=== PATIENT | female | born 1980 | race Caucasian/White ===

== ENCOUNTER 2022-09-08 15:39 | Inpatient (IN) ==
[2022-09-08] MEDS ORDERED: 0.9 % SODIUM CHLORIDE 1,000 ML IV ONE ×2 (16:07→20:46)
[2022-09-08] MEDS ORDERED: ONDANSETRON 4 MG/2 ML VIAL IV PRN (16:07)
--- NOTE | 2022-09-08 16:07 | Emergency Department Note ---
Wound/Laceration HIP General Chief Complaint: Wound/Laceration Stated Complaint: Foot problem Time Seen by Provider: 09/08/22 16:01 Source: patient Mode of arrival: wheelchair Limitations: no limitations History of Present Illness HPI Narrative: Narrative: This is a 41-year-old female with history of type 1 diabetes who presents to the emergency department for evaluation of her right foot status post amputation. Per patient's family, they state that patient was recently discharged from the assisted that she was at. They state that her foot was not being taken care of appropriately and they have noticed increased swelling and redness. They also state that she had been not been given her prescriptions or her insulin on a regular basis. They are concerned about a worsening foot infection. Patient denies any fevers. Related Data Home Medications Medication Instructions Recorded Confirmed Pepto-Bismol 1 dose PO PRN PRN Abdominal 04/22/22 06/20/22 Discomfort aspirin-sodium bicarbonate-citric 324 mg PO QDAY 04/22/22 06/20/22 acid 324 mg effervescent tablet duloxetine 30 mg PO DAILY 04/22/22 06/20/22 naloxone 4 mg/actuation nasal spray 4 mg intranasal Q2M PRN Opioid 04/22/22 06/20/22 Overdose pantoprazole 40 mg PO BID 04/22/22 06/20/22 phosphorated carbohydrate oral 1 ml PO PRN PRN Abdominal 04/22/22 06/20/22 solution (Emetrol oral solution) Discomfort promethazine 25 mg tablet 25 mg PO Q6H PRN Nausea 04/22/22 06/21/22 trazodone 100 mg PO HS PRN Insomnia 04/22/22 06/20/22 albuterol sulfate 90 mcg/actuation 2 puff inhalation Q6H PRN 06/20/22 06/20/22 aerosol inhaler Shortness Of Breath insulin glargine 100 unit/mL (3 20 unit subcut BID 06/20/22 06/20/22 mL) subcutaneous pen Bacillus coagulans-inulin 1 1 cap PO DAILY 06/21/22 06/21/22 billion cell-250 mg capsule atorvastatin 80 mg tablet 80 mg PO QDAY 06/21/22 06/21/22 buspirone 5 mg tablet 10 mg PO TID 06/21/22 06/21/22 gabapentin enacarbil 300 mg 900 mg PO TID 06/21/22 06/21/22 tablet,extended release insulin lispro 100 unit/mL 5 unit subcut AC 06/21/22 06/21/22 subcutaneous pen lisinopril 10 mg tablet 20 mg PO BID 06/21/22 06/21/22 prochlorperazine maleate 5 mg 10 mg PO QID 06/21/22 06/21/22 tablet Allergies Allergy/AdvReac Type Severity Reaction Status Date / Time cefepime Allergy Severe Difficulty Verified 09/08/22 15:43 Breathing Review of Systems ROS ROS Narrative: Narrative: All systems ED: reviewed and negative except as stated. PFSH Narrative Patient History Narrative: Narrative: Medical/Surgical/Family History All Active Problems (Updated 09/08/22 @ 22:33 by Massiel Fong PA-C) Abdominal pain, diffuse (Acute) Anemia (Acute) Cirrhosis (Acute) Hematemesis (Acute) Cellulitis of foot, right (Acute) DKA (diabetic ketoacidosis) (Acute) Migraine headache (Acute) Stage 1 acute kidney injury (Acute) DKA (diabetic ketoacidosis) (Acute) Elevated brain natriuretic peptide (BNP) level (Acute) Edema of face (Acute) SOB (shortness of breath) (Acute) Anasarca (Acute) Methamphetamine abuse (Acute) Acute on chronic kidney failure (Acute) DKA, type 2 (Acute) Cirrhosis of liver (Acute) Anemia (Acute) Hyperglycemia due to type 2 diabetes mellitus (Acute) Abdominal pain (Acute) Social History Smoking Status: Current every day smoker Exam Narrative Narrative: Narrative: General Limitations: no limitations General appearance: Present alert, anxious, nontoxic and tearful (states that her son is "in crisis") Head Head: Present atraumatic and normocephalic Eye Eye: Present normal appearance; Absent scleral icterus Chest Chest: Present symmetric chest wall rise Respiratory Respiratory: Absent respiratory distress Expanded Lower Extremity Foot/toe: Present tenderness, swelling, erythema and amputation Top foot image: 1. Right foot is noted to have amputation of all 5 toes down to the distal metatarsals of the of the first through fifth metatarsals. There is a wound noted along the incision line at the first second metatarsal amputation. It is white with a odor to it. It is tender to the touch and there is a lot of swelli ng of the dorsum of the foot which is red and hot to the touch. Neurological Neurological: Present alert and oriented X3 Psychiatric Psychiatric: Present tearful Course Vital Signs Vital signs: Vital Signs Temperature 97.5 F 09/08/22 15:41 Pulse Rate 105 H 09/08/22 15:41 Respiratory Rate 20 09/08/22 15:41 Blood Pressure 166/103 09/08/22 15:41 Pulse Oximetry (%) 98 09/08/22 15:41 Oxygen Delivery Method Room Air 09/08/22 15:41 Temperature 97.5 F 09/08/22 15:41 Pulse Rate 89 09/08/22 19:00 Respiratory Rate 20 09/08/22 15:41 Blood Pressure 162/113 09/08/22 21:25 Pulse Oximetry (%) 100 09/08/22 19:00 Oxygen Delivery Method Room Air 09/08/22 19:00 MDM MDM Narrative Medical decision making narrative: Narrative: This is a 41-year-old female who presents to the emergency department for evaluation of a right foot amputation. IV access was established for administration of fluids and medications. Labs were collected. It was noted that her glucose level was 603 and her Chem-8. She was immediately given 2 L of normal saline. ESR is 97, CRP is 1.10, beta hydroxybutyrate is 0.81, procalcitonin is 0.13. Patient does not have an elevated white blood cell count. Or a left shift. An x-ray of her right foot did not reveal any signs of osteomyelitis. It did show normal amputation changes. After 2 L of fluid it was noted that the patient's blood glucose level decreased down to 379. At this point she was given 5 units of insulin. She was also started on 1 g of vancomycin along with 4.5 g of Zosyn. Considering the way her foot looks her elevated ESR and the fact that she has hyperglycemia with the elevated hydroxybutyrate and elevated Procalcitonin, I feel that she would benefit from admission to receive IV antibiotics be evaluated by wound clinic and set up for follow-up. I spoke with Dr. Garnica who accepted the patient for admission. At the time of admitting this patient, they were stable for this particular service/floor. Dr. Garnica has accepted the patient to his service based on review of the medical work-up, vitals, history and physical. Dr. Garnica feels comfortable with this patient on his service. Occasionally, patient's clinical status may worsen in the emergency department or on the floor from their pathology presenting requiring further work-up or a higher level of care. Sepsis Sepsis Identified: No Differential Diagnosis Differential Diagnosis: Cellulitis, osteomyelitis, abscess, infected foot ulcer, DKA, hyperglycemia Medical Records Medical records reviewed: Yes I reviewed the patient's medical records. Lab Data Lab results reviewed: Yes I reviewed the patient's lab results. 09/08/22 16:32 Labs: Lab Results 09/08/22 09/08/22 09/08/22 Range/Units 16:32 16:32 16:32 WBC 8.9 (4.5-11.0) K/mcL RBC 3.36 L (3.59-5.38) M/mcL Hgb 9.5 L (11.2-15.7) g/dL Hct 29.3 L (34.1-44.9) % POC Hct (36-48) MCV 87.2 (80.0-100.0) fL MCH 28.3 (26.0-34.0) pg MCHC 32.4 (31.0-36.0) g/dL RDW 13.3 (11.5-14.5) % Plt Count 278 (140-440) K/mcL MPV 11.0 (8.8-12.5) fL Immature Gran % (Auto) 0.2 (0.0-0.5) % Neut % (Auto) 74.0 (38.0-78.0) % Lymph % (Auto) 17.4 (15.5-49.0) % [place] % (Auto) 7.5 (1.0-12.0) % Eos % (Auto) 0.3 (0.0-7.0) % Baso % (Auto) 0.6 (0.0-2.0) % Lymph # (Auto) 1.55 (1.50-4.80) K/mcL [place] # (Auto) 0.67 (0.10-0.90) K/mcL Eos # (Auto) 0.03 (0.00-0.70) K/mcL Baso # (Auto) 0.05 (0.00-0.30) K/mcL Immature Gran # 0.02 (0.00-0.05) K/mcl Absolute Neutrophils 6.60 (1.80-8.00) K/mcL ESR 97 H (0-20) mm/hr POC VBG pH (7.32-7.42) POC VBG pCO2 at Temp (41-51) POC VBG pO2 (25-40) POC VBG HCO3 (24-28) POC VBG Total CO2 (25-29) POC Venous O2 Sat (40-70) POC VBG Base Excess (-2-2) VBG Lactic Acid (0.5-2) POC Sodium (133-145) POC Potassium (3.3-5.1) POC Chloride (96-108) POC Total CO2 (22-30) POC Anion Gap (8.0-16.0) POC BUN (6-20) POC Creatinine (0.6-1.2) POC Glucose (70-105) POC WB Ioniz Calcium (1.16-1.32) Total Bilirubin 0.4 (0.1-1.0) mg/dL Direct Bilirubin < 0.2 (0-0.3) mg/dL AST 13 (<32) U/L ALT 19 (<40) U/L Alkaline Phosphatase 190 H (39-117) U/L C-Reactive Protein 1.10 H (0.03-0.80) mg/dL Total Protein 6.8 (5.9-8.4) gm/dL Albumin 2.7 L (3.2-5.2) gm/dL Globulin 4.1 H (2.2-3.7) gm/dL Beta-Hydroxybutyrate 0.81 H (<0.27) mmol/L Procalcitonin 0.13 H (<0.10) ng/mL 09/08/22 09/08/22 Range/Units 16:36 16:40 WBC (4.5-11.0) K/mcL RBC (3.59-5.38) M/mcL Hgb (11.2-15.7) g/dL Hct (34.1-44.9) % POC Hct 31.0 L (36-48) MCV (80.0-100.0) fL MCH (26.0-34.0) pg MCHC (31.0-36.0) g/dL RDW (11.5-14.5) % Plt Count (140-440) K/mcL MPV (8.8-12.5) fL Immature Gran % (Auto) (0.0-0.5) % Neut % (Auto) (38.0-78.0) % Lymph % (Auto) (15.5-49.0) % [place] % (Auto) (1.0-12.0) % Eos % (Auto) (0.0-7.0) % Baso % (Auto) (0.0-2.0) % Lymph # (Auto) (1.50-4.80) K/mcL [place] # (Auto) (0.10-0.90) K/mcL Eos # (Auto) (0.00-0.70) K/mcL Baso # (Auto) (0.00-0.30) K/mcL Immature Gran # (0.00-0.05) K/mcl Absolute Neutrophils (1.80-8.00) K/mcL ESR (0-20) mm/hr POC VBG pH 7.37 (7.32-7.42) POC VBG pCO2 at Temp 27.9 L (41-51) POC VBG pO2 44 H (25-40) POC VBG HCO3 16.3 L (24-28) POC VBG Total CO2 17.0 L (25-29) POC Venous O2 Sat 80.0 H (40-70) POC VBG Base Excess -9.0 L (-2-2) VBG Lactic Acid 1.1 (0.5-2) POC Sodium 130 L (133-145) POC Potassium 4.4 (3.3-5.1) POC Chloride 102 (96-108) POC Total CO2 19.0 L (22-30) POC Anion Gap 15.0 (8.0-16.0) POC BUN 31 H (6-20) POC Creatinine 1.7 H (0.6-1.2) POC Glucose 603 H* (70-105) POC WB Ioniz Calcium 1.20 (1.16-1.32) Total Bilirubin (0.1-1.0) mg/dL Direct Bilirubin (0-0.3) mg/dL AST (<32) U/L ALT (<40) U/L Alkaline Phosphatase (39-117) U/L C-Reactive Protein (0.03-0.80) mg/dL Total Protein (5.9-8.4) gm/dL Albumin (3.2-5.2) gm/dL Globulin (2.2-3.7) gm/dL Beta-Hydroxybutyrate (<0.27) mmol/L Procalcitonin (<0.10) ng/mL Radiology Data Radiology results reviewed: Yes I reviewed the patient's radiology results. Radiology results narrative: [facility] NAME: Rebekah Angulo [address] [place] [address] : 1980 [address] Service Date: 09/08/22 Report # [id number] [place] [address] Elvis Jimenez M.D. MR #: [id number] XRay Report Signed Ordering Physician:Massiel Fong PA-C Date of Service:09/08/22 Procedure(s):XR foot comp RT 3V CLINICAL INFORMATION: diabetic, worsening wound r/o osteo COMPARISON: 07/09/2022 FINDINGS: Transmetatarsal amputation of the third fourth and fifth rays seen as before. Since the previous exam, first and second amputations have been extended to the mid metatarsal levels. There is moderate callus surrounding the first and second mid metatarsals at the amputation site. No definite evidence of osteomyelitis. Other joint spaces are normal. Diffuse soft tissue swelling appreciated. IMPRESSION: Amputation changes. Interpreted and Authenticated by: Elvis Jimenez 09/08/22 19 19 Mold Insert Changer: <Electronically signed by Elvis Jimenez M.D. in OV> 09/08/221722 Pulse Oximetry Data Pulse Ox %: 100 Interpretation: O2 sats are 100% on room air. Patient does not show any signs of hypoxia. Discharge Plan Patient/Caregiver Discharge Instructions Pt seen by FOREST FIREFIGHTER/PA only: Yes Clinical Impression: Cellulitis of foot, right, DKA (diabetic ketoacidosis) Patient Disposition: Xfer As Inpt ([facility]) Follow up with: No,PCP [Primary Care Provider] - Prescriptions: No Action aspirin-sod bicarb-citric acid 324 mg Tablet, Effervescent 324 mg PO QDAY naloxone 4 mg/actuation [place],Non-Aerosol 4 mg INTRANASAL Q2M PRN (Reason: Opioid Overdose) Rx Instructions: spray 1 dose into ONE nostril; alternate nostrils w each dose until help arrives Emetrol Solution 1 ml PO PRN PRN (Reason: Abdominal Discomfort) promethazine 25 mg Tablet 25 mg PO Q6H PRN (Reason: Nausea) Pepto-Bismol 1 dose PO PRN PRN (Reason: Abdominal Discomfort) duloxetine 30 mg PO DAILY pantoprazole 40 mg PO BID trazodone 100 mg PO HS PRN (Reason: Insomnia) insulin glargine 100 unit/mL (3 mL) Insulin Pen 20 unit SUBCUT BID albuterol sulfate 90 mcg/actuation Hfa Aerosol Inhaler 2 puff INHALATION Q6H PRN (Reason: Shortness Of Breath) atorvastatin 80 mg Tablet 80 mg PO QDAY buspirone 5 mg Tablet 10 mg PO TID Bacillus coagulans-inulin 1 billion-250 cell-mg Capsule 1 cap PO DAILY gabapentin enacarbil 300 mg Tablet Extended Release 900 mg PO TID lisinopril 10 mg Tablet 20 mg PO BID prochlorperazine maleate 5 mg Tablet 10 mg PO QID Rx Instructions: Take before meals insulin lispro 100 unit/mL Insulin Pen 5 unit SUBCUT AC
[2022-09-08 16:46] LABS: POC Calcium, Ionized 1.2 (1.16-1.32); POC Creatinine 1.7 (0.6-1.2); POC Potassium 4.4 (3.3-5.1)
[2022-09-08] MEDS: morphine 2 MG/ML VIAL IV PRN ×2 (16:58→18:12)
[2022-09-08 17:14] LABS: Basophils # (Auto) 0.05 K/mcL (0.00-0.30); Basophils % (Auto) 0.6 % (0.0-2.0); Eosinophils # (Auto) 0.03 K/mcL (0.00-0.70); Eosinophils % (Auto) 0.3 % (0.0-7.0); Hematocrit 29.3 % (34.1-44.9); Hemoglobin 9.5 g/dL (11.2-15.7); Lymphocytes # (Auto) 1.55 K/mcL (1.50-4.80); Lymphocytes % (Auto) 17.4 % (15.5-49.0); Mean Cell Volume 87.2 fL (80.0-100.0); Mean Corpuscular HGB Conc 32.4 g/dL (31.0-36.0); Monocytes # (Auto) 0.67 K/mcL (0.10-0.90); Monocytes % (Auto) 7.5 % (1.0-12.0); Platelet Count 278 K/mcL (140-440); RBC 3.36 M/mcL (3.59-5.38); Red Cell Distribution Width 13.3 % (11.5-14.5); WBC 8.9 K/mcL (4.5-11.0)
--- NOTE | 2022-09-08 17:26 | XRay Report ---
CLINICAL INFORMATION: diabetic, worsening wound r/o osteo COMPARISON: 07/09/2022 FINDINGS: Transmetatarsal amputation of the third fourth and fifth rays seen as before. Since the previous exam, first and second amputations have been extended to the mid metatarsal levels. There is moderate callus surrounding the first and second mid metatarsals at the amputation site. No definite evidence of osteomyelitis. Other joint spaces are normal. Diffuse soft tissue swelling appreciated. IMPRESSION: Amputation changes. Interpreted and Authenticated by: Elvis Jimenez 09/08/22
[2022-09-08 17:29] LABS: Erythrocyte Sedimentation Rate 97 mm/hr (0-20)
[2022-09-08 17:33] LABS: ALT/SGPT 19 U/L (<40); AST/SGOT 13 U/L (<32); Albumin 2.7 gm/dL (3.2-5.2); Alkaline Phosphatase 190 U/L (39-117); Beta Hydroxybutyrate 0.81 mmol/L (<0.27); Bilirubin,Direct < 0.2 mg/dL (0-0.3); Bilirubin,Total 0.4 mg/dL (0.1-1.0); Globulin 4.1 gm/dL (2.2-3.7)
[2022-09-08] MEDS ORDERED: KETOROLAC 30 MG/ML VIAL IV ONE (20:24)
[2022-09-08] MEDS ORDERED: morphine 4 MG/ML VIAL IV ONE (20:24)
[2022-09-08] MEDS ORDERED: KETOROLAC 15 MG/ML VIAL ONE (20:50)
[2022-09-08] MEDS ORDERED: morphine 4 MG/ML VIAL ONE (20:50)
[2022-09-08] MEDS ORDERED: INSULIN REGULAR, HUMAN 1 UNIT/0.01 ML UNIT SQ ONE (20:59)
[2022-09-08] MEDS ORDERED: PIPERACILLIN SODIUM/TAZOBACTAM 4.5 GM in DEXTROSE 5% IN WATER 50 ML IV ONE (21:00)
[2022-09-08] MEDS ORDERED: VANCOMYCIN 1,000 MG in 0.9 % SODIUM CHLORIDE 250 ML IV ONE (21:00)
[2022-09-08] MEDS ORDERED: INSULIN REGULAR, HUMAN 1 UNIT/0.01 ML UNIT ONE (21:03)
--- NOTE | 2022-09-08 22:37 | Internal Med History&Physical ---
HPI History of Present Illness Patient information: Note initiated : 09/08/22 at 10:34 pm Service Date, if different from initiated Date: [] Patient: Rebekah Angulo 41 y/o F admitted on . Chief Complaint: [] History of present illness: Ms. Angulo is a 41-year-old female with a history of type 1 diabetes mellitus, diabetic infections requiring lower extremity amputations, chronic kidney disease stage III, liver cirrhosis, history of substance use disorder presented to the ED with concerns for a right foot infection at the site of prior partial foot amputation. The patient says that she had her foot partially amputated in [place], [facility] it was at [facility]. The patient was then discharged to a long term facility in [place], [place] and recently discharged to home. Recently there has been purulence and pain from a dehisced area at the surgical site on her right foot. In the emergency department, the patient was afebrile and vitals were normal except for moderate hypertension. There is no leukocytosis, hemoglobin was 9.5 which was higher than her baseline. Sodium level was 130, renal function was at her baseline. [id number] glucose check was initially 603 and improved to 290 in the ED. An x-ray of the right foot did not show any evidence of bone changes that would be concerning for osteomyelitis. Procalcitonin level was 0.13. CRP level was 1.1. The patient was given vancomycin IV and Zosyn. Hospital medicine asked to admit the patient. Review of systems Constitutional: no fever, fatigue, or weight loss Eyes: no vision changes or pain Cardiovascular: no chest pain, no palpitations Respiratory: no cough or dyspnea Gastrointestinal: no abdominal pain, no nausea, vomiting, or diarrhea Genitourinary: no dysuria or difficulty voiding Musculoskeletal: no arthralgia or myalgia Integumentary: Purulence at right foot surgical incision, increase in pain. History of left BKA partial right foot amputation. Neurological: Positive for decreased sensation in right lower extremity. Psychiatric: no anxiety or depression Physical exam Head: Atraumatic, normal inspection. Eyes: normal appearance, no scleral icterus. Neck: full ROM Respiratory: no respiratory distress. Cardiovascular: normal rate and rhythm, S1, S2. GI/Abdominal: soft, nontender, no guarding. Extremities: Dehisced wound at right partial foot amputation surgical incision site, purulence present, no fluctuance on exam history of left BKA. Neurological: CN II-XII intact, intact motor PFSH PFSH All Active Problems (Updated 09/08/22 @ 22:33 by Massiel Fong PA-C) Abdominal pain, diffuse (Acute) Anemia (Acute) Cirrhosis (Acute) Hematemesis (Acute) Cellulitis of foot, right (Acute) DKA (diabetic ketoacidosis) (Acute) Migraine headache (Acute) Stage 1 acute kidney injury (Acute) DKA (diabetic ketoacidosis) (Acute) Elevated brain natriuretic peptide (BNP) level (Acute) Edema of face (Acute) SOB (shortness of breath) (Acute) Anasarca (Acute) Methamphetamine abuse (Acute) Acute on chronic kidney failure (Acute) DKA, type 2 (Acute) Cirrhosis of liver (Acute) Anemia (Acute) Hyperglycemia due to type 2 diabetes mellitus (Acute) Abdominal pain (Acute) Social History smoking status: Current every day smoker smoking status start date: 03/01/91 MEDS/ALLERGIES Home Medications and Allergies Home Medications Medication Instructions Recorded Confirmed Type aspirin-sodium bicarbonate-citric 324 mg PO QDAY 04/22/22 09/09/22 History acid 324 mg effervescent tablet naloxone 4 mg/actuation nasal spray 4 mg intranasal Q2M PRN Opioid 04/22/22 09/09/22 History Overdose pantoprazole 40 mg PO BID 04/22/22 09/09/22 History promethazine 25 mg tablet 25 mg PO Q6H PRN Nausea 04/22/22 09/09/22 History trazodone 100 mg PO HS PRN Insomnia 04/22/22 09/09/22 History albuterol sulfate 90 mcg/actuation 2 puff inhalation Q6H PRN 06/20/22 09/09/22 History aerosol inhaler Shortness Of Breath insulin glargine 100 unit/mL (3 38 unit subcut QAM 06/20/22 09/09/22 History mL) subcutaneous pen Bacillus coagulans-inulin 1 1 cap PO DAILY 06/21/22 09/09/22 History billion cell-250 mg capsule atorvastatin 80 mg tablet 80 mg PO QDAY 06/21/22 09/09/22 History buspirone 5 mg tablet 10 mg PO BID 06/21/22 09/09/22 History gabapentin enacarbil 300 mg 300 mg PO TID 06/21/22 09/09/22 History tablet,extended release insulin lispro 100 unit/mL 7 unit subcut AC 06/21/22 09/09/22 History subcutaneous pen lisinopril 10 mg tablet 10 mg PO QAM 06/21/22 09/09/22 History acetaminophen 500 mg tablet 500 mg PO Q4HP PRN Pain 09/09/22 09/09/22 History amlodipine 5 mg tablet 5 mg PO BID 09/09/22 09/09/22 History cholecalciferol (vitamin D3) 125 125 mcg PO QDAY 09/09/22 09/09/22 History mcg (5,000 unit) tablet duloxetine 30 mg capsule,delayed 30 mg PO QDAY 09/09/22 09/09/22 History release sprinkle hydrocodone 5 mg-acetaminophen 325 1 tab PO Q6H PRN Pain 09/09/22 09/09/22 History mg tablet metoclopramide HCl 5 mg tablet 5 mg PO ACHS PRN Nausea 09/09/22 09/09/22 History metoprolol succinate 100 mg 100 mg PO BID 09/09/22 09/09/22 History tablet,extended release 24 hr simethicone 80 mg chewable tablet 80 mg PO QID 09/09/22 09/09/22 History Allergies Allergy/AdvReac Type Severity Reaction Status Date / Time cefepime Allergy Severe Swelling Verified 09/09/22 01:25 of Lip/Tongue/Throat Peanuts AdvReac Intermediate Rash Uncoded 09/09/22 01:26 EXAM Constitutional Vitals: Temp Pulse Resp BP Pulse Ox O2 Del Method 97.5 F 78 20 158/98 100 Room Air 09/08/22 15:41 09/08/22 22:16 09/08/22 15:41 09/08/22 22:16 09/08/22 22:16 09/08/22 19:00 DATA Data Completed and Pending Labs: Labs from last 24 hours 09/08/22 09/08/22 09/08/22 16:40 16:36 16:32 WBC RBC Hgb Hct POC Hct 31.0 L MCV MCH MCHC RDW Plt Count MPV Immature Gran % (Auto) Neut % (Auto) Lymph % (Auto) [place] % (Auto) Eos % (Auto) Baso % (Auto) Lymph # (Auto) [place] # (Auto) Eos # (Auto) Baso # (Auto) Immature Gran # Absolute Neutrophils ESR POC VBG pH 7.37 POC VBG pCO2 at Temp 27.9 L POC VBG pO2 44 H POC VBG HCO3 16.3 L POC VBG Total CO2 17.0 L POC Venous O2 Sat 80.0 H POC VBG Base Excess -9.0 L VBG Lactic Acid 1.1 POC Sodium 130 L POC Potassium 4.4 POC Chloride 102 POC Total CO2 19.0 L POC Anion Gap 15.0 POC BUN 31 H POC Creatinine 1.7 H POC Glucose 603 H* POC WB Ioniz Calcium 1.20 Total Bilirubin Direct Bilirubin AST ALT Alkaline Phosphatase C-Reactive Protein Total Protein Albumin Globulin Beta-Hydroxybutyrate Procalcitonin 0.13 H 09/08/22 09/08/22 16:32 16:32 WBC 8.9 RBC 3.36 L Hgb 9.5 L Hct 29.3 L POC Hct MCV 87.2 MCH 28.3 MCHC 32.4 RDW 13.3 Plt Count 278 MPV 11.0 Immature Gran % (Auto) 0.2 Neut % (Auto) 74.0 Lymph % (Auto) 17.4 [place] % (Auto) 7.5 Eos % (Auto) 0.3 Baso % (Auto) 0.6 Lymph # (Auto) 1.55 [place] # (Auto) 0.67 Eos # (Auto) 0.03 Baso # (Auto) 0.05 Immature Gran # 0.02 Absolute Neutrophils 6.60 ESR 97 H POC VBG pH POC VBG pCO2 at Temp POC VBG pO2 POC VBG HCO3 POC VBG Total CO2 POC Venous O2 Sat POC VBG Base Excess VBG Lactic Acid POC Sodium POC Potassium POC Chloride POC Total CO2 POC Anion Gap POC BUN POC Creatinine POC Glucose POC WB Ioniz Calcium Total Bilirubin 0.4 Direct Bilirubin < 0.2 AST 13 ALT 19 Alkaline Phosphatase 190 H C-Reactive Protein 1.10 H Total Protein 6.8 Albumin 2.7 L Globulin 4.1 H Beta-Hydroxybutyrate 0.81 H Procalcitonin A/P Narrative A/P Narrative: Assessment: 41 year old female with a history of multiple comorbidities including Type 1 diabetes mellitus, CKD stage 3, liver cirrhosis, history of substance use disorder, left BKA, recent foot amputation reportedly at [facility] in [place] admitted for an infection at the foot amputation surgical site. Plan: -Vancomycin and Zosyn. -IV fluid. -Blood cultures. -Analgesics. -MRI right foot. -Lantus, prandial NovoLog, SSI low dose. -Wound cares. -Discuss with wound care surgery. -Home medications reconciliation. -DVT prophylaxis: Heparin SQ. -CODE STATUS: Platform Engineer Spent With Patient Time: Total time spent is greater than 50% in coordination of care (as documented) at patient's floor/unit and/or counseling patient:
[2022-09-08] MEDS ORDERED: VANCOMYCIN PER PHARMACY IV ONE (23:18)
[2022-09-08] MEDS ORDERED: DEXTROSE 50% 50 ML VIAL IV PRN (23:18)
[2022-09-08] MEDS ORDERED: ACETAMINOPHEN 325 MG TABLET PO PRN (23:18)
[2022-09-08] MEDS ORDERED: SENNOSIDES 1 TABLET PO PRN (23:18)
[2022-09-08] MEDS ORDERED: DEXTROSE 31 GM ORAL.SUSP PO PRN (23:18)
[2022-09-08] MEDS ORDERED: LACTULOSE 20 GM/30 ML ORAL.SOL PO PRN (23:18)
[2022-09-08] MEDS: PIPERACILLIN SODIUM/TAZOBACTAM 4.5 GM in DEXTROSE 5% IN WATER 50 ML IV SCH (23:42)
[2022-09-08] MEDS: HYDROcodone/APAP 5/325MG TABLET PO PRN (23:44)
[2022-09-08] MEDS ORDERED: HYDROcodone/APAP 5/325MG TABLET PO ONE (23:45)
[2022-09-08] MEDS ORDERED: INSULIN GLARGINE, HUMAN 1 UNIT/0.01 ML SQ ONE (23:58)
[2022-09-08] MEDS: INSULIN GLARGINE, HUMAN 1 UNIT/0.01 ML SQ SCH ×2 (23:58)
[2022-09-09] MEDS: 0.9 % SODIUM CHLORIDE 1,000 ML IV SCH ×2 (00:07→07:03)
[2022-09-09] MEDS ORDERED: ACETAMINOPHEN 325 MG TABLET PO ONE (01:21)
[2022-09-09] MEDS: HYDROcodone/APAP 5/325MG TABLET PO PRN ×2 (03:07→07:02)
[2022-09-09] MEDS ORDERED: HYDROcodone/APAP 5/325MG TABLET PO ONE (03:10)
[2022-09-09] MEDS: ONDANSETRON 4 MG/2 ML VIAL IV PRN ×3 (05:37→20:00)
[2022-09-09] MEDS ORDERED: ONDANSETRON 4 MG/2 ML VIAL ONE (05:40)
[2022-09-09] MEDS: 0.9 % SODIUM CHLORIDE 10 ML SYRINGE IV SCH ×3 (07:03→21:24)
[2022-09-09] MEDS: PIPERACILLIN SODIUM/TAZOBACTAM 4.5 GM in DEXTROSE 5% IN WATER 50 ML IV SCH (07:03)
[2022-09-09 07:04] LABS: Basophils # (Auto) 0.05 K/mcL (0.00-0.30); Basophils % (Auto) 0.8 % (0.0-2.0); Eosinophils # (Auto) 0.17 K/mcL (0.00-0.70); Eosinophils % (Auto) 2.7 % (0.0-7.0); Hematocrit 24.4 % (34.1-44.9); Hemoglobin 7.6 g/dL (11.2-15.7); Lymphocytes # (Auto) 1.88 K/mcL (1.50-4.80); Lymphocytes % (Auto) 29.5 % (15.5-49.0); Mean Cell Volume 91.4 fL (80.0-100.0); Mean Corpuscular HGB Conc 31.1 g/dL (31.0-36.0); Mean Platelet Volume 10.5 fL (8.8-12.5); Monocytes # (Auto) 0.66 K/mcL (0.10-0.90); Monocytes % (Auto) 10.3 % (1.0-12.0); Neutrophils % (Auto) 56.5 % (38.0-78.0); Platelet Count 209 K/mcL (140-440); RBC 2.67 M/mcL (3.59-5.38); Red Cell Distribution Width 13.9 % (11.5-14.5); WBC 6.4 K/mcL (4.5-11.0)
[2022-09-09] MEDS ORDERED: INSULIN LISPRO 1 UNIT/0.01 ML UNIT SQ SCH ×3 (07:30→11:30)
[2022-09-09 07:36] LABS: ALT/SGPT 16 U/L (<40); AST/SGOT 14 U/L (<32); Albumin 2.3 gm/dL (3.2-5.2); Albumin/Globulin Ratio 0.7 (1.0-2.3); Alkaline Phosphatase 160 U/L (39-117); Bilirubin,Direct < 0.2 mg/dL (0-0.3); Bilirubin,Total < 0.2 mg/dL (0.1-1.0); Blood Urea Nitrogen 29 mg/dL (6-20); Calcium 8.1 mg/dL (8.6-10.4); Carbon Dioxide 17 mmol/L (22-30); Chloride 106 mmol/L (96-108); Globulin 3.2 gm/dL (2.2-3.7); Glomerular Filtration Rate 39; Glucose 290 mg/dL (70-105); Lactate Dehydrogenase 273 U/L (135-225); Triglycerides 211 mg/dL (<150); Uric Acid 3.6 mg/dL (2.5-8.0)
[2022-09-09] MEDS ORDERED: MAGNESIUM SULFATE 2 GM/50 ML BAG IV ONE (08:01)
[2022-09-09] MEDS: HEPARIN 5,000 UNIT/ML VIAL SQ SCH ×2 (09:05→21:14)
[2022-09-09] MEDS: DOCUSATE SODIUM 100 MG CAPSULE PO SCH ×2 (09:06→21:13)
[2022-09-09] MEDS: morphine 15 MG TAB.SR.12H PO SCH ×2 (09:34→21:15)
[2022-09-09] MEDS ORDERED: MEROPENEM 0.5 GM in 0.9 % SODIUM CHLORIDE 50 ML IV SCH (10:30)
[2022-09-09] MEDS ORDERED: VANCOMYCIN PER PHARMACY IV SCH (10:30)
[2022-09-09] MEDS: MEROPENEM 1 GM in 0.9 % SODIUM CHLORIDE 50 ML IV SCH ×2 (10:50→21:24)
[2022-09-09] MEDS: VANCOMYCIN 1,000 MG in 0.9 % SODIUM CHLORIDE 250 ML IV SCH (10:50)
[2022-09-09] MEDS: HYDROmorphone 0.5 MG/0.5 ML SYRINGE IV PRN ×3 (13:12→19:41)
--- NOTE | 2022-09-09 15:09 | General Surgery Consult Note ---
HPI Date of Consult Consult Date: 09/09/22 Requesting physician: Ruel Garnica Primary Care Provider: PCP No Consult Narrative History of present illness: Admitted via ER with Cellulitis RIGHT foot around TMA surgical scar site. cc:: I know this patient well. I last saw her in MAY when she was is hospital here. I reviewed all notes and her progress with Twila RN taking care of patient. Spoke with Dr. Garnica about plan of care. CC: Ruel Garnica MD [facility] PFS All Active Problems Abdominal pain, diffuse (Acute) Anemia (Acute) Cirrhosis (Acute) Hematemesis (Acute) Cellulitis of foot, right (Acute) DKA (diabetic ketoacidosis) (Acute) Migraine headache (Acute) Stage 1 acute kidney injury (Acute) DKA (diabetic ketoacidosis) (Acute) Elevated brain natriuretic peptide (BNP) level (Acute) Edema of face (Acute) SOB (shortness of breath) (Acute) Anasarca (Acute) Methamphetamine abuse (Acute) Acute on chronic kidney failure (Acute) DKA, type 2 (Acute) Cirrhosis of liver (Acute) Anemia (Acute) Hyperglycemia due to type 2 diabetes mellitus (Acute) Abdominal pain (Acute) Social History smoking status: Current every day smoker smoking status start date: 03/01/91 MEDS/ALLERGIES Home Medications and Allergies Home Medications Medication Instructions Recorded Confirmed Type aspirin-sodium bicarbonate-citric 324 mg PO QDAY 04/22/22 09/09/22 History acid 324 mg effervescent tablet naloxone 4 mg/actuation nasal spray 4 mg intranasal Q2M PRN Opioid 04/22/22 09/09/22 History Overdose pantoprazole 40 mg PO BID 04/22/22 09/09/22 History promethazine 25 mg tablet 25 mg PO Q6H PRN Nausea 04/22/22 09/09/22 History trazodone 100 mg PO HS PRN Insomnia 04/22/22 09/09/22 History albuterol sulfate 90 mcg/actuation 2 puff inhalation Q6H PRN 06/20/22 09/09/22 History aerosol inhaler Shortness Of Breath insulin glargine 100 unit/mL (3 38 unit subcut QAM 06/20/22 09/09/22 History mL) subcutaneous pen Bacillus coagulans-inulin 1 1 cap PO DAILY 06/21/22 09/09/22 History billion cell-250 mg capsule atorvastatin 80 mg tablet 80 mg PO QDAY 06/21/22 09/09/22 History buspirone 5 mg tablet 10 mg PO BID 06/21/22 09/09/22 History gabapentin enacarbil 300 mg 300 mg PO TID 06/21/22 09/09/22 History tablet,extended release insulin lispro 100 unit/mL 7 unit subcut AC 06/21/22 09/09/22 History subcutaneous pen lisinopril 10 mg tablet 10 mg PO QAM 06/21/22 09/09/22 History acetaminophen 500 mg tablet 500 mg PO Q4HP PRN Pain 09/09/22 09/09/22 History amlodipine 5 mg tablet 5 mg PO BID 09/09/22 09/09/22 History cholecalciferol (vitamin D3) 125 125 mcg PO QDAY 09/09/22 09/09/22 History mcg (5,000 unit) tablet duloxetine 30 mg capsule,delayed 30 mg PO QDAY 09/09/22 09/09/22 History release sprinkle hydrocodone 5 mg-acetaminophen 325 1 tab PO Q6H PRN Pain 09/09/22 09/09/22 History mg tablet metoclopramide HCl 5 mg tablet 5 mg PO ACHS PRN Nausea 09/09/22 09/09/22 History metoprolol succinate 100 mg 100 mg PO BID 09/09/22 09/09/22 History tablet,extended release 24 hr simethicone 80 mg chewable tablet 80 mg PO QID 09/09/22 09/09/22 History Allergies Allergy/AdvReac Type Severity Reaction Status Date / Time cefepime Allergy Severe Swelling Verified 09/09/22 01:25 of Lip/Tongue/Throat peanut Allergy Mild Rash Verified 09/09/22 08:47 Physical Examination Vital Signs Vital signs: Temp Pulse Resp BP Pulse Ox O2 Del Method 97 F 80 20 145/89 100 Room Air 09/09/22 13:00 09/09/22 12:49 09/09/22 12:49 09/09/22 12:00 09/09/22 12:49 09/09/22 08:00 General physical appearance General physical exam: well developed, well nourished, no distress, no pain and other (She is at her baseline. ) Eyes Eye exam: PERRL and normal ocular movement ENT ENT exam: normal pinna, normal mucosa and no congestion Head Head exam IM: Present atraumatic and normocephalic Neck Neck exam: no masses and no venous distension Cardiovascular Cardiovascular exam IM: Present normal rate and rhythm Respiratory Respiratory exam: normal expansion and clear to auscultation Abdomen Abdomen: Present soft, non tender and bowel sounds Integumentary Integumentary: Present other (Well healed scar LEFT BKA. Resolving CSSI / Cellulitis around scar of RIGHT for foot TMA. Small open area at lateral end of wound 2 x 1 x 0.5 CM with hyper trophic granulations) Neurologic Neurologic: Present other (Peripheral neuropathy) Musculoskeletal Musculoskeletal: Present other (LEFT BKA. Well healed stump. FROM of LEFT knee. RIGHT forefoot TMA. Partial chronic separation of latreal end of scar. Resolving periwound edema, erythema. NO draiange and NO odor. ) Psychiatric Psychiatric: Present oriented to time, oriented to person, oriented to place, speech is normal, memory intact and other (No gross focal neurological deficits. ) Additional Findings Additional exam: Reviewed Lab results. Wound care plan reviewed with nurse and Dr. Garnica. Results Labs 09/09/22 05:47 09/09/22 05:47 Labs: Abnormal lab results 09/08/22 09/08/22 09/08/22 Range/Units 16:32 16:32 16:32 RBC 3.36 L (3.59-5.38) M/mcL Hgb 9.5 L (11.2-15.7) g/dL Hct 29.3 L (34.1-44.9) % POC Hct (36-48) ESR 97 H (0-20) mm/hr POC VBG pCO2 at Temp (41-51) POC VBG pO2 (25-40) POC VBG HCO3 (24-28) POC VBG Total CO2 (25-29) POC Venous O2 Sat (40-70) POC VBG Base Excess (-2-2) POC Sodium (133-145) Sodium (133-145) mmol/L Carbon Dioxide (22-30) mmol/L POC Total CO2 (22-30) POC BUN (6-20) BUN (6-20) mg/dL Creatinine (0.6-1.1) mg/dL POC Creatinine (0.6-1.2) Glucose (70-105) mg/dL POC Glucose (70-105) Calcium (8.6-10.4) mg/dL Magnesium (1.6-2.5) mg/dL GGT (5-36) U/L Alkaline Phosphatase 190 H (39-117) U/L Lactate Dehydrogenase (135-225) U/L C-Reactive Protein 1.10 H (0.03-0.80) mg/dL Total Protein (5.9-8.4) gm/dL Albumin 2.7 L (3.2-5.2) gm/dL Globulin 4.1 H (2.2-3.7) gm/dL Albumin/Globulin Ratio (1.0-2.3) Triglycerides (<150) mg/dL Beta-Hydroxybutyrate 0.81 H (<0.27) mmol/L Procalcitonin 0.13 H (<0.10) ng/mL 09/08/22 09/08/22 09/09/22 Range/Units 16:36 16:40 05:47 RBC 2.67 L (3.59-5.38) M/mcL Hgb 7.6 L (11.2-15.7) g/dL Hct 24.4 L (34.1-44.9) % POC Hct 31.0 L (36-48) ESR (0-20) mm/hr POC VBG pCO2 at Temp 27.9 L (41-51) POC VBG pO2 44 H (25-40) POC VBG HCO3 16.3 L (24-28) POC VBG Total CO2 17.0 L (25-29) POC Venous O2 Sat 80.0 H (40-70) POC VBG Base Excess -9.0 L (-2-2) POC Sodium 130 L (133-145) Sodium (133-145) mmol/L Carbon Dioxide (22-30) mmol/L POC Total CO2 19.0 L (22-30) POC BUN 31 H (6-20) BUN (6-20) mg/dL Creatinine (0.6-1.1) mg/dL POC Creatinine 1.7 H (0.6-1.2) Glucose (70-105) mg/dL POC Glucose 603 H* (70-105) Calcium (8.6-10.4) mg/dL Magnesium (1.6-2.5) mg/dL GGT (5-36) U/L Alkaline Phosphatase (39-117) U/L Lactate Dehydrogenase (135-225) U/L C-Reactive Protein (0.03-0.80) mg/dL Total Protein (5.9-8.4) gm/dL Albumin (3.2-5.2) gm/dL Globulin (2.2-3.7) gm/dL Albumin/Globulin Ratio (1.0-2.3) Triglycerides (<150) mg/dL Beta-Hydroxybutyrate (<0.27) mmol/L Procalcitonin (<0.10) ng/mL 09/09/22 Range/Units 05:47 RBC (3.59-5.38) M/mcL Hgb (11.2-15.7) g/dL Hct (34.1-44.9) % POC Hct (36-48) ESR (0-20) mm/hr POC VBG pCO2 at Temp (41-51) POC VBG pO2 (25-40) POC VBG HCO3 (24-28) POC VBG Total CO2 (25-29) POC Venous O2 Sat (40-70) POC VBG Base Excess (-2-2) POC Sodium (133-145) Sodium 131 L (133-145) mmol/L Carbon Dioxide 17 L (22-30) mmol/L POC Total CO2 (22-30) POC BUN (6-20) BUN 29 H (6-20) mg/dL Creatinine 1.6 H (0.6-1.1) mg/dL POC Creatinine (0.6-1.2) Glucose 290 H (70-105) mg/dL POC Glucose (70-105) Calcium 8.1 L (8.6-10.4) mg/dL Magnesium 1.5 L (1.6-2.5) mg/dL GGT 95 H (5-36) U/L Alkaline Phosphatase 160 H (39-117) U/L Lactate Dehydrogenase 273 H (135-225) U/L C-Reactive Protein (0.03-0.80) mg/dL Total Protein 5.5 L (5.9-8.4) gm/dL Albumin 2.3 L (3.2-5.2) gm/dL Globulin (2.2-3.7) gm/dL Albumin/Globulin Ratio 0.7 L (1.0-2.3) Triglycerides 211 H (<150) mg/dL Beta-Hydroxybutyrate (<0.27) mmol/L Procalcitonin (<0.10) ng/mL Diabetes panel 09/08/22 09/09/22 Range/Units 16:32 05:47 Sodium 131 L (133-145) mmol/L Potassium 4.2 (3.3-5.1) mmol/L Chloride 106 (96-108) mmol/L Carbon Dioxide 17 L (22-30) mmol/L BUN 29 H (6-20) mg/dL Creatinine 1.6 H (0.6-1.1) mg/dL Glucose 290 H (70-105) mg/dL Calcium 8.1 L (8.6-10.4) mg/dL AST 13 14 (<32) U/L ALT 19 16 (<40) U/L Alkaline Phosphatase 190 H 160 H (39-117) U/L Total Protein 6.8 5.5 L (5.9-8.4) gm/dL Albumin 2.7 L 2.3 L (3.2-5.2) gm/dL Triglycerides 211 H (<150) mg/dL Calcium panel 09/08/22 09/09/22 Range/Units 16:32 05:47 Calcium 8.1 L (8.6-10.4) mg/dL Phosphorus 4.0 (2.5-4.5) mg/dL Albumin 2.7 L 2.3 L (3.2-5.2) gm/dL Pituitary panel 09/09/22 Range/Units 05:47 Sodium 131 L (133-145) mmol/L Potassium 4.2 (3.3-5.1) mmol/L Chloride 106 (96-108) mmol/L Carbon Dioxide 17 L (22-30) mmol/L BUN 29 H (6-20) mg/dL Creatinine 1.6 H (0.6-1.1) mg/dL Glucose 290 H (70-105) mg/dL Calcium 8.1 L (8.6-10.4) mg/dL Adrenal panel 09/08/22 09/09/22 Range/Units 16:32 05:47 Sodium 131 L (133-145) mmol/L Potassium 4.2 (3.3-5.1) mmol/L Chloride 106 (96-108) mmol/L Carbon Dioxide 17 L (22-30) mmol/L BUN 29 H (6-20) mg/dL Creatinine 1.6 H (0.6-1.1) mg/dL Glucose 290 H (70-105) mg/dL Calcium 8.1 L (8.6-10.4) mg/dL Total Bilirubin 0.4 < 0.2 (0.1-1.0) mg/dL AST 13 14 (<32) U/L ALT 19 16 (<40) U/L Alkaline Phosphatase 190 H 160 H (39-117) U/L Total Protein 6.8 5.5 L (5.9-8.4) gm/dL Albumin 2.7 L 2.3 L (3.2-5.2) gm/dL All other labs normal. A/P Narrative A/P Narrative: Assessment: Cellulitis around open wound of RIGHT forefoot TMA. IMPROVING Comorbidities: DM2 HTN CKD, Cirrhosis of liver Everyday smoker Past h/o substance abuse. Plan of Treatment: Plan: Clean RIGHT Foot open wound VASHE Apply Betadine swab to open area and around scar Kerlix gauze and clean sock daily. Agree with IV Vanco and Meropenem at this time. Will be following patient during her hospitalization. Time Spent With Patient Time: Total time spent is greater than 50% in coordination of care (as documented) at patient's floor/unit and/or counseling patient: Initial: Total time with patient: 40 - 54 minutes
[2022-09-09] MEDS: NICOTINE 14 MG PATCH TOPICAL SCH (15:19)
[2022-09-09] MEDS ORDERED: ALBUTEROL SULFATE 2.5 MG/3 ML NEBULIZER NEB PRN (15:43)
--- NOTE | 2022-09-09 15:44 | Magnetic Resonance Report ---
CLINICAL INFORMATION: Evaluate for osteomyelitis or abscess. COMPARISON: Plain films 09/08/2022 and MR 07/10/2022 TECHNIQUE: Axial T1 and T2 proton density coronal proton density sagittal T1 proton density images were acquired the right foot FINDINGS: Transmetatarsal amputation changes of the forefoot appreciated. The third fourth and fifth metatarsal stump are unremarkable. There is marked cellulitis in the mid foot surrounding the first and second metatarsal stumps. In this region, there is increased intramedullary signal the distal aspects of the first and second metatarsals. Findings are compatible with cellulitis and complicating osteomyelitis. IMPRESSION: Severe cellulitis in the mid foot and first and second metatarsal regions. Increased intramedullary signal within the distal and second metatarsal stumps is compatible with associated complicating osteomyelitis. Interpreted and Authenticated by: Elvis Jimenez 09/09/22
[2022-09-09] MEDS: amLODIPine 5 MG TABLET PO SCH ×2 (15:47→21:13)
[2022-09-09] MEDS ORDERED: METOPROLOL SUCCINATE 50 MG TAB.XL.24H PO ONE (16:30)
[2022-09-09] MEDS: PANTOPRAZOLE 40 MG TABLET PO SCH (16:31)
[2022-09-09] MEDS: LISINOPRIL 10 MG TABLET PO SCH (16:31)
[2022-09-09] MEDS: SIMETHICONE 80 MG TAB.CHEW PO SCH ×2 (16:31→21:13)
[2022-09-09] MEDS: oxyCODONE IR 5 MG TABLET PO PRN (17:09)
[2022-09-09] MEDS: INSULIN LISPRO 1 UNIT/0.01 ML UNIT SQ SCH ×2 (17:10→21:14)
[2022-09-09] MEDS ORDERED: hydrALAZINE 20 MG/ML VIAL IV PRN (18:13)
[2022-09-09] MEDS ORDERED: LABETALOL 5 MG/ML ML IV PRN (18:13)
[2022-09-09] MEDS ORDERED: hydrALAZINE 20 MG/ML VIAL ONE (18:23)
[2022-09-09] MEDS ORDERED: INSULIN GLARGINE, HUMAN 1 UNIT/0.01 ML SQ SCH (21:00)
[2022-09-09] MEDS: ATORVASTATIN 40 MG TABLET PO SCH (21:13)
[2022-09-09] MEDS: busPIRone 5 MG TABLET PO SCH (21:14)
[2022-09-09] MEDS: INSULIN GLARGINE, HUMAN 1 UNIT/0.01 ML SQ SCH (21:15)
[2022-09-09] MEDS: GABAPENTIN ENACARBIL 300 MG PO SCH (21:16)
[2022-09-09] MEDS: traZODone HCL 100 MG TABLET PO PRN (22:51)
[2022-09-09] MEDS ORDERED: diphenhydrAMINE 50 MG/ML VIAL ONE (22:59)
[2022-09-09] MEDS: diphenhydrAMINE 50 MG/ML VIAL IV PRN (23:00)
[2022-09-10] MEDS: oxyCODONE IR 5 MG TABLET PO PRN ×4 (00:52→19:41)
[2022-09-10] MEDS: MEROPENEM 1 GM in 0.9 % SODIUM CHLORIDE 50 ML IV SCH ×3 (05:32→22:22)
[2022-09-10] MEDS: HYDROmorphone 0.5 MG/0.5 ML SYRINGE IV PRN ×4 (05:41→15:16)
[2022-09-10] MEDS: 0.9 % SODIUM CHLORIDE 10 ML SYRINGE IV SCH ×3 (06:10→22:24)
[2022-09-10 06:19] LABS: Basophils # (Auto) 0.06 K/mcL (0.00-0.30); Eosinophils # (Auto) 0.14 K/mcL (0.00-0.70); Eosinophils % (Auto) 2.2 % (0.0-7.0); Hematocrit 27.1 % (34.1-44.9); Hemoglobin 8.4 g/dL (11.2-15.7); Lymphocytes # (Auto) 1.85 K/mcL (1.50-4.80); Lymphocytes % (Auto) 29.3 % (15.5-49.0); Mean Cell Volume 91.2 fL (80.0-100.0); Mean Platelet Volume 10.1 fL (8.8-12.5); Monocytes # (Auto) 0.61 K/mcL (0.10-0.90); Monocytes % (Auto) 9.7 % (1.0-12.0); Neutrophils % (Auto) 57.5 % (38.0-78.0); Platelet Count 239 K/mcL (140-440); RBC 2.97 M/mcL (3.59-5.38); Red Cell Distribution Width 14.1 % (11.5-14.5); WBC 6.3 K/mcL (4.5-11.0)
[2022-09-10 06:52] LABS: ALT/SGPT 14 U/L (<40); AST/SGOT 15 U/L (<32); Albumin 2.3 gm/dL (3.2-5.2); Albumin/Globulin Ratio 0.6 (1.0-2.3); Alkaline Phosphatase 155 U/L (39-117); Bilirubin,Direct < 0.2 mg/dL (0-0.3); Bilirubin,Total 0.2 mg/dL (0.1-1.0); Blood Urea Nitrogen 30 mg/dL (6-20); Calcium 8.3 mg/dL (8.6-10.4); Carbon Dioxide 17 mmol/L (22-30); Chloride 110 mmol/L (96-108); Globulin 3.6 gm/dL (2.2-3.7); Glomerular Filtration Rate 36; Glucose 115 mg/dL (70-105); Lactate Dehydrogenase 313 U/L (135-225); Phosphorous 4.4 mg/dL (2.5-4.5); Triglycerides 266 mg/dL (<150); Uric Acid 3.4 mg/dL (2.5-8.0)
[2022-09-10] MEDS: PANTOPRAZOLE 40 MG TABLET PO SCH ×2 (07:10→17:28)
[2022-09-10] MEDS: INSULIN LISPRO 1 UNIT/0.01 ML UNIT SQ SCH ×4 (07:11→22:23)
[2022-09-10] MEDS: diphenhydrAMINE 50 MG/ML VIAL IV PRN ×4 (07:14→22:34)
[2022-09-10] MEDS: ASPIRIN 325 MG ENTERIC COATED TABLET PO SCH (08:58)
[2022-09-10] MEDS: amLODIPine 5 MG TABLET PO SCH ×2 (08:58→22:01)
[2022-09-10] MEDS: HEPARIN 5,000 UNIT/ML VIAL SQ SCH ×2 (08:59→22:02)
[2022-09-10] MEDS: busPIRone 5 MG TABLET PO SCH ×2 (08:59→22:01)
[2022-09-10] MEDS: DOCUSATE SODIUM 100 MG CAPSULE PO SCH ×2 (08:59→22:01)
[2022-09-10] MEDS: SIMETHICONE 80 MG TAB.CHEW PO SCH ×4 (08:59→22:00)
[2022-09-10] MEDS: DULoxetine 30 MG CAPSULE PO SCH (08:59)
[2022-09-10] MEDS: morphine 15 MG TAB.SR.12H PO SCH ×2 (08:59→22:01)
[2022-09-10] MEDS: LISINOPRIL 10 MG TABLET PO SCH (08:59)
[2022-09-10] MEDS: VANCOMYCIN 1,000 MG in 0.9 % SODIUM CHLORIDE 250 ML IV SCH (08:59)
[2022-09-10] MEDS ORDERED: METOPROLOL SUCCINATE 50 MG TAB.XL.24H PO SCH (09:00)
[2022-09-10] MEDS ORDERED: LISINOPRIL 10 MG TABLET PO SCH (09:00)
--- NOTE | 2022-09-10 10:48 | Internal Med Progress Note ---
SUBJECTIVE Subjective Patient information: Note initiated : 09/10/22 at 10:46 am Service Date, if different from initiated Date: [] Patient: Rebekah Angulo 41 y/o F admitted on 09/08/22. Chief Complaint: [] Interval history: Ms. Angulo is a 41-year-old female with a history of type 1 diabetes mellitus, diabetic infections requiring lower extremity amputations, chronic kidney disease stage III, history of substance use disorder presented to the ED with concerns for a right foot infection at the site of prior partial foot amputation. The patient says that she had her foot partially amputated in [place] it was at [facility]. The patient was then discharged to a nursing home facility in [place], [place] and recently discharged to home. Recently there has been purulence and pain from a dehisced area at the surgical site on her right foot. In the emergency department, the patient was afebrile and vitals were normal except for moderate hypertension. There is no leukocytosis, hemoglobin was 9.5 which was higher than her baseline. Sodium level was 130, renal function was at her baseline. [id number] glucose check was initially 603 and improved to 290 in the ED. An x-ray of the right foot did not show any evidence of bone changes that would be concerning for osteomyelitis. Procalcitonin level was 0.13. CRP level was 1.1. The patient was given vancomycin IV and Zosyn. Hospital medicine asked to admit the patient. 09/10. Vital stable overnight. The patient is on a vancomycin IV and meropenem. Avoiding combination of vancomycin and Zosyn due to CKD and risk for acute kidney injury. Right foot superficial wound cultures growing gram-negative bacilli. Blood cultures showing no growth to date. MRI right foot without contrast showed severe cellulitis in the midfoot and first and second metatarsal regions. There was increased intramedullary signal within the distal aspects of the first and second metatarsals concerning for osteomyelitis. Infectious disease consulted. Physical exam Head: Atraumatic, normal inspection. Eyes: normal appearance, no scleral icterus. Neck: full ROM Respiratory: no respiratory distress. Cardiovascular: normal rate and rhythm, S1, S2. GI/Abdominal: soft, nontender, no guarding. Extremities: Dehisced wound at right partial foot amputation surgical incision site, purulence present, no fluctuance on exam history of left BKA. Neurological: CN II-XII intact, intact motor Constitutional Vitals: Vital Signs Temp Pulse Resp BP Pulse Ox O2 Del Method 97.7 F 76 18 130/81 97 Room Air 09/10/22 06:00 09/10/22 10:42 09/10/22 10:42 09/10/22 10:00 09/10/22 10:42 09/10/22 04:00 Period Temp Pulse Resp BP Sys/Ding Pulse Ox O2 Del Method O2 Flow Rate Last 24 Hr 97 F-97.9 F 71-82 9-21 121-181/80-120 96-100 Room Air-Room Air Intake and Output 09/09/22 09/10/22 09/10/22 19:59 03:59 11:59 Intake Total 1999 290 50 Output Total 1300 400 400 Balance 700 -110 -350 Weight 74.208 kg 77.201 kg Intake & Output: Intake & Output 09/09/22 09/10/22 09/10/22 19:59 03:59 11:59 Intake Total 2000 290 50 Output Total 1300 400 400 Balance 700 -110 -350 Weight 74.208 kg 77.201 kg Intake: IV 1300 50 50 Sodium Chloride 0.9% 1,000 ml @ 1000 125 mls/hr IV .Q8H [facility] Rx#: [id number] Merrem 1 gm In Sodium Chloride 50 50 50 0.9% 50 ml @ 100 mls/hr IV Q8H [facility] Rx#:[id number] Vancomycin 1,000 mg In Sodium 250 Chloride 0.9% 250 ml @ 250 mls/ hr IV DAILY [facility] Rx#:[id number] Oral 700 240 Output: Void Amount 1300 400 400 Other: Meal Dinner String cheese, pudding Percent of Meal Consumed 100% Feeding Ability Independent Urine Appearance Clear Clear Clear Urine Color Yellow Bright Yellow Bright Yellow Urine Odor Normal OBJ DATA Labs 09/10/22 05:38 09/10/22 05:39 Labs: Abnormal Lab Results 09/10/22 09/10/22 09/09/22 05:39 05:38 05:47 RBC 2.97 L Hgb 8.4 L Hct 27.1 L POC Hct ESR POC VBG pCO2 at Temp POC VBG pO2 POC VBG HCO3 POC VBG Total CO2 POC Venous O2 Sat POC VBG Base Excess POC Sodium Sodium 131 L Chloride 110 H Carbon Dioxide 17 L 17 L POC Total CO2 Anion Gap 7.0 L POC BUN BUN 30 H 29 H Creatinine 1.7 H 1.6 H POC Creatinine Glucose 115 H 290 H POC Glucose Calcium 8.3 L 8.1 L Magnesium 1.5 L GGT 101 H 95 H Alkaline Phosphatase 155 H 160 H Lactate Dehydrogenase 313 H 273 H C-Reactive Protein Total Protein 5.5 L Albumin 2.3 L 2.3 L Globulin Albumin/Globulin Ratio 0.6 L 0.7 L Triglycerides 266 H 211 H Beta-Hydroxybutyrate Procalcitonin 09/09/22 09/08/22 09/08/22 05:47 16:40 16:36 RBC 2.67 L Hgb 7.6 L Hct 24.4 L POC Hct 31.0 L ESR POC VBG pCO2 at Temp 27.9 L POC VBG pO2 44 H POC VBG HCO3 16.3 L POC VBG Total CO2 17.0 L POC Venous O2 Sat 80.0 H POC VBG Base Excess -9.0 L POC Sodium 130 L Sodium Chloride Carbon Dioxide POC Total CO2 19.0 L Anion Gap POC BUN 31 H BUN Creatinine POC Creatinine 1.7 H Glucose POC Glucose 603 H* Calcium Magnesium GGT Alkaline Phosphatase Lactate Dehydrogenase C-Reactive Protein Total Protein Albumin Globulin Albumin/Globulin Ratio Triglycerides Beta-Hydroxybutyrate Procalcitonin 09/08/22 09/08/22 09/08/22 16:32 16:32 16:32 RBC 3.36 L Hgb 9.5 L Hct 29.3 L POC Hct ESR 97 H POC VBG pCO2 at Temp POC VBG pO2 POC VBG HCO3 POC VBG Total CO2 POC Venous O2 Sat POC VBG Base Excess POC Sodium Sodium Chloride Carbon Dioxide POC Total CO2 Anion Gap POC BUN BUN Creatinine POC Creatinine Glucose POC Glucose Calcium Magnesium GGT Alkaline Phosphatase 190 H Lactate Dehydrogenase C-Reactive Protein 1.10 H Total Protein Albumin 2.7 L Globulin 4.1 H Albumin/Globulin Ratio Triglycerides Beta-Hydroxybutyrate 0.81 H Procalcitonin 0.13 H Meds: Medications Acetaminophen (Acetaminophen 325 Mg Tablet) 325 mg PO Q6HP PRN; Protocol PRN Reason: Per Pain Protocol/Fever > 101 Albuterol Sulfate (Albuterol Sulfate 2.5 Mg/3 Ml Nebulizer) 2.5 mg NEB Q2HP PRN PRN Reason: Shortness Of Breath Amlodipine Besylate (Amlodipine 5 Mg Tablet) 5 mg PO BID [facility] Last Admin: 09/10/22 08:58 Dose: 5 mg Aspirin (Aspirin 325 Mg Enteric Coated Tablet) 325 mg PO DAILY [facility] Last Admin: 09/10/22 08:58 Dose: 325 mg Atorvastatin Calcium (Atorvastatin 40 Mg Tablet) 80 mg PO HS [facility] Last Admin: 09/09/22 21:13 Dose: 80 mg Buspirone HCl (Buspirone 5 Mg Tablet) 10 mg PO BID [facility] Last Admin: 09/10/22 08:59 Dose: 10 mg Dextrose (Dextrose 50% 50 Ml Vial) 0 ml IV UD PRN PRN Reason: Per Sliding Scale Diagnostic Test (Pha) (Accu-Chek 1 Each Strip) 1 each FS ACHS [facility] Last Admin: 09/10/22 07:11 Dose: 1 each Diphenhydramine HCl (Diphenhydramine 50 Mg/Ml Vial) 25 mg IV Q4HP PRN PRN Reason: Itching Last Admin: 09/10/22 07:14 Dose: 25 mg Docusate Sodium (Docusate Sodium 100 Mg Capsule) 100 mg PO BID [facility] Last Admin: 09/10/22 08:59 Dose: 100 mg Duloxetine HCl (Duloxetine 30 Mg Capsule) 30 mg PO DAILY [facility] Last Admin: 09/10/22 08:59 Dose: 30 mg Glucose (Dextrose 31 Gm Oral.Susp) 15 gm PO PRN PRN PRN Reason: Hypoglycemia Heparin Sodium (Porcine) (Heparin 5,000 Unit/Ml Vial) 5,000 unit SQ Q12 [facility] Last Admin: 09/10/22 08:59 Dose: 5,000 unit Hydralazine HCl (Hydralazine 20 Mg/Ml Vial) 10 mg IV Q4-6HP PRN PRN Reason: Hypertension Last Admin: 09/09/22 18:21 Dose: 10 mg Hydromorphone HCl (Hydromorphone 0.5 Mg/0.5 Ml Syringe) 0.5 mg IV Q4HP PRN; Protocol PRN Reason: Per Pain Protocol Last Admin: 09/10/22 10:23 Dose: 0.5 mg Vancomycin HCl 1,000 mg/ (Sodium Chloride) 250 mls @ 250 mls/hr IV DAILY [facility] Last Admin: 09/10/22 08:59 Dose: 250 mls/hr Meropenem 1 gm/ Sodium (Chloride) 50 mls @ 100 mls/hr IV Q8H [facility] Last Infusion: 09/10/22 06:11 Dose: Infused Insulin Glargine (Insulin Glargine, Human 1 Unit/0.01 Ml) 20 unit SQ HS [facility] Last Admin: 09/09/22 21:15 Dose: 20 unit Insulin Human Lispro (Insulin Lispro 1 Unit/0.01 Ml Unit) 0 unit SQ ACHS [facility]; Protocol Last Admin: 09/10/22 07:11 Dose: Not Given Labetalol HCl (Labetalol 5 Mg/Ml Ml) 10 mg IV Q2HP PRN PRN Reason: Hypertension Lactulose (Lactulose 20 Gm/30 Ml Oral.Carey) 10 gm PO DAILYP PRN PRN Reason: Constipation Lisinopril (Lisinopril 10 Mg Tablet) 10 mg PO DAILY [facility] Last Admin: 09/10/22 08:59 Dose: 10 mg Metoprolol Succinate (Metoprolol Succinate 50 Mg Tab.Xl.24h) 100 mg PO DAILY [facility] Last Admin: 09/10/22 08:58 Dose: 100 mg Morphine Sulfate (Morphine 15 Mg Tab.Sr.12h) 15 mg PO BID [facility]; Protocol Last Admin: 09/10/22 08:59 Dose: 15 mg Nicotine (Nicotine 14 Mg Patch) 14 mg TOPICAL DAILY@1000 [facility] Last Admin: 09/09/22 15:19 Dose: 14 mg Ondansetron HCl (Ondansetron 4 Mg/2 Ml Vial) 4 mg IV Q4HP PRN; Protocol PRN Reason: Nausea And Vomiting Last Admin: 09/09/22 20:00 Dose: 4 mg Oxycodone HCl (Oxycodone Ir 5 Mg Tablet) 10 mg PO Q6HP PRN; Protocol PRN Reason: Per Pain Protocol Last Admin: 09/10/22 07:14 Dose: 10 mg Pantoprazole Sodium (Pantoprazole 40 Mg Tablet) 40 mg PO BIDAC [facility] Last Admin: 09/10/22 07:10 Dose: 40 mg Gabapentin Enacarbil 300 Mg Tablet Extended Release 1 dose PO TID [facility] Last Admin: 09/09/22 21:16 Dose: Not Given Senna (Sennosides 1 Tablet) 2 tab PO HSP PRN PRN Reason: Constipation Last Admin: 09/10/22 08:58 Dose: 2 tab Simethicone (Simethicone 80 Mg Tab.Chew) 80 mg PO QID [facility] Last Admin: 09/10/22 08:59 Dose: 80 mg Sodium Chloride (0.9 % Sodium Chloride 10 Ml Syringe) 10 ml IV Q8 [facility] Last Admin: 09/10/22 06:10 Dose: 10 ml Trazodone HCl (Trazodone Hcl 100 Mg Tablet) 100 mg PO HSP PRN PRN Reason: Insomnia Last Admin: 09/09/22 22:51 Dose: 100 mg Vancomycin HCl (Vancomycin Per Pharmacy) 1 order IV UD [facility]; Protocol A/P Narrative A/P Narrative: Assessment: 41 year old female with a history of multiple comorbidities including Type 1 diabetes mellitus, CKD stage 3, left BKA, recent partial right foot amputation admitted for an infection at the right foot amputation surgical site. MRI showed increased signal in the right distal first and second metatarsal concerning for osteomyelitis. #Right diabetic foot infection at surgical incision wound dehiscence #Concern for osteomyelitis of right distal first and second metatarsal #Type 1 diabetes mellitus #Chronic kidney disease stage III #Chronic anemia, stable #History of left BKA Plan: -Vancomycin IV and Meropenem fo now. -ID consult. -Discontinue IV fluid. -Follow blood cultures. -Monitor renal function. -Check hemoglobin A1c. -Analgesics, avoid NSAIDs. -Lantus 20 units HS and SSI medium dose, lower than home insulin doses. -Continue home amlodipine, aspirin, atorvastatin, buspirone, Cymbalta, lisinopril, Toprol, Protonix, gabapentin, simethicone, trazodone. -DVT prophylaxis: Heparin SQ. -CODE STATUS: Full Plan of Treatment: Plan: Clean RIGHT Foot open wound VASHE Apply Betadine swab to open area and around scar Kerlix gauze and clean sock daily. Agree with IV Vanco and Meropenem at this time. Will be following patient during her hospitalization. Time Spent With Patient Time: Total time spent is greater than 50% in coordination of care (as documented) at patient's floor/unit and/or counseling patient: QUALITY Stroke Symptom Onset Unknown: No VTE Deep Vein Thrombosis/Pulmonary Embolism Present on Admission: No
[2022-09-10] MEDS: NICOTINE 14 MG PATCH TOPICAL SCH (11:00)
[2022-09-10] MEDS: GABAPENTIN ENACARBIL 300 MG PO SCH ×3 (12:10→22:03)
[2022-09-10] MEDS ORDERED: hydrOXYzine 25 MG TABLET PO PRN (13:14)
[2022-09-10] MEDS: GABAPENTIN 300 MG CAPSULE PO SCH ×2 (13:58→22:02)
--- NOTE | 2022-09-10 14:20 | Infectious Disease Consult ---
Telemedicine Intake Consent for assessment and treatment to occur via virtual technology obtained from: Patient Location of Provider: Home Patient location: Intensive Care Unit HPI Date of Consult Consult Date: 09/10/22 Requesting physician: Ruel Garnica Primary Care Provider: PCP No Consult Narrative Chief complaint: Wound infection Reason for consult: Wound infection History of present illness: 41-year-old female with history of diabetes, cirrhosis, methamphetamine abuse from [place] was visiting [place] when she developed an infection of her left foot. Patient underwent TMA and subsequent transfer to SNF to complete antibiotic course on 08/25. However, patient's antibiotic was stopped about a week earlier. She was discharged home. And after she was discharged, she had increasing pain and swelling and redness and came to the emergency room. She was started on meropenem and vancomycin due to her previous allergies to cefepime. By time I saw her she is much better. cc:: CC: Ruel Garnica MD PFSH PFSH All Active Problems Abdominal pain, diffuse (Acute) Anemia (Acute) Cirrhosis (Acute) Hematemesis (Acute) Cellulitis of foot, right (Acute) DKA (diabetic ketoacidosis) (Acute) Migraine headache (Acute) Stage 1 acute kidney injury (Acute) DKA (diabetic ketoacidosis) (Acute) Elevated brain natriuretic peptide (BNP) level (Acute) Edema of face (Acute) SOB (shortness of breath) (Acute) Anasarca (Acute) Methamphetamine abuse (Acute) Acute on chronic kidney failure (Acute) DKA, type 2 (Acute) Cirrhosis of liver (Acute) Anemia (Acute) Hyperglycemia due to type 2 diabetes mellitus (Acute) Abdominal pain (Acute) Social History smoking status: Current every day smoker smoking status start date: 03/01/91 MEDS/ALLERGIES Home Medications and Allergies Home Medications Medication Instructions Recorded Confirmed Type aspirin-sodium bicarbonate-citric 324 mg PO QDAY 04/22/22 09/09/22 History acid 324 mg effervescent tablet naloxone 4 mg/actuation nasal spray 4 mg intranasal Q2M PRN Opioid 04/22/22 09/09/22 History Overdose pantoprazole 40 mg PO BID 04/22/22 09/09/22 History promethazine 25 mg tablet 25 mg PO Q6H PRN Nausea 04/22/22 09/09/22 History trazodone 100 mg PO HS PRN Insomnia 04/22/22 09/09/22 History albuterol sulfate 90 mcg/actuation 2 puff inhalation Q6H PRN 06/20/22 09/09/22 History aerosol inhaler Shortness Of Breath insulin glargine 100 unit/mL (3 38 unit subcut QAM 06/20/22 09/09/22 History mL) subcutaneous pen Bacillus coagulans-inulin 1 1 cap PO DAILY 06/21/22 09/09/22 History billion cell-250 mg capsule atorvastatin 80 mg tablet 80 mg PO QDAY 06/21/22 09/09/22 History buspirone 5 mg tablet 10 mg PO BID 06/21/22 09/09/22 History insulin lispro 100 unit/mL 7 unit subcut AC 06/21/22 09/09/22 History subcutaneous pen lisinopril 10 mg tablet 10 mg PO QAM 06/21/22 09/09/22 History acetaminophen 500 mg tablet 500 mg PO Q4HP PRN Pain 09/09/22 09/09/22 History amlodipine 5 mg tablet 5 mg PO BID 09/09/22 09/09/22 History cholecalciferol (vitamin D3) 125 125 mcg PO QDAY 09/09/22 09/09/22 History mcg (5,000 unit) tablet duloxetine 30 mg capsule,delayed 30 mg PO QDAY 09/09/22 09/09/22 History release sprinkle hydrocodone 5 mg-acetaminophen 325 1 tab PO Q6H PRN Pain 09/09/22 09/09/22 History mg tablet metoclopramide HCl 5 mg tablet 5 mg PO ACHS PRN Nausea 09/09/22 09/09/22 History metoprolol succinate 100 mg 100 mg PO BID 09/09/22 09/09/22 History tablet,extended release 24 hr simethicone 80 mg chewable tablet 80 mg PO QID 09/09/22 09/09/22 History gabapentin 300 mg capsule 300 mg PO TID 09/10/22 09/10/22 History Allergies Allergy/AdvReac Type Severity Reaction Status Date / Time cefepime Allergy Severe Swelling Verified 09/09/22 01:25 of Lip/Tongue/Throat peanut Allergy Mild Rash Verified 09/09/22 08:47 Physical Examination Vital Signs Vital signs: Temp Pulse Resp BP Pulse Ox O2 Del Method 97 F 76 18 111/92 99 Room Air 09/10/22 12:02 09/10/22 12:39 09/10/22 13:33 09/10/22 12:02 09/10/22 12:39 09/10/22 08:00 Constitutional General appearance: no acute distress and alert Extremities Extremities: other (The right foot TMA has a small open wound with and without any erythema. There is still residual edema) Results Laboratory Findings 09/10/22 05:38 09/10/22 05:39 Abnormal lab findings: Abnormal Labs 09/08/22 09/08/22 09/08/22 16:32 16:32 16:32 RBC 3.36 L Hgb 9.5 L Hct 29.3 L POC Hct ESR 97 H POC VBG pCO2 at Temp POC VBG pO2 POC VBG HCO3 POC VBG Total CO2 POC Venous O2 Sat POC VBG Base Excess POC Sodium Sodium Chloride Carbon Dioxide POC Total CO2 Anion Gap POC BUN BUN Creatinine POC Creatinine Glucose POC Glucose Calcium Magnesium GGT Alkaline Phosphatase 190 H Lactate Dehydrogenase C-Reactive Protein 1.10 H Total Protein Albumin 2.7 L Globulin 4.1 H Albumin/Globulin Ratio Triglycerides Beta-Hydroxybutyrate 0.81 H Procalcitonin 0.13 H 09/08/22 09/08/22 09/09/22 16:36 16:40 05:47 RBC 2.67 L Hgb 7.6 L Hct 24.4 L POC Hct 31.0 L ESR POC VBG pCO2 at Temp 27.9 L POC VBG pO2 44 H POC VBG HCO3 16.3 L POC VBG Total CO2 17.0 L POC Venous O2 Sat 80.0 H POC VBG Base Excess -9.0 L POC Sodium 130 L Sodium Chloride Carbon Dioxide POC Total CO2 19.0 L Anion Gap POC BUN 31 H BUN Creatinine POC Creatinine 1.7 H Glucose POC Glucose 603 H* Calcium Magnesium GGT Alkaline Phosphatase Lactate Dehydrogenase C-Reactive Protein Total Protein Albumin Globulin Albumin/Globulin Ratio Triglycerides Beta-Hydroxybutyrate Procalcitonin 09/09/22 09/10/22 09/10/22 05:47 05:38 05:39 RBC 2.97 L Hgb 8.4 L Hct 27.1 L POC Hct ESR POC VBG pCO2 at Temp POC VBG pO2 POC VBG HCO3 POC VBG Total CO2 POC Venous O2 Sat POC VBG Base Excess POC Sodium Sodium 131 L Chloride 110 H Carbon Dioxide 17 L 17 L POC Total CO2 Anion Gap 7.0 L POC BUN BUN 29 H 30 H Creatinine 1.6 H 1.7 H POC Creatinine Glucose 290 H 115 H POC Glucose Calcium 8.1 L 8.3 L Magnesium 1.5 L GGT 95 H 101 H Alkaline Phosphatase 160 H 155 H Lactate Dehydrogenase 273 H 313 H C-Reactive Protein Total Protein 5.5 L Albumin 2.3 L 2.3 L Globulin Albumin/Globulin Ratio 0.7 L 0.6 L Triglycerides 211 H 266 H Beta-Hydroxybutyrate Procalcitonin Microbiology: Microbiology 09/08/22 16:40 Blood Blood Culture - Preliminary 09/08/22 16:32 Blood Blood Culture - Preliminary 09/08/22 17:19 Foot - Right Gram Stain - Preliminary 09/08/22 17:19 Foot - Right Wound Culture - Preliminary Gram negative bacillus Gram negative bacillus#2 A/P Assessment and plan (1) Cellulitis of foot, right: Status: Acute Plan Patient with cellulitis of the foot that has recently had TMA. MRI showed osteomyelitis across body metatarsal, suspect this is residual surgical changes. Patient has gram-negative rods growing from the wound. We will discontinue vancomycin and continue patient on meropenem. Follow-up on the culture results and de-escalate to quinolone if possible so the patient can go home to [place] and complete her care there. Narrative Plan of Treatment: Plan: Clean RIGHT Foot open wound VASHE Apply Betadine swab to open area and around scar Kerlix gauze and clean sock daily. Agree with IV Vanco and Meropenem at this time. Will be following patient during her hospitalization. Time Spent With Patient Time: Total time spent is greater than 50% in coordination of care (as documented) at patient's floor/unit and/or counseling patient:
--- NOTE | 2022-09-10 15:58 | General Surgery Progress Note ---
SUBJECTIVE Subjective Patient information: Note initiated : 09/10/22 at 3:54 pm Service Date, if different from initiated Date: [] Patient: Rebekah Angulo 41 y/o F admitted on 09/08/22. Chief Complaint: [] Additional PMFSH (Level 3 Only): I saw patient with Twila RN this morning. Progress noted. Subsequently reviewed notes of Dr. Garnica Hospitalist and Dr. Melissa VANEGAS Infectious Disease specialist. Constitutional Vitals: Vital Signs Temp Pulse Resp BP Pulse Ox O2 Del Method 97.0 F 76 16 132/88 100 Room Air 09/10/22 15:00 09/10/22 15:00 09/10/22 15:00 09/10/22 15:00 09/10/22 15:00 09/10/22 15:00 Period Temp Pulse Resp BP Sys/Ding Pulse Ox O2 Del Method O2 Flow Rate Last 24 Hr 97 F-97.9 F 73-80 12-21 111-181/80-120 96-100 Room Air-Room Air Intake and Output 09/10/22 09/10/22 09/10/22 03:59 11:59 19:59 Intake Total 290 972 50 Output Total 400 920 Balance -110 52 50 Weight 170 lb 3.2 oz Intake & Output: Intake & Output 09/10/22 09/10/22 09/10/22 03:59 11:59 19:59 Intake Total 290 972 50 Output Total 400 920 Balance -110 52 50 Weight 170 lb 3.2 oz Intake: IV 50 300 50 Merrem 1 gm In Sodium Chloride 50 50 50 0.9% 50 ml @ 100 mls/hr IV Q8H [facility] Rx#:[id number] Vancomycin 1,000 mg In Sodium 250 Chloride 0.9% 250 ml @ 250 mls/ hr IV DAILY [facility] Rx#:[id number] Oral 240 672 Output: Void Amount 400 920 Other: Meal String cheese, pudding Breakfast Percent of Meal Consumed 100% Urine Appearance Clear Clear Urine Color Bright Yellow Yellow Urine Odor Normal Exam: AVSS. ROC no interval changes. L/E: Surgical wound site RIGHT forefoot TMA is improving Resolving cellulitis. Open wound site is stable. MRI RIGHT forefoot : Post surgical changes vs residual osteomyelitis. A/P Narrative A/P Narrative: Assessment: Reviewed recommendations from Dr. Torres. Vancomycin to be d/cd. IV Meropenem to be continued Plan of Treatment: Plan: Clean RIGHT Foot open wound VASHE Apply Betadine swab to open area and around scar Kerlix gauze and clean sock daily. Will be following patient during her hospitalization. Time Spent With Patient Time: Total time spent is greater than 50% in coordination of care (as documented) at patient's floor/unit and/or counseling patient: Initial: Total time with patient: Less than 40 minutes
[2022-09-10] MEDS: ONDANSETRON 4 MG/2 ML VIAL IV PRN (22:00)
[2022-09-10] MEDS: METOPROLOL SUCCINATE 50 MG TAB.XL.24H PO SCH (22:01)
[2022-09-10] MEDS: ATORVASTATIN 40 MG TABLET PO SCH (22:02)
[2022-09-10] MEDS: traZODone HCL 100 MG TABLET PO PRN (22:02)
[2022-09-10] MEDS: INSULIN GLARGINE, HUMAN 1 UNIT/0.01 ML SQ SCH (22:23)
[2022-09-11] MEDS: HYDROmorphone 0.5 MG/0.5 ML SYRINGE IV PRN ×8 (01:25→21:39)
[2022-09-11] MEDS: ACETAMINOPHEN 325 MG TABLET PO PRN ×3 (02:09→14:14)
[2022-09-11] MEDS: oxyCODONE IR 5 MG TABLET PO PRN ×3 (02:09→14:14)
[2022-09-11] MEDS: MEROPENEM 1 GM in 0.9 % SODIUM CHLORIDE 50 ML IV SCH ×3 (06:00→22:45)
[2022-09-11] MEDS: 0.9 % SODIUM CHLORIDE 10 ML SYRINGE IV SCH ×3 (06:04→21:41)
[2022-09-11 06:28] LABS: Basophils # (Auto) 0.04 K/mcL (0.00-0.30); Basophils % (Auto) 0.9 % (0.0-2.0); Eosinophils # (Auto) 0.16 K/mcL (0.00-0.70); Eosinophils % (Auto) 3.5 % (0.0-7.0); Hematocrit 25.7 % (34.1-44.9); Hemoglobin 7.9 g/dL (11.2-15.7); Lymphocytes # (Auto) 1.21 K/mcL (1.50-4.80); Lymphocytes % (Auto) 26.4 % (15.5-49.0); Mean Cell Volume 91.1 fL (80.0-100.0); Mean Corpuscular HGB Conc 30.7 g/dL (31.0-36.0); Mean Platelet Volume 11.1 fL (8.8-12.5); Monocytes # (Auto) 0.46 K/mcL (0.10-0.90); Platelet Count 191 K/mcL (140-440); RBC 2.82 M/mcL (3.59-5.38); Red Cell Distribution Width 14.4 % (11.5-14.5); WBC 4.6 K/mcL (4.5-11.0)
[2022-09-11] MEDS: PANTOPRAZOLE 40 MG TABLET PO SCH ×2 (06:41→17:13)
[2022-09-11] MEDS: diphenhydrAMINE 50 MG/ML VIAL IV PRN ×2 (06:41→18:51)
[2022-09-11 06:43] LABS: Estimated Average Glucose(eAG) 240 mg/dL
[2022-09-11] MEDS: INSULIN LISPRO 1 UNIT/0.01 ML UNIT SQ SCH ×4 (08:01→21:57)
[2022-09-11] MEDS: morphine 15 MG TAB.SR.12H PO SCH ×2 (08:02→21:39)
[2022-09-11] MEDS: HEPARIN 5,000 UNIT/ML VIAL SQ SCH ×2 (08:02→21:41)
[2022-09-11] MEDS: GABAPENTIN 300 MG CAPSULE PO SCH ×3 (08:03→21:39)
[2022-09-11] MEDS: DULoxetine 30 MG CAPSULE PO SCH (08:03)
[2022-09-11] MEDS: amLODIPine 5 MG TABLET PO SCH ×2 (08:03→21:38)
[2022-09-11] MEDS: METOPROLOL SUCCINATE 50 MG TAB.XL.24H PO SCH ×2 (08:04→21:39)
[2022-09-11] MEDS: LISINOPRIL 10 MG TABLET PO SCH (08:05)
[2022-09-11] MEDS: busPIRone 5 MG TABLET PO SCH ×2 (08:05→21:39)
[2022-09-11] MEDS: ASPIRIN 325 MG ENTERIC COATED TABLET PO SCH (08:05)
[2022-09-11] MEDS: SIMETHICONE 80 MG TAB.CHEW PO SCH ×4 (08:05→21:38)
[2022-09-11] MEDS: DOCUSATE SODIUM 100 MG CAPSULE PO SCH ×2 (08:06→23:13)
[2022-09-11] MEDS: GABAPENTIN ENACARBIL 300 MG PO SCH ×3 (09:09→23:13)
[2022-09-11] MEDS: ONDANSETRON 4 MG/2 ML VIAL IV PRN ×2 (09:10→22:58)
--- NOTE | 2022-09-11 09:26 | Internal Med Progress Note ---
SUBJECTIVE Subjective Patient information: Note initiated : 09/11/22 at 9:18 am Service Date, if different from initiated Date: [] Patient: Rebekah Angulo 41 y/o F admitted on 09/08/22. Chief Complaint: [] Interval history: Ms. Angulo is a 41-year-old female with a history of type 1 diabetes mellitus, diabetic infections requiring lower extremity amputations, chronic kidney disease stage III, history of substance use disorder presented to the ED with concerns for a right foot infection at the site of prior partial foot amputation. The patient says that she had her foot partially amputated in [place], [facility] it was at [facility] [place], [place]. The patient was then discharged to a senior living facility in [place], [place] and recently discharged to home. Recently there has been purulence and pain from a dehisced area at the surgical site on her right foot. In the emergency department, the patient was afebrile and vitals were normal except for moderate hypertension. There is no leukocytosis, hemoglobin was 9.5 which was higher than her baseline. Sodium level was 130, renal function was at her baseline. [id number]-[id number] glucose check was initially 603 and improved to 290 in the ED. An x-ray of the right foot did not show any evidence of bone changes that would be concerning for osteomyelitis. Procalcitonin level was 0.13. CRP level was 1.1. The patient was given vancomycin IV and Zosyn. Hospital medicine asked to admit the patient. 09/10. Vital stable overnight. The patient is on a vancomycin IV and meropenem. Avoiding combination of vancomycin and Zosyn due to CKD and risk for acute kidney injury. Right foot superficial wound cultures growing gram-negative bacilli. Blood cultures showing no growth to date. MRI right foot without contrast showed severe cellulitis in the midfoot and first and second metatarsal regions. There was increased intramedullary signal within the distal aspects of the first and second metatarsals concerning for osteomyelitis. Infectious disease consulted. 09/11. Vital stable overnight, afebrile. Satisfactory glycemic control. Infectious disease evaluated the patient yesterday, felt that the MRI scan results represented residual surgical changes. Wound culture grew Enterobacter cloacae sensitive levofloxacin and a gram-negative bacillus is still pending identification and antibiotic sensitivities. Infectious disease felt that if the gram-negative bacillus was sensitive to levofloxacin and the patient could discharge on oral levofloxacin. For now, the patient continues on meropenem until final culture results. Vancomycin IV discontinued. Dr. Harper saw the patient today, felt that wound cares were going well. The patient can follow-up at [facility] wound care clinic or at her hometown in [place] if she decides to leave the area after hospital discharge. Physical exam Head: Atraumatic, normal inspection. Eyes: normal appearance, no scleral icterus. Neck: full ROM Respiratory: no respiratory distress. Cardiovascular: normal rate and rhythm, S1, S2. GI/Abdominal: soft, nontender, no guarding. Extremities: Right foot wound covered in clean bandage. Neurological: CN II-XII intact, intact motor Constitutional Vitals: Vital Signs Temp Pulse Resp BP Pulse Ox O2 Del Method 98.6 F 85 16 134/78 100 Room Air 09/11/22 08:00 09/11/22 08:00 09/11/22 08:00 09/11/22 08:00 09/11/22 08:00 09/11/22 08:00 Period Temp Pulse Resp BP Sys/Ding Pulse Ox O2 Del Method O2 Flow Rate Last 24 Hr 97 F-98.6 F 73-85 13-20 111-150/78-92 97-100 Room Air-Room Air Intake and Output 09/10/22 09/11/22 09/11/22 19:59 03:59 11:59 Intake Total 730 650 50 Balance 730 650 50 Weight 78.381 kg Intake & Output: Intake & Output 09/10/22 09/11/22 09/11/22 19:59 03:59 11:59 Intake Total 730 650 50 Balance 730 650 50 Weight 78.381 kg Intake: IV 50 50 50 Merrem 1 gm In Sodium Chloride 50 50 50 0.9% 50 ml @ 100 mls/hr IV Q8H [facility] Rx#:[id number] Oral 680 600 Other: Meal Lunch crackers Percent of Meal Consumed 100% 100% Feeding Ability Independent Urine Appearance Clear Urine Color Yellow Stool Size Moderate Stool Color Yellow Stool Consistency Watery Loose # Voids 1 1 # Bowel Movements 1 OBJ DATA Labs 09/11/22 05:15 09/10/22 05:39 Labs: Abnormal Lab Results 09/11/22 09/11/22 09/10/22 05:15 05:10 05:39 RBC 2.82 L Hgb 7.9 L Hct 25.7 L POC Hct MCHC 30.7 L Lymph # (Auto) 1.21 L ESR POC VBG pCO2 at Temp POC VBG pO2 POC VBG HCO3 POC VBG Total CO2 POC Venous O2 Sat POC VBG Base Excess POC Sodium Sodium Chloride 110 H Carbon Dioxide 17 L POC Total CO2 Anion Gap 7.0 L POC BUN BUN 30 H Creatinine 1.7 H POC Creatinine Glucose 115 H POC Glucose Hemoglobin A1c 10.0 H Calcium 8.3 L Magnesium GGT 101 H Alkaline Phosphatase 155 H Lactate Dehydrogenase 313 H C-Reactive Protein Total Protein Albumin 2.3 L Globulin Albumin/Globulin Ratio 0.6 L Triglycerides 266 H Beta-Hydroxybutyrate Procalcitonin 09/10/22 09/09/22 09/09/22 05:38 05:47 05:47 RBC 2.97 L 2.67 L Hgb 8.4 L 7.6 L Hct 27.1 L 24.4 L POC Hct MCHC Lymph # (Auto) ESR POC VBG pCO2 at Temp POC VBG pO2 POC VBG HCO3 POC VBG Total CO2 POC Venous O2 Sat POC VBG Base Excess POC Sodium Sodium 131 L Chloride Carbon Dioxide 17 L POC Total CO2 Anion Gap POC BUN BUN 29 H Creatinine 1.6 H POC Creatinine Glucose 290 H POC Glucose Hemoglobin A1c Calcium 8.1 L Magnesium 1.5 L GGT 95 H Alkaline Phosphatase 160 H Lactate Dehydrogenase 273 H C-Reactive Protein Total Protein 5.5 L Albumin 2.3 L Globulin Albumin/Globulin Ratio 0.7 L Triglycerides 211 H Beta-Hydroxybutyrate Procalcitonin 09/08/22 09/08/22 09/08/22 16:40 16:36 16:32 RBC Hgb Hct POC Hct 31.0 L MCHC Lymph # (Auto) ESR POC VBG pCO2 at Temp 27.9 L POC VBG pO2 44 H POC VBG HCO3 16.3 L POC VBG Total CO2 17.0 L POC Venous O2 Sat 80.0 H POC VBG Base Excess -9.0 L POC Sodium 130 L Sodium Chloride Carbon Dioxide POC Total CO2 19.0 L Anion Gap POC BUN 31 H BUN Creatinine POC Creatinine 1.7 H Glucose POC Glucose 603 H* Hemoglobin A1c Calcium Magnesium GGT Alkaline Phosphatase Lactate Dehydrogenase C-Reactive Protein Total Protein Albumin Globulin Albumin/Globulin Ratio Triglycerides Beta-Hydroxybutyrate Procalcitonin 0.13 H 09/08/22 09/08/22 16:32 16:32 RBC 3.36 L Hgb 9.5 L Hct 29.3 L POC Hct MCHC Lymph # (Auto) ESR 97 H POC VBG pCO2 at Temp POC VBG pO2 POC VBG HCO3 POC VBG Total CO2 POC Venous O2 Sat POC VBG Base Excess POC Sodium Sodium Chloride Carbon Dioxide POC Total CO2 Anion Gap POC BUN BUN Creatinine POC Creatinine Glucose POC Glucose Hemoglobin A1c Calcium Magnesium GGT Alkaline Phosphatase 190 H Lactate Dehydrogenase C-Reactive Protein 1.10 H Total Protein Albumin 2.7 L Globulin 4.1 H Albumin/Globulin Ratio Triglycerides Beta-Hydroxybutyrate 0.81 H Procalcitonin Meds: Medications Acetaminophen (Acetaminophen 325 Mg Tablet) 325 mg PO Q6HP PRN; Protocol PRN Reason: Per Pain Protocol/Fever > 101 Last Admin: 09/11/22 08:04 Dose: 325 mg Albuterol Sulfate (Albuterol Sulfate 2.5 Mg/3 Ml Nebulizer) 2.5 mg NEB Q2HP PRN PRN Reason: Shortness Of Breath Amlodipine Besylate (Amlodipine 5 Mg Tablet) 5 mg PO BID [facility] Last Admin: 09/11/22 08:03 Dose: 5 mg Aspirin (Aspirin 325 Mg Enteric Coated Tablet) 325 mg PO DAILY [facility] Last Admin: 09/11/22 08:05 Dose: 325 mg Atorvastatin Calcium (Atorvastatin 40 Mg Tablet) 80 mg PO HS [facility] Last Admin: 09/10/22 22:02 Dose: 80 mg Buspirone HCl (Buspirone 5 Mg Tablet) 10 mg PO BID [facility] Last Admin: 09/11/22 08:05 Dose: 10 mg Dextrose (Dextrose 50% 50 Ml Vial) 0 ml IV UD PRN PRN Reason: Per Sliding Scale Diagnostic Test (Pha) (Accu-Chek 1 Each Strip) 1 each FS ACHS [facility] Last Admin: 09/11/22 06:41 Dose: 1 each Diphenhydramine HCl (Diphenhydramine 50 Mg/Ml Vial) 25 mg IV Q4HP PRN PRN Reason: Itching Last Admin: 09/11/22 06:41 Dose: 25 mg Docusate Sodium (Docusate Sodium 100 Mg Capsule) 100 mg PO BID [facility] Last Admin: 09/11/22 08:06 Dose: 100 mg Duloxetine HCl (Duloxetine 30 Mg Capsule) 30 mg PO DAILY [facility] Last Admin: 09/11/22 08:03 Dose: 30 mg Gabapentin (Gabapentin 300 Mg Capsule) 300 mg PO TID [facility] Last Admin: 09/11/22 08:03 Dose: 300 mg Glucose (Dextrose 31 Gm Oral.Susp) 15 gm PO PRN PRN PRN Reason: Hypoglycemia Heparin Sodium (Porcine) (Heparin 5,000 Unit/Ml Vial) 5,000 unit SQ Q12 [facility] Last Admin: 09/11/22 08:02 Dose: 5,000 unit Hydralazine HCl (Hydralazine 20 Mg/Ml Vial) 10 mg IV Q4-6HP PRN PRN Reason: Hypertension Last Admin: 09/09/22 18:21 Dose: 10 mg Hydromorphone HCl (Hydromorphone 0.5 Mg/0.5 Ml Syringe) 0.5 mg IV Q2HP PRN; Protocol PRN Reason: Per Pain Protocol Last Admin: 09/11/22 06:12 Dose: 0.5 mg Hydroxyzine HCl (Hydroxyzine 25 Mg Tablet) 25 mg PO TIDP PRN PRN Reason: Allergic Symptoms Last Admin: 09/10/22 13:26 Dose: 25 mg Meropenem 1 gm/ Sodium (Chloride) 50 mls @ 100 mls/hr IV Q8H [facility] Last Infusion: 09/11/22 06:52 Dose: Infused Insulin Glargine (Insulin Glargine, Human 1 Unit/0.01 Ml) 20 unit SQ HS [facility] Last Admin: 09/10/22 22:23 Dose: 20 unit Insulin Human Lispro (Insulin Lispro 1 Unit/0.01 Ml Unit) 0 unit SQ ACHS [facility]; Protocol Last Admin: 09/11/22 08:01 Dose: 4 unit Labetalol HCl (Labetalol 5 Mg/Ml Ml) 10 mg IV Q2HP PRN PRN Reason: Hypertension Lactulose (Lactulose 20 Gm/30 Ml Oral.Carey) 10 gm PO DAILYP PRN PRN Reason: Constipation Lidocaine (Lidocaine Patch) 1 patch TOPICAL DAILY@1000 [facility] Lisinopril (Lisinopril 10 Mg Tablet) 10 mg PO DAILY [facility] Last Admin: 09/11/22 08:05 Dose: 10 mg Methocarbamol (Methocarbamol 500 Mg Tablet) 500 mg PO TIDP PRN PRN Reason: Muscle Spasm Metoprolol Succinate (Metoprolol Succinate 50 Mg Tab.Xl.24h) 100 mg PO BID [facility] Last Admin: 09/11/22 08:04 Dose: 100 mg Morphine Sulfate (Morphine 15 Mg Tab.Sr.12h) 15 mg PO BID [facility]; Protocol Last Admin: 09/11/22 08:02 Dose: 15 mg Nicotine (Nicotine 14 Mg Patch) 14 mg TOPICAL DAILY@1000 [facility] Last Admin: 09/10/22 11:00 Dose: 14 mg Ondansetron HCl (Ondansetron 4 Mg/2 Ml Vial) 4 mg IV Q4HP PRN; Protocol PRN Reason: Nausea And Vomiting Last Admin: 09/11/22 09:10 Dose: 4 mg Oxycodone HCl (Oxycodone Ir 5 Mg Tablet) 10 mg PO Q6HP PRN; Protocol PRN Reason: Per Pain Protocol Last Admin: 09/11/22 08:02 Dose: 10 mg Pantoprazole Sodium (Pantoprazole 40 Mg Tablet) 40 mg PO BIDAC [facility] Last Admin: 09/11/22 06:41 Dose: 40 mg Gabapentin Enacarbil 300 Mg Tablet Extended Release 1 dose PO TID [facility] Last Admin: 09/11/22 09:09 Dose: Not Given Senna (Sennosides 1 Tablet) 2 tab PO HSP PRN PRN Reason: Constipation Last Admin: 09/10/22 08:58 Dose: 2 tab Simethicone (Simethicone 80 Mg Tab.Chew) 80 mg PO QID [facility] Last Admin: 09/11/22 08:05 Dose: 80 mg Sodium Chloride (0.9 % Sodium Chloride 10 Ml Syringe) 10 ml IV Q8 [facility] Last Admin: 09/11/22 06:04 Dose: 10 ml Trazodone HCl (Trazodone Hcl 100 Mg Tablet) 100 mg PO HSP PRN PRN Reason: Insomnia Last Admin: 09/10/22 22:02 Dose: 100 mg A/P Narrative A/P Narrative: Assessment: 41 year old female with a history of multiple comorbidities including Type 1 diabetes mellitus, CKD stage 3, left BKA, recent partial right foot amputation admitted for an infection at the right foot amputation surgical site. MRI showed increased signal in the right distal first and second metatarsal concerning for osteomyelitis. #Right diabetic foot infection at surgical incision wound dehiscence #Concern for osteomyelitis of right distal first and second metatarsal #Type 1 diabetes mellitus, hemoglobin A1c 10.0 #Chronic kidney disease stage III #Chronic anemia, stable #History of left BKA Plan: -Continue meropenem pending final wound cultures. -Vancomycin IV discontinued. -Follow wound care culture results. -ID was consulted, following wound culture results, possibly de-escalate to quinolone if possible. -Follow blood cultures: NGTD. -Monitor hemoglobin and renal function. -Analgesics, avoid NSAIDs. -Added baclofen as needed for muscle spasms. -Lantus 20 units HS and SSI medium dose. -Continue home amlodipine, aspirin, atorvastatin, buspirone, Cymbalta, lisinopril, Toprol, Protonix, gabapentin, simethicone, trazodone. -DVT prophylaxis: Heparin SQ. -CODE STATUS: Full -Disposition: Inpatient MedSurg, awaiting culture results and depending on that may be able to transition to quinolone to complete antibiotic treatment. Recommend the patient follow-up with endocrinology after discharge to discuss an insulin pump and continuous glucose sensor which would probably improve glycemic control. Plan of Treatment: Plan: Clean RIGHT Foot open wound VASHE Apply Betadine swab to open area and around scar Kerlix gauze and clean sock daily. Will be following patient during her hospitalization. Time Spent With Patient Time: Total time spent is greater than 50% in coordination of care (as documented) at patient's floor/unit and/or counseling patient: QUALITY Stroke Symptom Onset Unknown: No VTE Deep Vein Thrombosis/Pulmonary Embolism Present on Admission: No
[2022-09-11] MEDS ORDERED: LIDOCAINE PATCH TOPICAL SCH (10:00)
[2022-09-11] MEDS: METHOCARBAMOL 500 MG TABLET PO PRN ×2 (10:09→16:03)
[2022-09-11] MEDS: NICOTINE 14 MG PATCH TOPICAL SCH (10:32)
--- NOTE | 2022-09-11 11:34 | Infectious Disease Prog Note ---
Telemedicine Intake Start Time: 11:20 End Time: 11:33 Consent for assessment and treatment to occur via virtual technology obtained from: Patient Location of Provider: Provider Clinic SUBJECTIVE Subjective Patient information: Note initiated : 09/11/22 at 11:33 am Service Date, if different from initiated Date: [] Patient: Rebekah Angulo 41 y/o F admitted on 09/08/22. Chief Complaint: [] Interval history: Still has pain in the foot but improving After the vancomycin was discontinued, patient feels better with her itching that she's had before. No further itching at this time. Constitutional Vitals: Vital Signs Temp Pulse Resp BP Pulse Ox O2 Del Method 98.6 F 85 16 134/78 100 Room Air 09/11/22 08:00 09/11/22 08:00 09/11/22 08:00 09/11/22 08:00 09/11/22 08:00 09/11/22 08:00 Period Temp Pulse Resp BP Sys/Ding Pulse Ox O2 Del Method O2 Flow Rate Last 24 Hr 97 F-98.6 F 73-85 14-20 111-150/78-92 98-100 Room Air-Room Air Intake and Output 09/10/22 09/11/22 09/11/22 19:59 03:59 11:59 Intake Total 730 650 50 Balance 730 650 50 Weight 78.381 kg Intake & Output: Intake & Output 09/10/22 09/11/22 09/11/22 19:59 03:59 11:59 Intake Total 730 650 50 Balance 730 650 50 Weight 78.381 kg Intake: IV 50 50 50 Merrem 1 gm In Sodium Chloride 50 50 50 0.9% 50 ml @ 100 mls/hr IV Q8H [facility] Rx#:[id number] Oral 680 600 Other: Meal Lunch crackers Percent of Meal Consumed 100% 100% Feeding Ability Independent Urine Appearance Clear Urine Color Yellow Stool Size Moderate Stool Color Yellow Stool Consistency Watery Loose # Voids 1 1 # Bowel Movements 1 Head Head exam: Present atraumatic Neck Neck exam: Present full ROM Respiratory Respiratory exam: Absent respiratory distress Expanded Lower Extremity Exam Foot/Toe exam: Present amputation (Right TMA stump with open ulcer, line drawn at site of cellulitis and erythema now resolved, mild serous drainage no pus, much improved since yesterday) A/P Assessment and plan (1) Cellulitis of foot, right: Assessment and plan: Cultures with MSSA (not properly reported, discussed with micro and will have results faxed over to be scanned in chart), Enterobacter and Klebsiella. Much improved today compared to yesterday of her erythema Plan: Continue Meropenem When ready for discharge, can switch to Levofloxacin which would target all organisms Can plan for a 14 day course total Follow up with ID as needed Will continue to follow inpatient Status: Acute Time Spent With Patient Time: Total time spent is greater than 50% in coordination of care (as documented) at patient's floor/unit and/or counseling patient: Subsequent: Total time with patient: 25 - 34 minutes MEDS/ALLERGIES Home Medications and Allergies Home Medications Medication Instructions Recorded Confirmed Type aspirin-sodium bicarbonate-citric 324 mg PO QDAY 04/22/22 09/09/22 History acid 324 mg effervescent tablet naloxone 4 mg/actuation nasal spray 4 mg intranasal Q2M PRN Opioid 04/22/22 09/09/22 History Overdose pantoprazole 40 mg PO BID 04/22/22 09/09/22 History promethazine 25 mg tablet 25 mg PO Q6H PRN Nausea 04/22/22 09/09/22 History trazodone 100 mg PO HS PRN Insomnia 04/22/22 09/09/22 History albuterol sulfate 90 mcg/actuation 2 puff inhalation Q6H PRN 06/20/22 09/09/22 History aerosol inhaler Shortness Of Breath insulin glargine 100 unit/mL (3 38 unit subcut QAM 06/20/22 09/09/22 History mL) subcutaneous pen Bacillus coagulans-inulin 1 1 cap PO DAILY 06/21/22 09/09/22 History billion cell-250 mg capsule atorvastatin 80 mg tablet 80 mg PO QDAY 06/21/22 09/09/22 History buspirone 5 mg tablet 10 mg PO BID 06/21/22 09/09/22 History insulin lispro 100 unit/mL 7 unit subcut AC 06/21/22 09/09/22 History subcutaneous pen lisinopril 10 mg tablet 10 mg PO QAM 06/21/22 09/09/22 History acetaminophen 500 mg tablet 500 mg PO Q4HP PRN Pain 09/09/22 09/09/22 History amlodipine 5 mg tablet 5 mg PO BID 09/09/22 09/09/22 History cholecalciferol (vitamin D3) 125 125 mcg PO QDAY 09/09/22 09/09/22 History mcg (5,000 unit) tablet duloxetine 30 mg capsule,delayed 30 mg PO QDAY 09/09/22 09/09/22 History release sprinkle hydrocodone 5 mg-acetaminophen 325 1 tab PO Q6H PRN Pain 09/09/22 09/09/22 History mg tablet metoclopramide HCl 5 mg tablet 5 mg PO ACHS PRN Nausea 09/09/22 09/09/22 History metoprolol succinate 100 mg 100 mg PO BID 09/09/22 09/09/22 History tablet,extended release 24 hr simethicone 80 mg chewable tablet 80 mg PO QID 09/09/22 09/09/22 History gabapentin 300 mg capsule 300 mg PO TID 09/10/22 09/10/22 History Allergies Allergy/AdvReac Type Severity Reaction Status Date / Time cefepime Allergy Severe Swelling Verified 09/09/22 01:25 of Lip/Tongue/Throat peanut Allergy Mild Rash Verified 09/09/22 08:47
--- NOTE | 2022-09-11 12:00 | General Surgery Progress Note ---
SUBJECTIVE Subjective Patient information: Note initiated : 09/11/22 at 11:56 am Service Date, if different from initiated Date: [] Patient: Rebekah Angulo 41 y/o F admitted on 09/08/22. Chief Complaint: [] Additional PMFSH (Level 3 Only): Patient is out of ICU. Saw her along with Amy RAPP in room 132. Constitutional Vitals: Vital Signs Temp Pulse Resp BP Pulse Ox O2 Del Method 98.6 F 85 16 134/78 100 Room Air 09/11/22 08:00 09/11/22 08:00 09/11/22 08:00 09/11/22 08:00 09/11/22 08:00 09/11/22 08:00 Period Temp Pulse Resp BP Sys/Ding Pulse Ox O2 Del Method O2 Flow Rate Last 24 Hr 97 F-98.6 F 73-85 14-20 111-150/78-92 98-100 Room Air-Room Air Intake and Output 09/10/22 09/11/22 09/11/22 19:59 03:59 11:59 Intake Total 730 650 50 Balance 730 650 50 Weight 172 lb 12.8 oz Intake & Output: Intake & Output 09/10/22 09/11/22 09/11/22 19:59 03:59 11:59 Intake Total 730 650 50 Balance 730 650 50 Weight 172 lb 12.8 oz Intake: IV 50 50 50 Merrem 1 gm In Sodium Chloride 50 50 50 0.9% 50 ml @ 100 mls/hr IV Q8H [facility] Rx#:[id number] Oral 680 600 Other: Meal Lunch crackers Percent of Meal Consumed 100% 100% Feeding Ability Independent Urine Appearance Clear Urine Color Yellow Stool Size Moderate Stool Color Yellow Stool Consistency Watery Loose # Voids 1 1 # Bowel Movements 1 Exam: AVSS, RIGHT foot wound site is clean and healing well. Reviewed MRI report and saw pictures. Infectious Diseases report appreciated. Patient anticipates going home to [place]. A/P Narrative A/P Narrative: Assessment: Satisfactory progress from wound care point of view. Plan of Treatment: Plan: Continue current treatment. If d/c and she is here, would see her at clinic in ONE week. Time Spent With Patient Time: Total time spent is greater than 50% in coordination of care (as documented) at patient's floor/unit and/or counseling patient:
--- NOTE | 2022-09-11 14:04 | Internal Med Progress Note ---
SUBJECTIVE Subjective Patient information: Note initiated : 09/11/22 at 1:56 pm Service Date, if different from initiated Date: [] Patient: Rebekah Angulo 41 y/o F admitted on 09/08/22. Chief Complaint: [] Interval history: Ms. Angulo is a 41-year-old female with a history of type 1 diabetes mellitus, diabetic infections requiring lower extremity amputations, chronic kidney disease stage III, history of substance use disorder presented to the ED with concerns for a right foot infection at the site of prior partial foot amputation. The patient says that she had her foot partially amputated in [place] it was at [facility]. The patient was then discharged to a [facility] facility in [place], [place] and recently discharged to home. Recently there has been purulence and pain from a dehisced area at the surgical site on her right foot. In the emergency department, the patient was afebrile and vitals were normal except for moderate hypertension. There is no leukocytosis, hemoglobin was 9.5 which was higher than her baseline. Sodium level was 130, renal function was at her baseline. [id number] glucose check was initially 603 and improved to 290 in the ED. An x-ray of the right foot did not show any evidence of bone changes that would be concerning for osteomyelitis. Procalcitonin level was 0.13. CRP level was 1.1. The patient was given vancomycin IV and Zosyn. Hospital medicine asked to admit the patient. 09/10. Vital stable overnight. The patient is on a vancomycin IV and meropenem. Avoiding combination of vancomycin and Zosyn due to CKD and risk for acute kidney injury. Right foot superficial wound cultures growing gram-negative bacilli. Blood cultures showing no growth to date. MRI right foot without contrast showed severe cellulitis in the midfoot and first and second metatarsal regions. There was increased intramedullary signal within the distal aspects of the first and second metatarsals concerning for osteomyelitis. Infectious disease consulted. 09/11. Vital stable overnight, afebrile. Satisfactory glycemic control. Infectious disease evaluated the patient yesterday, felt that the MRI scan results represented residual surgical changes. Wound culture grew Enterobacter cloacae sensitive levofloxacin and a gram-negative bacillus is still pending identification and antibiotic sensitivities. Infectious disease felt that if the gram-negative bacillus was sensitive to levofloxacin and the patient could discharge on oral levofloxacin. For now, the patient continues on meropenem until final culture results. Vancomycin IV discontinued. Dr. Harper saw the patient today, felt that wound cares were going well. The patient can follow-up at [facility] wound care clinic or at her hometown in [place] if she decides to leave the area after hospital discharge. 09/12 Patient complains of nausea and diarrhea overnight. hold colace. Mild chills. No fevers. BUN/creatinine bumped up today. We will hold home lisinopril. Peripheral edema noted. Patient volume status up also noted to have hypoalbuminemia. Will give Lasix x1 with albumin today. Monitor renal function and urine output. Decrease amlodipine to 5 mg daily for edema. Review of Systems: denies headache/fever/chills/vomiting/chest or abdominal pain/cough/dyspnea. Otherwise see above. PHYSICAL EXAM General: Alert, Awake, No acute Distress Eyes/N/T: EOMI, no scleral icterus, Head/Neck: neck supple, full ROM, CV: RRR, No murmurs, Pulm: Clear b/l, no wheezing/rhonchi/rales, no respiratory distress Abd: soft, nontender, +BS x4 Ext: no clubbing/cyanosis. LLE BKA, RLE 2+ edema, Right foot wound covered in clean bandage. Neuro: Alert, no focal deficits, moves all extremities, , sensations intact b/l upper/lower Psychiatric: Skin: warm/dry, normal color Constitutional Vitals: Vital Signs Temp Pulse Resp BP Pulse Ox O2 Del Method 98.8 F 84 16 126/77 99 Room Air 09/11/22 12:00 09/11/22 12:00 09/11/22 12:00 09/11/22 12:00 09/11/22 12:00 09/11/22 12:00 Period Temp Pulse Resp BP Sys/Ding Pulse Ox O2 Del Method O2 Flow Rate Last 24 Hr 97.0 F-98.8 F 76-85 14-16 126-150/77-89 98-100 Room Air-Room Air Intake and Output 09/11/22 09/11/22 09/11/22 03:59 11:59 19:59 Intake Total 650 770 720 Balance 650 770 720 Intake & Output: Intake & Output 07/14/23 07/14/23 07/14/23 03:59 11:59 19:59 Intake Total 650 770 720 Balance 650 770 720 Intake: IV 50 50 Merrem 1 gm In Sodium Chloride 50 50 0.9% 50 ml @ 100 mls/hr IV Q8H [facility] Rx#:[id number] Oral 600 720 720 Other: Meal crackers Breakfast Lunch Percent of Meal Consumed 100% 25% 100% Feeding Ability Independent Assist with Tray Set Up Assist with Tray Set Up Urine Appearance Clear Urine Color Yellow Stool Size Moderate Stool Color Yellow Stool Consistency Watery Loose # Voids 1 1 # Bowel Movements 1 OBJ DATA Labs 09/12/22 05:16 09/12/22 05:16 Labs: Abnormal Lab Results 09/11/22 09/11/22 09/10/22 05:15 05:10 05:39 RBC 2.82 L Hgb 7.9 L Hct 25.7 L POC Hct MCHC 30.7 L Lymph # (Auto) 1.21 L ESR POC VBG pCO2 at Temp POC VBG pO2 POC VBG HCO3 POC VBG Total CO2 POC Venous O2 Sat POC VBG Base Excess POC Sodium Sodium Chloride 110 H Carbon Dioxide 17 L POC Total CO2 Anion Gap 7.0 L POC BUN BUN 30 H Creatinine 1.7 H POC Creatinine Glucose 115 H POC Glucose Hemoglobin A1c 10.0 H Calcium 8.3 L Magnesium GGT 101 H Alkaline Phosphatase 155 H Lactate Dehydrogenase 313 H C-Reactive Protein Total Protein Albumin 2.3 L Globulin Albumin/Globulin Ratio 0.6 L Triglycerides 266 H Beta-Hydroxybutyrate Procalcitonin 09/10/22 09/09/22 09/09/22 05:38 05:47 05:47 RBC 2.97 L 2.67 L Hgb 8.4 L 7.6 L Hct 27.1 L 24.4 L POC Hct MCHC Lymph # (Auto) ESR POC VBG pCO2 at Temp POC VBG pO2 POC VBG HCO3 POC VBG Total CO2 POC Venous O2 Sat POC VBG Base Excess POC Sodium Sodium 131 L Chloride Carbon Dioxide 17 L POC Total CO2 Anion Gap POC BUN BUN 29 H Creatinine 1.6 H POC Creatinine Glucose 290 H POC Glucose Hemoglobin A1c Calcium 8.1 L Magnesium 1.5 L GGT 95 H Alkaline Phosphatase 160 H Lactate Dehydrogenase 273 H C-Reactive Protein Total Protein 5.5 L Albumin 2.3 L Globulin Albumin/Globulin Ratio 0.7 L Triglycerides 211 H Beta-Hydroxybutyrate Procalcitonin 09/08/22 09/08/22 09/08/22 16:40 16:36 16:32 RBC Hgb Hct POC Hct 31.0 L MCHC Lymph # (Auto) ESR POC VBG pCO2 at Temp 27.9 L POC VBG pO2 44 H POC VBG HCO3 16.3 L POC VBG Total CO2 17.0 L POC Venous O2 Sat 80.0 H POC VBG Base Excess -9.0 L POC Sodium 130 L Sodium Chloride Carbon Dioxide POC Total CO2 19.0 L Anion Gap POC BUN 31 H BUN Creatinine POC Creatinine 1.7 H Glucose POC Glucose 603 H* Hemoglobin A1c Calcium Magnesium GGT Alkaline Phosphatase Lactate Dehydrogenase C-Reactive Protein Total Protein Albumin Globulin Albumin/Globulin Ratio Triglycerides Beta-Hydroxybutyrate Procalcitonin 0.13 H 09/08/22 09/08/22 16:32 16:32 RBC 3.36 L Hgb 9.5 L Hct 29.3 L POC Hct MCHC Lymph # (Auto) ESR 97 H POC VBG pCO2 at Temp POC VBG pO2 POC VBG HCO3 POC VBG Total CO2 POC Venous O2 Sat POC VBG Base Excess POC Sodium Sodium Chloride Carbon Dioxide POC Total CO2 Anion Gap POC BUN BUN Creatinine POC Creatinine Glucose POC Glucose Hemoglobin A1c Calcium Magnesium GGT Alkaline Phosphatase 190 H Lactate Dehydrogenase C-Reactive Protein 1.10 H Total Protein Albumin 2.7 L Globulin 4.1 H Albumin/Globulin Ratio Triglycerides Beta-Hydroxybutyrate 0.81 H Procalcitonin Meds: Medications Acetaminophen (Acetaminophen 325 Mg Tablet) 325 mg PO Q6HP PRN; Protocol PRN Reason: Per Pain Protocol/Fever > 101 Last Admin: 09/11/22 08:04 Dose: 325 mg Albuterol Sulfate (Albuterol Sulfate 2.5 Mg/3 Ml Nebulizer) 2.5 mg NEB Q2HP PRN PRN Reason: Shortness Of Breath Amlodipine Besylate (Amlodipine 5 Mg Tablet) 5 mg PO BID [facility] Last Admin: 09/11/22 08:03 Dose: 5 mg Aspirin (Aspirin 325 Mg Enteric Coated Tablet) 325 mg PO DAILY [facility] Last Admin: 09/11/22 08:05 Dose: 325 mg Atorvastatin Calcium (Atorvastatin 40 Mg Tablet) 80 mg PO HS [facility] Last Admin: 09/10/22 22:02 Dose: 80 mg Buspirone HCl (Buspirone 5 Mg Tablet) 10 mg PO BID [facility] Last Admin: 09/11/22 08:05 Dose: 10 mg Dextrose (Dextrose 50% 50 Ml Vial) 0 ml IV UD PRN PRN Reason: Per Sliding Scale Diagnostic Test (Pha) (Accu-Chek 1 Each Strip) 1 each FS ACHS [facility] Last Admin: 09/11/22 11:42 Dose: 1 each Diphenhydramine HCl (Diphenhydramine 50 Mg/Ml Vial) 25 mg IV Q4HP PRN PRN Reason: Itching Last Admin: 09/11/22 06:41 Dose: 25 mg Docusate Sodium (Docusate Sodium 100 Mg Capsule) 100 mg PO BID [facility] Last Admin: 09/11/22 08:06 Dose: 100 mg Duloxetine HCl (Duloxetine 30 Mg Capsule) 30 mg PO DAILY [facility] Last Admin: 09/11/22 08:03 Dose: 30 mg Gabapentin (Gabapentin 300 Mg Capsule) 300 mg PO TID [facility] Last Admin: 09/11/22 08:03 Dose: 300 mg Glucose (Dextrose 31 Gm Oral.Susp) 15 gm PO PRN PRN PRN Reason: Hypoglycemia Heparin Sodium (Porcine) (Heparin 5,000 Unit/Ml Vial) 5,000 unit SQ Q12 [facility] Last Admin: 09/11/22 08:02 Dose: 5,000 unit Hydralazine HCl (Hydralazine 20 Mg/Ml Vial) 10 mg IV Q4-6HP PRN PRN Reason: Hypertension Last Admin: 09/09/22 18:21 Dose: 10 mg Hydromorphone HCl (Hydromorphone 0.5 Mg/0.5 Ml Syringe) 0.5 mg IV Q2HP PRN; Protocol PRN Reason: Per Pain Protocol Last Admin: 09/11/22 13:05 Dose: 0.5 mg Hydroxyzine HCl (Hydroxyzine 25 Mg Tablet) 25 mg PO TIDP PRN PRN Reason: Allergic Symptoms Last Admin: 09/10/22 13:26 Dose: 25 mg Meropenem 1 gm/ Sodium (Chloride) 50 mls @ 100 mls/hr IV Q8H [facility] Last Infusion: 09/11/22 06:52 Dose: Infused Insulin Glargine (Insulin Glargine, Human 1 Unit/0.01 Ml) 20 unit SQ HS [facility] Last Admin: 09/10/22 22:23 Dose: 20 unit Insulin Human Lispro (Insulin Lispro 1 Unit/0.01 Ml Unit) 0 unit SQ ACHS [facility]; Protocol Last Admin: 09/11/22 13:08 Dose: Not Given Labetalol HCl (Labetalol 5 Mg/Ml Ml) 10 mg IV Q2HP PRN PRN Reason: Hypertension Lactulose (Lactulose 20 Gm/30 Ml Oral.Carey) 10 gm PO DAILYP PRN PRN Reason: Constipation Lidocaine (Lidocaine Patch) 1 patch TOPICAL DAILY@1000 [facility] Last Admin: 09/11/22 10:09 Dose: 1 patch Lisinopril (Lisinopril 10 Mg Tablet) 10 mg PO DAILY [facility] Last Admin: 09/11/22 08:05 Dose: 10 mg Methocarbamol (Methocarbamol 500 Mg Tablet) 500 mg PO TIDP PRN PRN Reason: Muscle Spasm Last Admin: 09/11/22 10:09 Dose: 500 mg Metoprolol Succinate (Metoprolol Succinate 50 Mg Tab.Xl.24h) 100 mg PO BID [facility] Last Admin: 09/11/22 08:04 Dose: 100 mg Morphine Sulfate (Morphine 15 Mg Tab.Sr.12h) 15 mg PO BID [facility]; Protocol Last Admin: 09/11/22 08:02 Dose: 15 mg Nicotine (Nicotine 14 Mg Patch) 14 mg TOPICAL DAILY@1000 [facility] Last Admin: 09/11/22 10:32 Dose: 14 mg Ondansetron HCl (Ondansetron 4 Mg/2 Ml Vial) 4 mg IV Q4HP PRN; Protocol PRN Reason: Nausea And Vomiting Last Admin: 09/11/22 09:10 Dose: 4 mg Oxycodone HCl (Oxycodone Ir 5 Mg Tablet) 10 mg PO Q6HP PRN; Protocol PRN Reason: Per Pain Protocol Last Admin: 09/11/22 08:02 Dose: 10 mg Pantoprazole Sodium (Pantoprazole 40 Mg Tablet) 40 mg PO BIDAC [facility] Last Admin: 09/11/22 06:41 Dose: 40 mg Gabapentin Enacarbil 300 Mg Tablet Extended Release 1 dose PO TID [facility] Last Admin: 09/11/22 09:09 Dose: Not Given Senna (Sennosides 1 Tablet) 2 tab PO HSP PRN PRN Reason: Constipation Last Admin: 09/10/22 08:58 Dose: 2 tab Simethicone (Simethicone 80 Mg Tab.Chew) 80 mg PO QID [facility] Last Admin: 09/11/22 13:09 Dose: Not Given Sodium Chloride (0.9 % Sodium Chloride 10 Ml Syringe) 10 ml IV Q8 [facility] Last Admin: 09/11/22 06:04 Dose: 10 ml Trazodone HCl (Trazodone Hcl 100 Mg Tablet) 100 mg PO HSP PRN PRN Reason: Insomnia Last Admin: 09/10/22 22:02 Dose: 100 mg A/P Narrative A/P Narrative: A: #Right diabetic foot infection at surgical incision wound dehiscence: -wound growing MSSA/Enterobacter/Klebsiella #DM1: A1c 10.0 #DIONE on CKD III: - #Peripheral edema/Hypoalbuminemia #metabolic acidosis: 2/2 renal dz #Chronic anemia: stable #Hyponatremia/Hyperphos: #h/o Left BKA #HTN/HLD: #Chr pain, abd: *Substance abuse: per records fentanyl/meth. last used meth was April, denies IV. MJ use *GERD: *Anxiety: Plan: -ID following, plan to d/c on levoquin for total of 14-day course and f/u in ID clinic -Follow blood cultures: NGTD. -Monitor hemoglobin and renal function -Analgesics, avoid NSAIDs. -Added baclofen as needed for muscle spasms. -Lantus 20 units HS and SSI medium dose. -Continue home amlodipine(decrease to 5mg for edema)/toprol, aspirin/atorvas tatin, buspirone/Cymbalta, gabapentin -hold ACEI -lasix w/albumin today -Referral to the tire rebuilder for diabetes management -pt needs new scripts for all her home meds -ppx: Heparin SQ / home ppi CODE STATUS: Full Plan of Treatment: Plan: Continue current treatment. If d/c and she is here, would see her at clinic in ONE week. Time Spent With Patient Time: Total time spent is greater than 50% in coordination of care (as documented) at patient's floor/unit and/or counseling patient: Subsequent: Total time with patient: 50 - 65 Minutes QUALITY Stroke Symptom Onset Unknown: No VTE Deep Vein Thrombosis/Pulmonary Embolism Present on Admission: No
--- NOTE | 2022-09-11 14:22 | Discharge Summary ---
Discharge Provider Provider IMPORTANT FOLLOW-UP INFORMATION FOR PCP: Patient information: Note initiated : 09/11/22 at 2:20 pm Service Date, if different from initiated Date: [] Patient: Rebekah Angulo 41 y/o F admitted on 09/08/22. Chief Complaint: [] Date of admission: 09/08/22 23:09 Discharge date: 09/14/22 Primary care physician: PCP No Consults: 09/08/22 Consult to Physician [CONS] Stat Comment: Consulting Provider: Ruel Garnica Reason For Exam: Physician to Consult 09/09/22 04:50 Consult to Physician [CONS] Routine Comment: Right foot diabetic wound Consulting Provider: Zach Sun Reason For Exam: Physician to Consult 09/10/22 09:23 Consult to Physician [CONS] Routine Comment: Consulting Provider: Howie COREAS Reason For Exam: Physician to Consult COURSE Hospital Course Hospital course: Ms. Angulo is a 41-year-old female with a history of type 1 diabetes mellitus, diabetic infections requiring lower extremity amputations, chronic kidney disease stage III, history of substance use disorder presented to the ED with concerns for a right foot infection at the site of prior partial foot amputation. The patient says that she had her foot partially amputated in [place] [place] The patient was then discharged to a alf facility in [place], [place] and recently discharged to home. Recently there has been purulence and pain from a dehisced area at the surgical site on her right foot. In the emergency department, the patient was afebrile and vitals were normal except for moderate hypertension. There is no leukocytosis, hemoglobin was 9.5 which was higher than her baseline. Sodium level was 130, renal function was at her baseline. Bwgha-ii-wmpm glucose check was initially 603 and improved to 290 in the ED. An x-ray of the right foot did not show any evidence of bone changes that would be concerning for osteomyelitis. Procalcitonin level was 0.13. CRP level was 1.1. The patient was given vancomycin IV and Zosyn. Hospital medicine asked to admit the patient. 09/10. Vital stable overnight. The patient is on a vancomycin IV and meropenem. Avoiding combination of vancomycin and Zosyn due to CKD and risk for acute kidney injury. Right foot superficial wound cultures growing gram-negative bacilli. Blood cultures showing no growth to date. MRI right foot without contrast showed severe cellulitis in the midfoot and first and second metatarsal regions. There was increased intramedullary signal within the distal aspects of the first and second metatarsals concerning for osteomyelitis. Infectious disease consulted. 09/11. Vital stable overnight, afebrile. Satisfactory glycemic control. Infectious disease evaluated the patient yesterday, felt that the MRI scan results represented residual surgical changes. Wound culture grew Enterobacter cloacae sensitive levofloxacin and a gram-negative bacillus is still pending identification and antibiotic sensitivities. Infectious disease felt that if the gram-negative bacillus was sensitive to levofloxacin and the patient could discharge on oral levofloxacin. For now, the patient continues on meropenem until final culture results. Vancomycin IV discontinued. Dr. Harper saw the patient today, felt that wound cares were going well. The patient can follow-up at [facility] wound care clinic or at her hometown in [place] if she decides to leave the area after hospital discharge. 09/12 Patient complains of nausea and diarrhea overnight. hold colace. Mild chills. No fevers. BUN/creatinine bumped up today. We will hold home lisinopril. Peripheral edema noted. Patient volume status up also noted to have hypoalbuminemia. Will give Lasix x1 with albumin today. Monitor renal function and urine output. Decrease amlodipine to 5 mg daily for edema. 09/13 Patient complains of lower back pain paraspinal musculature. She is tender to palpation along the paraspinal musculature lower back, will use heat pad therapy. Patient's creatinine BUN jumped yesterday with no clear explanation. She does have 2+ pitting edema in the right lower extremity and was given Lasix with albumin x1 yesterday with good output and renal function same as yesterday. She did have a visitor the day before yesterday. Check UDS given her history. Nephrology consult. 09/14 Patient seems a feeling better today. She states that since being off the vancomycin she feels better as she was feeling itchy on it and generalized poor feeling. Patient seems to be doing well on Levaquin. Renal function starting to now downtrend mildly. A: #Right diabetic foot infection at surgical incision wound dehiscence: -wound growing MSSA/Enterobacter/Klebsiella #DM1: A1c 10.0 #DIONE on CKD IIIb: #Peripheral edema/Hypoalbuminemia #metabolic acidosis: 2/2 renal dz #Chronic anemia: stable #Hyponatremia/Hyperphos: #h/o Left BKA #HTN/HLD: #Chr pain, abd: *Substance abuse: per records fentanyl/meth. last used meth was April, denies IV. MJ use *GERD: *Anxiety: Plan: -ID following, transitioned to levoquin, total abx course of 14-days, f/u in ID clinic -amlodipine decreased to 5mg for edema -renally dose gabapentin -Referral to the production cloth cutter for diabetes management -new scripts printed for home meds Discharge diagnosis: Right foot diabetic infection postsurgical site Secondary discharge diagnosis: Diabetes poorly controlled chronic kidney disease chronic anemia history left BKA hypertension hyperlipidemia chronic pain history of substance abuse GERD anxiety Time Spent with Patient Time attestation: Total time spent providing and/or coordinating discharge services: Time spent: Greater than 30 minutes EXAM Constitutional Vitals: Temp Pulse Resp BP Pulse Ox O2 Del Method 98.8 F 84 16 126/77 99 Room Air 09/11/22 12:00 09/11/22 12:00 09/11/22 12:00 09/11/22 12:00 09/11/22 12:00 09/11/22 12:00 Discharge Data Data Completed and Pending Labs on day of discharge: Labs from last 24 hours 09/11/22 09/11/22 05:15 05:10 WBC 4.6 RBC 2.82 L Hgb 7.9 L Hct 25.7 L MCV 91.1 MCH 28.0 MCHC 30.7 L RDW 14.4 Plt Count 191 MPV 11.1 Immature Gran % (Auto) 0.2 Neut % (Auto) 59.0 Lymph % (Auto) 26.4 [place] % (Auto) 10.0 Eos % (Auto) 3.5 Baso % (Auto) 0.9 Lymph # (Auto) 1.21 L [place] # (Auto) 0.46 Eos # (Auto) 0.16 Baso # (Auto) 0.04 Immature Gran # 0.01 Absolute Neutrophils 2.70 Hemoglobin A1c 10.0 H Estim Average Glucose 240 Preliminary micro results at discharge 09/08/22 16:40 Blood Culture - Preliminary Blood 09/08/22 16:32 Blood Culture - Preliminary Blood Discharge Plan Patient/Caregiver Discharge Instructions Activity: increase activity as tolerated Diet: Consistent Carbohydrate Activity Restrictions/Additional Instructions: Referral to production cloth cutter 1 to 2 weeks in [place] for diabetic management. Referral to see infectious disease for right foot wound in 1 to 2 weeks in [place]. Follow-up with PCP in 3 to 7 days. Restart home lisinopril in 3 days Prescriptions: New amlodipine [Norvasc] 5 mg tablet 5 mg PO QDAY Qty: 30 0RF gabapentin 300 mg capsule 300 mg PO BID Qty: 60 0RF lisinopril 5 mg tablet 5 mg PO QDAY Qty: 30 0RF levofloxacin 750 mg tablet 750 mg PO Q48H Qty: 4 0RF Rx Instructions: start on 09/16/2022 Continued aspirin-sod bicarb-citric acid 324 mg Tablet, Effervescent 324 mg PO QDAY Bacillus coagulans-inulin 1 billion-250 cell-mg Capsule 1 cap PO DAILY acetaminophen 500 mg Tablet 500 mg PO Q4HP PRN (Reason: Pain) simethicone 80 mg Tablet,Chewable 80 mg PO QID buspirone 5 mg Tablet 10 mg PO BID Qty: 120 0RF atorvastatin 80 mg Tablet 80 mg PO QDAY Qty: 30 0RF hydrocodone-acetaminophen 5-325 mg Tablet 1 tab PO Q6H PRN (Reason: Pain) Qty: 20 0RF metoprolol succinate 100 mg Tablet Extended Release 24 Hr 100 mg PO BID Qty: 60 0RF metoclopramide HCl 5 mg Tablet 5 mg PO ACHS PRN (Reason: Nausea) Qty: 30 0RF promethazine 25 mg Tablet 25 mg PO Q6H PRN (Reason: Nausea) Qty: 20 0RF albuterol sulfate 90 mcg/actuation Hfa Aerosol Inhaler 2 puff INHALATION Q6H PRN (Reason: Shortness Of Breath) Qty: 1 0RF cholecalciferol (vitamin D3) 125 mcg (5,000 unit) Tablet 125 mcg PO QDAY Qty: 30 0RF naloxone 4 mg/actuation Wright,Non-Aerosol 4 mg INTRANASAL Q2M PRN (Reason: Opioid Overdose) Qty: 1 0RF Rx Instructions: spray 1 dose into ONE nostril; alternate nostrils w each dose until help arrives duloxetine 30 mg Capsule, Delayed Rel Sprinkle 30 mg PO QDAY Qty: 30 0RF pantoprazole 40 mg PO BID Qty: 60 0RF trazodone 100 mg PO HS PRN (Reason: Insomnia) Qty: 30 0RF insulin lispro 100 unit/mL Insulin Pen 7 unit SUBCUT AC Qty: 15 0RF insulin glargine 100 unit/mL (3 mL) Insulin Pen 38 unit SUBCUT QAM Qty: 15 0RF Discontinued lisinopril 10 mg Tablet 10 mg PO QAM amlodipine 5 mg Tablet 5 mg PO BID gabapentin 300 mg Capsule 300 mg PO TID Follow Up Plan Patient Disposition: Home, Self-Care Prognosis: Undetermined Overall status at discharge: patient is progressing back to baseline Discharge Orders: Discharge Order (Routine); Ordered 09/14/22 Ordered By: Haider Lopez [facility] VTE Deep Vein Thrombosis/Pulmonary Embolism Present on Admission: No
[2022-09-11] MEDS: ATORVASTATIN 40 MG TABLET PO SCH (21:38)
[2022-09-11] MEDS: traZODone HCL 100 MG TABLET PO PRN (21:57)
[2022-09-11] MEDS: INSULIN GLARGINE, HUMAN 1 UNIT/0.01 ML SQ SCH (21:57)
[2022-09-12] MEDS: 0.9 % SODIUM CHLORIDE 10 ML SYRINGE IV SCH ×3 (04:49→21:04)
[2022-09-12] MEDS: oxyCODONE IR 5 MG TABLET PO PRN ×3 (04:49→22:34)
[2022-09-12] MEDS: ONDANSETRON 4 MG/2 ML VIAL IV PRN (05:12)
[2022-09-12] MEDS: MEROPENEM 1 GM in 0.9 % SODIUM CHLORIDE 50 ML IV SCH (05:50)
[2022-09-12] MEDS: HYDROmorphone 0.5 MG/0.5 ML SYRINGE IV PRN ×3 (06:12→19:47)
[2022-09-12 06:42] LABS: Basophils # (Auto) 0.05 K/mcL (0.00-0.30); Basophils % (Auto) 0.8 % (0.0-2.0); Eosinophils # (Auto) 0.21 K/mcL (0.00-0.70); Eosinophils % (Auto) 3.2 % (0.0-7.0); Hematocrit 26.5 % (34.1-44.9); Lymphocytes # (Auto) 1.74 K/mcL (1.50-4.80); Lymphocytes % (Auto) 26.8 % (15.5-49.0); Mean Corpuscular HGB Conc 30.2 g/dL (31.0-36.0); Mean Platelet Volume 9.9 fL (8.8-12.5); Monocytes # (Auto) 0.65 K/mcL (0.10-0.90); Neutrophils % (Auto) 58.9 % (38.0-78.0); Platelet Count 181 K/mcL (140-440); RBC 2.85 M/mcL (3.59-5.38); Red Cell Distribution Width 14.2 % (11.5-14.5); WBC 6.5 K/mcL (4.5-11.0)
[2022-09-12 07:13] LABS: ALT/SGPT 24 U/L (<40); AST/SGOT 25 U/L (<32); Albumin 2.3 gm/dL (3.2-5.2); Albumin/Globulin Ratio 0.6 (1.0-2.3); Alkaline Phosphatase 208 U/L (39-117); Bilirubin,Direct < 0.2 mg/dL (0-0.3); Bilirubin,Total < 0.2 mg/dL (0.1-1.0); Blood Urea Nitrogen 40 mg/dL (6-20); Calcium 8.6 mg/dL (8.6-10.4); Carbon Dioxide 17 mmol/L (22-30); Chloride 105 mmol/L (96-108); Globulin 3.7 gm/dL (2.2-3.7); Glomerular Filtration Rate 26; Glucose 214 mg/dL (70-105); Lactate Dehydrogenase 298 U/L (135-225); Phosphorous 4.7 mg/dL (2.5-4.5); Triglycerides 166 mg/dL (<150); Uric Acid 4.6 mg/dL (2.5-8.0)
[2022-09-12] MEDS: INSULIN LISPRO 1 UNIT/0.01 ML UNIT SQ SCH ×4 (07:32→21:03)
[2022-09-12] MEDS: PANTOPRAZOLE 40 MG TABLET PO SCH ×2 (07:33→16:52)
[2022-09-12] MEDS ORDERED: PROCHLORPERAZINE 10 MG/2 ML VIAL IV PRN (07:44)
[2022-09-12] MEDS ORDERED: FUROSEMIDE 40 MG/4 ML VIAL IV SCH (09:06)
[2022-09-12] MEDS ORDERED: ALBUMIN HUMAN 12.5 GM/50 ML VIAL IV SCH (09:06)
[2022-09-12] MEDS ORDERED: hydrALAZINE 20 MG/ML VIAL IV PRN (09:09)
[2022-09-12] MEDS: SODIUM BICARBONATE 650 MG TABLET PO SCH ×3 (09:43→21:02)
[2022-09-12] MEDS: LISINOPRIL 10 MG TABLET PO SCH (09:43)
[2022-09-12] MEDS: NICOTINE 14 MG PATCH TOPICAL SCH (09:44)
[2022-09-12] MEDS: ASPIRIN 325 MG ENTERIC COATED TABLET PO SCH (09:44)
[2022-09-12] MEDS: METOPROLOL SUCCINATE 50 MG TAB.XL.24H PO SCH ×2 (09:44→21:01)
[2022-09-12] MEDS: HEPARIN 5,000 UNIT/ML VIAL SQ SCH ×2 (09:44→21:00)
[2022-09-12] MEDS: morphine 15 MG TAB.SR.12H PO SCH ×2 (09:45→21:01)
[2022-09-12] MEDS: GABAPENTIN 300 MG CAPSULE PO SCH ×3 (09:45→21:01)
[2022-09-12] MEDS: busPIRone 5 MG TABLET PO SCH ×2 (09:45→21:01)
[2022-09-12] MEDS: DULoxetine 30 MG CAPSULE PO SCH (09:45)
[2022-09-12] MEDS: SIMETHICONE 80 MG TAB.CHEW PO SCH ×4 (09:47→21:01)
--- NOTE | 2022-09-12 09:52 | Internal Med Progress Note ---
SUBJECTIVE Subjective Patient information: Note initiated : 09/12/22 at 9:51 am Service Date, if different from initiated Date: [] Patient: Rebekah Angulo 41 y/o F admitted on 09/08/22. Chief Complaint: [] Interval history: Ms. Angulo is a 41-year-old female with a history of type 1 diabetes mellitus, diabetic infections requiring lower extremity amputations, chronic kidney disease stage III, history of substance use disorder presented to the ED with concerns for a right foot infection at the site of prior partial foot amputation. The patient says that she had her foot partially amputated in [place] was [facility]. The patient was then discharged to a jail facility in [place], [place] and recently discharged to home. Recently there has been purulence and pain from a dehisced area at the surgical site on her right foot. In the emergency department, the patient was afebrile and vitals were normal except for moderate hypertension. There is no leukocytosis, hemoglobin was 9.5 which was higher than her baseline. Sodium level was 130, renal function was at her baseline. Ohxfo-ln-evhf glucose check was initially 603 and improved to 290 in the ED. An x-ray of the right foot did not show any evidence of bone changes that would be concerning for osteomyelitis. Procalcitonin level was 0.13. CRP level was 1.1. The patient was given vancomycin IV and Zosyn. Hospital medicine asked to admit the patient. 09/10. Vital stable overnight. The patient is on a vancomycin IV and meropenem. Avoiding combination of vancomycin and Zosyn due to CKD and risk for acute kidney injury. Right foot superficial wound cultures growing gram-negative bacilli. Blood cultures showing no growth to date. MRI right foot without contrast showed severe cellulitis in the midfoot and first and second metatarsal regions. There was increased intramedullary signal within the distal aspects of the first and second metatarsals concerning for osteomyelitis. Infectious disease consulted. 09/11. Vital stable overnight, afebrile. Satisfactory glycemic control. Infectious disease evaluated the patient yesterday, felt that the MRI scan results represented residual surgical changes. Wound culture grew Enterobacter cloacae sensitive levofloxacin and a gram-negative bacillus is still pending identification and antibiotic sensitivities. Infectious disease felt that if the gram-negative bacillus was sensitive to levofloxacin and the patient could discharge on oral levofloxacin. For now, the patient continues on meropenem until final culture results. Vancomycin IV discontinued. Dr. Harper saw the patient today, felt that wound cares were going well. The patient can follow-up at [facility] wound care clinic or at her hometown in [place] if she decides to leave the area after hospital discharge. 09/12 Patient complains of nausea and diarrhea overnight. hold colace. Mild chills. No fevers. BUN/creatinine bumped up today. We will hold home lisinopril. Peripheral edema noted. Patient volume status up also noted to have hypoalbuminemia. Will give Lasix x1 with albumin today. Monitor renal function and urine output. Decrease amlodipine to 5 mg daily for edema. Review of Systems: denies headache/fever/chills/vomiting/chest or abdominal pain/cough/dyspnea. Otherwise see above. PHYSICAL EXAM General: Alert, Awake, No acute Distress Eyes/N/T: EOMI, no scleral icterus, Head/Neck: neck supple, full ROM, CV: RRR, No murmurs, Pulm: Clear b/l, no wheezing/rhonchi/rales, no respiratory distress Abd: soft, nontender, +BS x4 Ext: no clubbing/cyanosis. LLE BKA, RLE 2+ edema, Right foot wound covered in clean bandage. Neuro: Alert, no focal deficits, moves all extremities, , sensations intact b/l upper/lower Psychiatric: Skin: warm/dry, normal color Constitutional Vitals: Vital Signs Temp Pulse Resp BP Pulse Ox O2 Del Method 99.1 F H 88 18 130/81 97 Room Air 09/12/22 07:46 09/12/22 07:46 09/12/22 07:46 09/12/22 07:46 09/12/22 07:46 09/12/22 07:46 Period Temp Pulse Resp BP Sys/Ding Pulse Ox O2 Del Method O2 Flow Rate Last 24 Hr 98.4 F-99.1 F 84-94 16-18 124-156/71-100 93-100 Room Air-Room Air Intake and Output 09/11/22 09/12/22 09/12/22 19:59 03:59 11:59 Intake Total 1220 50 550 Output Total 600 Balance 1220 50 -50 Weight 81.511 kg Intake & Output: Intake & Output 09/11/22 09/12/22 09/12/22 19:59 03:59 11:59 Intake Total 1220 50 550 Output Total 600 Balance 1220 50 -50 Weight 81.511 kg Intake: IV 50 50 50 Merrem 1 gm In Sodium Chloride 50 50 50 0.9% 50 ml @ 100 mls/hr IV Q8H COUNTS INCLUDE 234 BEDS AT THE [facility] Rx#:[id number] Oral 1170 500 Output: Void Amount 600 Other: Meal Dinner Percent of Meal Consumed 100% Feeding Ability Independent Urine Appearance Clear Urine Color Yellow Urine Odor Normal Stool Size Small Stool Color Yellow Stool Consistency Watery Loose # Voids 2 # Bowel Movements 2 OBJ DATA Labs 09/12/22 05:16 09/12/22 05:16 Labs: Abnormal Lab Results 09/12/22 09/12/22 09/11/22 05:16 05:16 05:15 RBC 2.85 L 2.82 L Hgb 8.0 L 7.9 L Hct 26.5 L 25.7 L MCHC 30.2 L 30.7 L Lymph # (Auto) 1.21 L Sodium 132 L Chloride Carbon Dioxide 17 L Anion Gap BUN 40 H Creatinine 2.2 H Glucose 214 H Hemoglobin A1c Calcium Phosphorus 4.7 H GGT 140 H Alkaline Phosphatase 208 H Lactate Dehydrogenase 298 H Albumin 2.3 L Albumin/Globulin Ratio 0.6 L Triglycerides 166 H 09/11/22 09/10/22 09/10/22 05:10 05:39 05:38 RBC 2.97 L Hgb 8.4 L Hct 27.1 L MCHC Lymph # (Auto) Sodium Chloride 110 H Carbon Dioxide 17 L Anion Gap 7.0 L BUN 30 H Creatinine 1.7 H Glucose 115 H Hemoglobin A1c 10.0 H Calcium 8.3 L Phosphorus GGT 101 H Alkaline Phosphatase 155 H Lactate Dehydrogenase 313 H Albumin 2.3 L Albumin/Globulin Ratio 0.6 L Triglycerides 266 H Meds: Medications Acetaminophen (Acetaminophen 325 Mg Tablet) 325 mg PO Q6HP PRN; Protocol PRN Reason: Per Pain Protocol/Fever > 101 Last Admin: 09/11/22 14:14 Dose: 325 mg Albuterol Sulfate (Albuterol Sulfate 2.5 Mg/3 Ml Nebulizer) 2.5 mg NEB Q2HP PRN PRN Reason: Shortness Of Breath Amlodipine Besylate (Amlodipine 5 Mg Tablet) 5 mg PO DAILY COUNTS INCLUDE 234 BEDS AT THE [facility] Aspirin (Aspirin 325 Mg Enteric Coated Tablet) 325 mg PO DAILY COUNTS INCLUDE 234 BEDS AT THE [facility] Last Admin: 09/12/22 09:44 Dose: 325 mg Atorvastatin Calcium (Atorvastatin 40 Mg Tablet) 80 mg PO HS COUNTS INCLUDE 234 BEDS AT THE [facility] Last Admin: 09/11/22 21:38 Dose: 80 mg Buspirone HCl (Buspirone 5 Mg Tablet) 10 mg PO BID COUNTS INCLUDE 234 BEDS AT THE [facility] Last Admin: 09/12/22 09:45 Dose: 10 mg Dextrose (Dextrose 50% 50 Ml Vial) 0 ml IV UD PRN PRN Reason: Per Sliding Scale Diagnostic Test (Pha) (Accu-Chek 1 Each Strip) 1 each FS ACHS COUNTS INCLUDE 234 BEDS AT THE [facility] Last Admin: 09/12/22 07:32 Dose: 1 each Diphenhydramine HCl (Diphenhydramine 50 Mg/Ml Vial) 25 mg IV Q4HP PRN PRN Reason: Itching Last Admin: 09/11/22 18:51 Dose: 25 mg Duloxetine HCl (Duloxetine 30 Mg Capsule) 30 mg PO DAILY COUNTS INCLUDE 234 BEDS AT THE [facility] Last Admin: 09/12/22 09:45 Dose: 30 mg Furosemide (Furosemide 40 Mg/4 Ml Vial) 40 mg IV ONCE COUNTS INCLUDE 234 BEDS AT THE [facility] Stop: 09/12/22 11:00 Last Admin: 09/12/22 09:44 Dose: 40 mg Gabapentin (Gabapentin 300 Mg Capsule) 300 mg PO TID COUNTS INCLUDE 234 BEDS AT THE [facility] Last Admin: 09/12/22 09:45 Dose: 300 mg Glucose (Dextrose 31 Gm Oral.Susp) 15 gm PO PRN PRN PRN Reason: Hypoglycemia Heparin Sodium (Porcine) (Heparin 5,000 Unit/Ml Vial) 5,000 unit SQ Q12 COUNTS INCLUDE 234 BEDS AT THE [facility] Last Admin: 09/12/22 09:44 Dose: 5,000 unit Hydralazine HCl (Hydralazine 20 Mg/Ml Vial) 10 mg IV Q4-6HP PRN PRN Reason: Hypertension Last Admin: 09/09/22 18:21 Dose: 10 mg Hydralazine HCl (Hydralazine 20 Mg/Ml Vial) 0 mg IV Q2HP PRN PRN Reason: Hypertension Hydromorphone HCl (Hydromorphone 0.5 Mg/0.5 Ml Syringe) 0.5 mg IV Q2HP PRN; Protocol PRN Reason: Per Pain Protocol Last Admin: 09/12/22 06:12 Dose: 0.5 mg Hydroxyzine HCl (Hydroxyzine 25 Mg Tablet) 25 mg PO TIDP PRN PRN Reason: Allergic Symptoms Last Admin: 09/10/22 13:26 Dose: 25 mg Albumin Human (Buminate) 12.5 gm in 50 mls @ 100 mls/hr IV ONCE COUNTS INCLUDE 234 BEDS AT THE [facility] Stop: 09/12/22 12:00 Last Admin: 09/12/22 09:45 Dose: 100 mls/hr Meropenem 1 gm/ Sodium (Chloride) 50 mls @ 100 mls/hr IV Q12H COUNTS INCLUDE 234 BEDS AT THE [facility] Insulin Glargine (Insulin Glargine, Human 1 Unit/0.01 Ml) 20 unit SQ HS COUNTS INCLUDE 234 BEDS AT THE [facility] Last Admin: 09/11/22 21:57 Dose: 20 unit Insulin Human Lispro (Insulin Lispro 1 Unit/0.01 Ml Unit) 0 unit SQ ACHS COUNTS INCLUDE 234 BEDS AT THE [facility]; Protocol Last Admin: 09/12/22 07:32 Dose: 6 unit Labetalol HCl (Labetalol 5 Mg/Ml Ml) 10 mg IV Q2HP PRN PRN Reason: Hypertension Lactulose (Lactulose 20 Gm/30 Ml Oral.Carey) 10 gm PO DAILYP PRN PRN Reason: Constipation Lisinopril (Lisinopril 10 Mg Tablet) 10 mg PO DAILY COUNTS INCLUDE 234 BEDS AT THE [facility] Last Admin: 09/12/22 09:43 Dose: 10 mg Methocarbamol (Methocarbamol 500 Mg Tablet) 500 mg PO TIDP PRN PRN Reason: Muscle Spasm Last Admin: 09/11/22 16:03 Dose: 500 mg Metoprolol Succinate (Metoprolol Succinate 50 Mg Tab.Xl.24h) 100 mg PO BID COUNTS INCLUDE 234 BEDS AT THE [facility] Last Admin: 09/12/22 09:44 Dose: 100 mg Morphine Sulfate (Morphine 15 Mg Tab.Sr.12h) 15 mg PO BID COUNTS INCLUDE 234 BEDS AT THE [facility]; Protocol Last Admin: 09/12/22 09:45 Dose: 15 mg Nicotine (Nicotine 14 Mg Patch) 14 mg TOPICAL DAILY@1000 RONA Last Admin: 09/12/22 09:44 Dose: 14 mg Ondansetron HCl (Ondansetron 4 Mg/2 Ml Vial) 4 mg IV Q4HP PRN; Protocol PRN Reason: Nausea And Vomiting Last Admin: 09/12/22 05:12 Dose: 4 mg Oxycodone HCl (Oxycodone Ir 5 Mg Tablet) 10 mg PO Q6HP PRN; Protocol PRN Reason: Per Pain Protocol Last Admin: 09/12/22 04:49 Dose: 10 mg Pantoprazole Sodium (Pantoprazole 40 Mg Tablet) 40 mg PO BIDAC COUNTS INCLUDE 234 BEDS AT THE [facility] Last Admin: 09/12/22 07:33 Dose: 40 mg Gabapentin Enacarbil 300 Mg Tablet Extended Release 1 dose PO TID COUNTS INCLUDE 234 BEDS AT THE [facility] Last Admin: 09/11/22 23:13 Dose: Not Given Prochlorperazine (Prochlorperazine 10 Mg/2 Ml Vial) 10 mg IV Q4HP PRN PRN Reason: Nausea And Vomiting Last Admin: 09/12/22 07:53 Dose: 10 mg Senna (Sennosides 1 Tablet) 2 tab PO HSP PRN PRN Reason: Constipation Last Admin: 09/10/22 08:58 Dose: 2 tab Simethicone (Simethicone 80 Mg Tab.Chew) 80 mg PO QID COUNTS INCLUDE 234 BEDS AT THE [facility] Last Admin: 09/12/22 09:47 Dose: 80 mg Sodium Bicarbonate (Sodium Bicarbonate 650 Mg Tablet) 1,300 mg PO TID COUNTS INCLUDE 234 BEDS AT THE [facility] Stop: 09/12/22 21:01 Last Admin: 09/12/22 09:43 Dose: 1,300 mg Sodium Chloride (0.9 % Sodium Chloride 10 Ml Syringe) 10 ml IV Q8 COUNTS INCLUDE 234 BEDS AT THE [facility] Last Admin: 09/12/22 04:49 Dose: 10 ml Trazodone HCl (Trazodone Hcl 100 Mg Tablet) 100 mg PO HSP PRN PRN Reason: Insomnia Last Admin: 09/11/22 21:57 Dose: 100 mg A/P Narrative A/P Narrative: A: #Right diabetic foot infection at surgical incision wound dehiscence: -wound growing MSSA/Enterobacter/Klebsiella #DM1: A1c 10.0 #DIONE on CKD III: - #Peripheral edema/Hypoalbuminemia #metabolic acidosis: 2/2 renal dz #Chronic anemia: stable #Hyponatremia/Hyperphos: #h/o Left BKA #HTN/HLD: #Chr pain, abd: *Substance abuse: per records fentanyl/meth. last used meth was April, denies IV. MJ use *GERD: *Anxiety: Plan: -ID following, plan to d/c on levoquin for total of 14-day course and f/u in ID clinic -Follow blood cultures: NGTD. -Monitor hemoglobin and renal function -Analgesics, avoid NSAIDs. -Added baclofen as needed for muscle spasms. -Lantus 20 units HS and SSI medium dose. -Continue home amlodipine(decrease to 5mg for edema)/toprol, aspirin/atorvast atin, buspirone/Cymbalta, gabapentin -hold ACEI -lasix w/albumin today -Referral to the registered nurse teacher for diabetes management -pt needs new scripts for all her home meds -ppx: Heparin SQ / home ppi CODE STATUS: Sales Planning Coordinator Spent With Patient Time: Total time spent is greater than 50% in coordination of care (as documented) at patient's floor/unit and/or counseling patient: Subsequent: Total time with patient: 50 - 65 Minutes QUALITY Stroke Symptom Onset Unknown: No VTE Deep Vein Thrombosis/Pulmonary Embolism Present on Admission: No
[2022-09-12] MEDS: amLODIPine 5 MG TABLET PO SCH (10:00)
[2022-09-12] MEDS: DOCUSATE SODIUM 100 MG CAPSULE PO SCH (10:00)
[2022-09-12] MEDS: GABAPENTIN ENACARBIL 300 MG PO SCH ×3 (10:00→21:04)
--- NOTE | 2022-09-12 10:15 | Infectious Disease Prog Note ---
Telemedicine Intake Start Time: 09:45 End Time: 10:00 Consent for assessment and treatment to occur via virtual technology obtained from: Patient Location of Provider: Home SUBJECTIVE Subjective Patient information: Note initiated : 09/12/22 at 10:11 am Service Date, if different from initiated Date: [] Patient: Rebekah Angulo 41 y/o F admitted on 09/08/22. Chief Complaint: [] Interval history: Feels much better with her foot. SLeepy because she just took her pain medication Constitutional Vitals: Vital Signs Temp Pulse Resp BP Pulse Ox O2 Del Method 99.1 F H 88 18 130/81 97 Room Air 09/12/22 07:46 09/12/22 07:46 09/12/22 07:46 09/12/22 07:46 09/12/22 07:46 09/12/22 07:46 Period Temp Pulse Resp BP Sys/Ding Pulse Ox O2 Del Method O2 Flow Rate Last 24 Hr 98.4 F-99.1 F 84-94 16-18 124-156/71-100 93-100 Room Air-Room Air Intake and Output 09/11/22 09/12/22 09/12/22 19:59 03:59 11:59 Intake Total 1220 50 550 Output Total 600 Balance 1220 50 -50 Weight 81.511 kg Intake & Output: Intake & Output 09/11/22 09/12/22 09/12/22 19:59 03:59 11:59 Intake Total 1220 50 550 Output Total 600 Balance 1220 50 -50 Weight 81.511 kg Intake: IV 50 50 50 Merrem 1 gm In Sodium Chloride 50 50 50 0.9% 50 ml @ 100 mls/hr IV Q8H [facility] Rx#:[id number] Oral 1170 500 Output: Void Amount 600 Other: Meal Dinner Percent of Meal Consumed 100% Feeding Ability Independent Urine Appearance Clear Urine Color Yellow Urine Odor Normal Stool Size Small Stool Color Yellow Stool Consistency Watery Loose # Voids 2 # Bowel Movements 2 General appearance: no acute distress Head Head exam: Present atraumatic, normal inspection and normocephalic Eye Eye exam: Present EOMI Neck Neck exam: Present full ROM Neurological Exam Neurological exam: Present oriented X3 Additional comments: Sleepy and dozing off into conversation A/P Assessment and plan (1) Cellulitis of foot, right: Assessment and plan: Cultures with MSSA (not properly reported, discussed with micro and will have results faxed over to be scanned in chart), Enterobacter and Klebsiella. Continuing to clinically improve. Plan: Continue Meropenem When ready for discharge, switch to Levofloxacin PO Recommend total 14 day course Follow up with ID as needed Will continue to follow inpatient Status: Acute Time Spent With Patient Time: Total time spent is greater than 50% in coordination of care (as documented) at patient's floor/unit and/or counseling patient: Subsequent: Total time with patient: Less than 25 minutes MEDS/ALLERGIES Home Medications and Allergies Home Medications Medication Instructions Recorded Confirmed Type aspirin-sodium bicarbonate-citric 324 mg PO QDAY 04/22/22 09/09/22 History acid 324 mg effervescent tablet Bacillus coagulans-inulin 1 1 cap PO DAILY 06/21/22 09/09/22 History billion cell-250 mg capsule acetaminophen 500 mg tablet 500 mg PO Q4HP PRN Pain 09/09/22 09/09/22 History simethicone 80 mg chewable tablet 80 mg PO QID 09/09/22 09/09/22 History albuterol sulfate 90 mcg/actuation 2 puff inhalation Q6H PRN 09/11/22 Rx aerosol inhaler Shortness Of Breath #1 g amlodipine 5 mg tablet 5 mg PO BID #60 tabs 09/11/22 Rx atorvastatin 80 mg tablet 80 mg PO QDAY #30 tabs 09/11/22 Rx buspirone 5 mg tablet 10 mg PO BID #120 tabs 09/11/22 Rx cholecalciferol (vitamin D3) 125 125 mcg PO QDAY #30 tabs 09/11/22 Rx mcg (5,000 unit) tablet duloxetine 30 mg capsule,delayed 30 mg PO QDAY #30 caps 09/11/22 Rx release sprinkle gabapentin 300 mg capsule 300 mg PO TID #90 caps 09/11/22 Rx hydrocodone 5 mg-acetaminophen 325 1 tab PO Q6H PRN Pain #20 tabs 09/11/22 Rx mg tablet insulin glargine 100 unit/mL (3 38 unit (0.38 mL) subcut QAM #15 mL 09/11/22 Rx mL) subcutaneous pen insulin lispro 100 unit/mL 7 unit (0.07 mL) subcut AC #15 mL 09/11/22 Rx subcutaneous pen lisinopril 10 mg tablet 10 mg PO QAM #30 tabs 09/11/22 Rx metoclopramide HCl 5 mg tablet 5 mg PO ACHS PRN Nausea #30 tabs 09/11/22 Rx metoprolol succinate 100 mg 100 mg PO BID #60 tabs 09/11/22 Rx tablet,extended release 24 hr naloxone 4 mg/actuation nasal spray 4 mg intranasal Q2M PRN Opioid 09/11/22 Rx Overdose #1 ea pantoprazole 40 mg PO BID #60 tabs 09/11/22 Rx promethazine 25 mg tablet 25 mg PO Q6H PRN Nausea #20 tabs 09/11/22 Rx trazodone 100 mg PO HS PRN Insomnia #30 tabs 09/11/22 Rx Allergies Allergy/AdvReac Type Severity Reaction Status Date / Time cefepime Allergy Severe Swelling Verified 09/09/22 01:25 of Lip/Tongue/Throat peanut Allergy Mild Rash Verified 09/09/22 08:47
[2022-09-12] MEDS: METHOCARBAMOL 500 MG TABLET PO PRN ×2 (11:48→16:52)
[2022-09-12] MEDS: LEVOFLOXACIN 750 MG TABLET PO SCH (11:48)
[2022-09-12] MEDS ORDERED: MEROPENEM 1 GM in 0.9 % SODIUM CHLORIDE 50 ML IV SCH (21:00)
[2022-09-12] MEDS: ATORVASTATIN 40 MG TABLET PO SCH (21:02)
[2022-09-12] MEDS: INSULIN GLARGINE, HUMAN 1 UNIT/0.01 ML SQ SCH (21:03)
[2022-09-13] MEDS: ONDANSETRON 4 MG/2 ML VIAL IV PRN (00:15)
[2022-09-13] MEDS: HYDROmorphone 0.5 MG/0.5 ML SYRINGE IV PRN ×5 (00:15→19:39)
[2022-09-13] MEDS: METHOCARBAMOL 500 MG TABLET PO PRN ×2 (02:42→14:49)
[2022-09-13] MEDS: 0.9 % SODIUM CHLORIDE 10 ML SYRINGE IV SCH ×3 (05:05→21:05)
[2022-09-13 07:22] LABS: ALT/SGPT 18 U/L (<40); AST/SGOT 18 U/L (<32); Albumin 2.5 gm/dL (3.2-5.2); Albumin/Globulin Ratio 0.7 (1.0-2.3); Alkaline Phosphatase 173 U/L (39-117); Bilirubin,Direct < 0.2 mg/dL (0-0.3); Bilirubin,Total < 0.2 mg/dL (0.1-1.0); Blood Urea Nitrogen 41 mg/dL (6-20); Carbon Dioxide 19 mmol/L (22-30); Chloride 104 mmol/L (96-108); Globulin 3.6 gm/dL (2.2-3.7); Glomerular Filtration Rate 25; Glucose 61 mg/dL (70-105); Lactate Dehydrogenase 294 U/L (135-225); Phosphorous 4.8 mg/dL (2.5-4.5); Triglycerides 136 mg/dL (<150); Uric Acid 4.8 mg/dL (2.5-8.0)
[2022-09-13] MEDS: PANTOPRAZOLE 40 MG TABLET PO SCH ×2 (07:37→16:26)
[2022-09-13] MEDS: oxyCODONE IR 5 MG TABLET PO PRN ×2 (07:38→16:27)
[2022-09-13] MEDS: INSULIN LISPRO 1 UNIT/0.01 ML UNIT SQ SCH ×4 (07:42→21:04)
--- NOTE | 2022-09-13 08:34 | Internal Med Progress Note ---
SUBJECTIVE Subjective Patient information: Note initiated : 09/13/22 at 8:29 am Service Date, if different from initiated Date: [] Patient: Rebekah Angulo 41 y/o F admitted on 09/08/22. Chief Complaint: [] Interval history: Interval history: Ms. Angulo is a 41-year-old female with a history of type 1 diabetes mellitus, diabetic infections requiring lower extremity amputations, chronic kidney disease stage III, history of substance use disorder presented to the ED with concerns for a right foot infection at the site of prior partial foot amputation. The patient says that she had her foot partially amputated in [place] it was at [facility]. The patient was then discharged to a group home facility in [place], [place] and recently discharged to home. Recently there has been purulence and pain from a dehisced area at the surgical site on her right foot. In the emergency department, the patient was afebrile and vitals were normal except for moderate hypertension. There is no leukocytosis, hemoglobin was 9.5 which was higher than her baseline. Sodium level was 130, renal function was at her baseline. [id number] glucose check was initially 603 and improved to 290 in the ED. An x-ray of the right foot did not show any evidence of bone changes that would be concerning for osteomyelitis. Procalcitonin level was 0.13. CRP level was 1.1. The patient was given vancomycin IV and Zosyn. Hospital medicine asked to admit the patient. 09/10. Vital stable overnight. The patient is on a vancomycin IV and meropenem. Avoiding combination of vancomycin and Zosyn due to CKD and risk for acute kid dhaval injury. Right foot superficial wound cultures growing gram-negative bacilli. Blood cultures showing no growth to date. MRI right foot without contrast showed severe cellulitis in the midfoot and first and second metatarsal regions. There was increased intramedullary signal within the distal aspects of the first and second metatarsals concerning for osteomyelitis. Infectious disease consulted. 09/11. Vital stable overnight, afebrile. Satisfactory glycemic control. Infectious disease evaluated the patient yesterday, felt that the MRI scan results represented residual surgical changes. Wound culture grew Enterobacter cloacae sensitive levofloxacin and a gram-negative bacillus is still pending identification and antibiotic sensitivities. Infectious disease felt that if the gram-negative bacillus was sensitive to levofloxacin and the patient could discharge on oral levofloxacin. For now, the patient continues on meropenem until final culture results. Vancomycin IV discontinued. Dr. Harper saw the patient today, felt that wound cares were going well. The patient can follow-up at [facility] wound care clinic or at her hometown in [place] if she decides to leave the area after hospital discharge. 09/12 Patient complains of nausea and diarrhea overnight. hold colace. Mild chills. No fevers. BUN/creatinine bumped up today. We will hold home lisinopril. Peripheral edema noted. Patient volume status up also noted to have hypoalbuminemia. Will give Lasix x1 with albumin today. Monitor renal function and urine output. Decrease amlodipine to 5 mg daily for edema. 09/13 Patient complains of lower back pain paraspinal musculature. She is tender to palpation along the paraspinal musculature lower back, will use heat pad therapy. Patient's creatinine BUN jumped yesterday with no clear explanation. She does have 2+ pitting edema in the right lower extremity and was given Lasix with albumin x1 yesterday with good output and renal function same as yesterday. She did have a visitor the day before yesterday. Check UDS given her history. Nephrology consult. Review of Systems: denies headache/fever/chills/vomiting/chest or abdominal pain/cough/dyspnea. Otherwise see above. PHYSICAL EXAM General: Alert, Awake, No acute Distress Eyes/N/T: EOMI, no scleral icterus, Head/Neck: neck supple, full ROM, CV: RRR, No murmurs, Pulm: Clear b/l, no wheezing/rhonchi/rales, no respiratory distress Abd: soft, nontender, +BS x4, Ext: no clubbing/cyanosis. LLE BKA, RLE 2+ edema, Right foot wound covered in clean bandage. Neuro: Alert, no focal deficits, moves all extremities, , sensations intact b/l upper/lower Psychiatric: Skin: warm/dry, normal color Constitutional Vitals: Vital Signs Temp Pulse Resp BP Pulse Ox O2 Del Method 98.6 F 79 18 123/83 100 Room Air 09/13/22 08:00 09/13/22 08:00 09/13/22 08:00 09/13/22 08:00 09/13/22 08:00 09/13/22 08:00 Period Temp Pulse Resp BP Sys/Ding Pulse Ox O2 Del Method O2 Flow Rate Last 24 Hr 97.9 F-99.5 F 79-92 17-19 116-126/69-83 94-100 Room Air-Room Air Intake and Output 09/12/22 09/13/22 09/13/22 19:59 03:59 11:59 Intake Total 880 800 Output Total 1200 1300 Balance -320 -500 Weight 82.282 kg Intake & Output: Intake & Output 09/12/22 09/13/22 09/13/22 19:59 03:59 11:59 Intake Total 880 800 Output Total 1200 1300 Balance -320 -500 Weight 82.282 kg Intake: Oral 480 800 GI Tube Flush 400 Output: Void Amount 1200 1300 Other: Meal Dinner Percent of Meal Consumed 0% Feeding Ability Independent Urine Appearance Clear Clear Urine Color Yellow Dark Yellow Urine Odor Normal Normal Stool Size Moderate Stool Color Brown Stool Consistency Soft # Bowel Movements 1 OBJ DATA Labs 09/12/22 05:10 09/13/22 05:10 Labs: Abnormal Lab Results 09/13/22 09/12/22 09/12/22 05:10 05:16 05:10 RBC 2.85 L Hgb 8.0 L Hct 26.5 L MCHC 30.2 L Lymph # (Auto) Sodium 131 L 132 L Carbon Dioxide 19 L 17 L BUN 41 H 40 H Creatinine 2.3 H 2.2 H Glucose 61 L 214 H Hemoglobin A1c Calcium 8.0 L Phosphorus 4.8 H 4.7 H GGT 120 H 140 H Alkaline Phosphatase 173 H 208 H Lactate Dehydrogenase 294 H 298 H Albumin 2.5 L 2.3 L Albumin/Globulin Ratio 0.7 L 0.6 L Triglycerides 166 H 09/11/22 09/11/22 05:15 05:10 RBC 2.82 L Hgb 7.9 L Hct 25.7 L MCHC 30.7 L Lymph # (Auto) 1.21 L Sodium Carbon Dioxide BUN Creatinine Glucose Hemoglobin A1c 10.0 H Calcium Phosphorus GGT Alkaline Phosphatase Lactate Dehydrogenase Albumin Albumin/Globulin Ratio Triglycerides Meds: Medications Acetaminophen (Acetaminophen 325 Mg Tablet) 325 mg PO Q6HP PRN; Protocol PRN Reason: Per Pain Protocol/Fever > 101 Last Admin: 09/11/22 14:14 Dose: 325 mg Albuterol Sulfate (Albuterol Sulfate 2.5 Mg/3 Ml Nebulizer) 2.5 mg NEB Q2HP PRN PRN Reason: Shortness Of Breath Amlodipine Besylate (Amlodipine 5 Mg Tablet) 5 mg PO DAILY [facility] Aspirin (Aspirin 325 Mg Enteric Coated Tablet) 325 mg PO DAILY [facility] Last Admin: 09/12/22 09:44 Dose: 325 mg Atorvastatin Calcium (Atorvastatin 40 Mg Tablet) 80 mg PO HS [facility] Last Admin: 09/12/22 21:02 Dose: 80 mg Buspirone HCl (Buspirone 5 Mg Tablet) 10 mg PO BID [facility] Last Admin: 09/12/22 21:01 Dose: 10 mg Dextrose (Dextrose 50% 50 Ml Vial) 0 ml IV UD PRN PRN Reason: Per Sliding Scale Diagnostic Test (Pha) (Accu-Chek 1 Each Strip) 1 each FS ACHS [facility] Last Admin: 09/13/22 07:41 Dose: 1 each Diphenhydramine HCl (Diphenhydramine 50 Mg/Ml Vial) 25 mg IV Q4HP PRN PRN Reason: Itching Last Admin: 09/11/22 18:51 Dose: 25 mg Duloxetine HCl (Duloxetine 30 Mg Capsule) 30 mg PO DAILY [facility] Last Admin: 09/12/22 09:45 Dose: 30 mg Gabapentin (Gabapentin 300 Mg Capsule) 300 mg PO TID [facility] Last Admin: 09/12/22 21:01 Dose: 300 mg Glucose (Dextrose 31 Gm Oral.Susp) 15 gm PO PRN PRN PRN Reason: Hypoglycemia Heparin Sodium (Porcine) (Heparin 5,000 Unit/Ml Vial) 5,000 unit SQ Q12 [facility] Last Admin: 09/12/22 21:00 Dose: 5,000 unit Hydralazine HCl (Hydralazine 20 Mg/Ml Vial) 10 mg IV Q4-6HP PRN PRN Reason: Hypertension Last Admin: 09/09/22 18:21 Dose: 10 mg Hydralazine HCl (Hydralazine 20 Mg/Ml Vial) 0 mg IV Q2HP PRN PRN Reason: Hypertension Hydromorphone HCl (Hydromorphone 0.5 Mg/0.5 Ml Syringe) 0.5 mg IV Q2HP PRN; Protocol PRN Reason: Per Pain Protocol Last Admin: 09/13/22 05:04 Dose: 0.5 mg Hydroxyzine HCl (Hydroxyzine 25 Mg Tablet) 25 mg PO TIDP PRN PRN Reason: Allergic Symptoms Last Admin: 09/10/22 13:26 Dose: 25 mg Insulin Glargine (Insulin Glargine, Human 1 Unit/0.01 Ml) 20 unit SQ HS [facility] Last Admin: 09/12/22 21:03 Dose: 20 unit Insulin Human Lispro (Insulin Lispro 1 Unit/0.01 Ml Unit) 0 unit SQ ACHS [facility]; Protocol Last Admin: 09/13/22 07:42 Dose: Not Given Labetalol HCl (Labetalol 5 Mg/Ml Ml) 10 mg IV Q2HP PRN PRN Reason: Hypertension Lactulose (Lactulose 20 Gm/30 Ml Oral.Carey) 10 gm PO DAILYP PRN PRN Reason: Constipation Levofloxacin (Levofloxacin 750 Mg Tablet) 750 mg PO Q48H [facility] Last Admin: 09/12/22 11:48 Dose: 750 mg Lisinopril (Lisinopril 10 Mg Tablet) 10 mg PO DAILY [facility] Last Admin: 09/12/22 09:43 Dose: 10 mg Methocarbamol (Methocarbamol 500 Mg Tablet) 500 mg PO TIDP PRN PRN Reason: Muscle Spasm Last Admin: 09/13/22 02:42 Dose: 500 mg Metoprolol Succinate (Metoprolol Succinate 50 Mg Tab.Xl.24h) 100 mg PO BID [facility] Last Admin: 09/12/22 21:01 Dose: 100 mg Morphine Sulfate (Morphine 15 Mg Tab.Sr.12h) 15 mg PO BID [facility]; Protocol Last Admin: 09/12/22 21:01 Dose: 15 mg Nicotine (Nicotine 14 Mg Patch) 14 mg TOPICAL DAILY@1000 [facility] Last Admin: 09/12/22 09:44 Dose: 14 mg Ondansetron HCl (Ondansetron 4 Mg/2 Ml Vial) 4 mg IV Q4HP PRN; Protocol PRN Reason: Nausea And Vomiting Last Admin: 09/13/22 00:15 Dose: 4 mg Oxycodone HCl (Oxycodone Ir 5 Mg Tablet) 10 mg PO Q6HP PRN; Protocol PRN Reason: Per Pain Protocol Last Admin: 09/13/22 07:38 Dose: 10 mg Pantoprazole Sodium (Pantoprazole 40 Mg Tablet) 40 mg PO BIDAC [facility] Last Admin: 09/13/22 07:37 Dose: 40 mg Gabapentin Enacarbil 300 Mg Tablet Extended Release 1 dose PO TID [facility] Last Admin: 09/12/22 21:04 Dose: Not Given Prochlorperazine (Prochlorperazine 10 Mg/2 Ml Vial) 10 mg IV Q4HP PRN PRN Reason: Nausea And Vomiting Last Admin: 09/12/22 07:53 Dose: 10 mg Senna (Sennosides 1 Tablet) 2 tab PO HSP PRN PRN Reason: Constipation Last Admin: 09/10/22 08:58 Dose: 2 tab Simethicone (Simethicone 80 Mg Tab.Chew) 80 mg PO QID [facility] Last Admin: 09/12/22 21:01 Dose: 80 mg Sodium Chloride (0.9 % Sodium Chloride 10 Ml Syringe) 10 ml IV Q8 [facility] Last Admin: 09/13/22 05:05 Dose: 10 ml Trazodone HCl (Trazodone Hcl 100 Mg Tablet) 100 mg PO HSP PRN PRN Reason: Insomnia Last Admin: 09/11/22 21:57 Dose: 100 mg A/P Narrative A/P Narrative: A: #Right diabetic foot infection at surgical incision wound dehiscence: -wound growing MSSA/Enterobacter/Klebsiella #DM1: A1c 10.0 #DIONE on CKD IIIb: - #Peripheral edema/Hypoalbuminemia #metabolic acidosis: 2/2 renal dz #Chronic anemia: stable #Hyponatremia/Hyperphos: #h/o Left BKA #HTN/HLD: #Chr pain, abd: *Substance abuse: per records fentanyl/meth. last used meth was April, denies IV. MJ use *GERD: *Anxiety: Plan: -ID following, transitioned to levoquin, total abx course of 14-days, f/u in ID clinic -Follow blood cultures: NGTD. -Monitor hemoglobin and renal function -Analgesics, avoid NSAIDs. -Added baclofen as needed for muscle spasms. -Lantus 20 units HS and SSI medium dose. -Continue home amlodipine(decrease to 5mg for edema)/toprol, aspirin/atorvast atin, buspirone/Cymbalta -renally dose gabapentin -hold ACEI for dione -Nephrology consult -Referral to the wireless telegrapher for diabetes management -pt needs new scripts for all her home meds -ppx: Heparin SQ / home ppi CODE STATUS: Real Estate Salesperson Spent With Patient Time: Total time spent is greater than 50% in coordination of care (as documented) at patient's floor/unit and/or counseling patient: Subsequent: Total time with patient: 50 - 65 Minutes QUALITY Stroke Symptom Onset Unknown: No VTE Deep Vein Thrombosis/Pulmonary Embolism Present on Admission: No
[2022-09-13] MEDS: amLODIPine 5 MG TABLET PO SCH (09:13)
[2022-09-13] MEDS: SIMETHICONE 80 MG TAB.CHEW PO SCH ×4 (09:13→21:02)
[2022-09-13] MEDS: busPIRone 5 MG TABLET PO SCH ×2 (09:13→21:02)
[2022-09-13] MEDS: morphine 15 MG TAB.SR.12H PO SCH ×2 (09:13→21:02)
[2022-09-13] MEDS: GABAPENTIN 300 MG CAPSULE PO SCH ×2 (09:13→21:02)
[2022-09-13] MEDS: NICOTINE 14 MG PATCH TOPICAL SCH (09:14)
[2022-09-13] MEDS: ASPIRIN 325 MG ENTERIC COATED TABLET PO SCH (09:14)
[2022-09-13] MEDS: HEPARIN 5,000 UNIT/ML VIAL SQ SCH ×2 (09:14→21:03)
[2022-09-13] MEDS: METOPROLOL SUCCINATE 50 MG TAB.XL.24H PO SCH ×2 (09:14→21:02)
[2022-09-13] MEDS: DULoxetine 30 MG CAPSULE PO SCH (09:14)
[2022-09-13] MEDS: GABAPENTIN ENACARBIL 300 MG PO SCH ×3 (09:14→21:06)
--- NOTE | 2022-09-13 09:16 | Nephrology Consult Note ---
HPI Date of Consult Consult Date: 09/13/22 Requesting physician: Haider Lopez Primary Care Provider: PCP No Consult Narrative Chief complaint: Right foot pain Reason for consult: Acute kidney injury History of present illness: Rebekah Angulo is a 41-year-old female with type 1 diabetes mellitus, diabetic infections requiring lower extremity amputations, chronic kidney disease stage III, liver cirrhosis, history of substance use disorder presented to the ED on 09/08/22 with concerns for a right foot infection at the site of prior partial foot amputation. She had right foot partially amputated in [place] at the [facility]. The patient was then discharged to a custodial facility in [place], [place] and recently discharged to home. Renal function was at her baseline in ED. The patient was given vancomycin IV and Zosyn. Nephrology consultation was requested for acute kidney injury. cc:: CC: Ruel Garnica MD Constitutional Constitutional: Absent anorexia or weakness EENT Nose, mouth and throat: Absent nasal congestion or sore throat Cardiovascular Cardiovascular: Absent chest pain or palpatations Respiratory Respiratory: Absent dyspnea or wheezing Gastrointestinal Gastrointestinal: Absent nausea or vomiting Genitourinary Genitourinary: Absent dysuria or hematuria Musculoskeletal Additional comments: right foot dressed Integumentary Integumentary: Present wounds; Absent rash Neurological Neurological: Present weakness; Absent confusion Psychiatric Psychiatric: Present anxiety Additional comments: Crying during my visit. Reports inadequate pain control. Hematologic/Lymphatic Hematologic/Lymphatic: Absent easy bleeding or easy bruising Allergic/Immunologic Allergic/Immunologic: Absent tongue swelling or uticaria PFSH PFSH All Active Problems (Updated 09/13/22 @ 09:11 by Ely Heredia MD) Acute renal failure superimposed on stage 3b chronic kidney disease (Acute) Abdominal pain, diffuse (Acute) Anemia (Acute) Cirrhosis (Acute) Hematemesis (Acute) Cellulitis of foot, right (Acute) DKA (diabetic ketoacidosis) (Acute) Migraine headache (Acute) Stage 1 acute kidney injury (Acute) DKA (diabetic ketoacidosis) (Acute) Elevated brain natriuretic peptide (BNP) level (Acute) Edema of face (Acute) SOB (shortness of breath) (Acute) Anasarca (Acute) Methamphetamine abuse (Acute) Acute on chronic kidney failure (Acute) DKA, type 2 (Acute) Cirrhosis of liver (Acute) Anemia (Acute) Hyperglycemia due to type 2 diabetes mellitus (Acute) Abdominal pain (Acute) Social History smoking status: Current every day smoker smoking status start date: 03/01/91 MEDS/ALLERGIES Home Medications and Allergies Home Medications Medication Instructions Recorded Confirmed Type aspirin-sodium bicarbonate-citric 324 mg PO QDAY 04/22/22 09/09/22 History acid 324 mg effervescent tablet Bacillus coagulans-inulin 1 1 cap PO DAILY 06/21/22 09/09/22 History billion cell-250 mg capsule acetaminophen 500 mg tablet 500 mg PO Q4HP PRN Pain 09/09/22 09/09/22 History simethicone 80 mg chewable tablet 80 mg PO QID 09/09/22 09/09/22 History albuterol sulfate 90 mcg/actuation 2 puff inhalation Q6H PRN 09/11/22 Rx aerosol inhaler Shortness Of Breath #1 g amlodipine 5 mg tablet 5 mg PO BID #60 tabs 09/11/22 Rx atorvastatin 80 mg tablet 80 mg PO QDAY #30 tabs 09/11/22 Rx buspirone 5 mg tablet 10 mg PO BID #120 tabs 09/11/22 Rx cholecalciferol (vitamin D3) 125 125 mcg PO QDAY #30 tabs 09/11/22 Rx mcg (5,000 unit) tablet duloxetine 30 mg capsule,delayed 30 mg PO QDAY #30 caps 09/11/22 Rx release sprinkle gabapentin 300 mg capsule 300 mg PO TID #90 caps 09/11/22 Rx hydrocodone 5 mg-acetaminophen 325 1 tab PO Q6H PRN Pain #20 tabs 09/11/22 Rx mg tablet insulin glargine 100 unit/mL (3 38 unit (0.38 mL) subcut QAM #15 mL 09/11/22 Rx mL) subcutaneous pen insulin lispro 100 unit/mL 7 unit (0.07 mL) subcut AC #15 mL 09/11/22 Rx subcutaneous pen lisinopril 10 mg tablet 10 mg PO QAM #30 tabs 09/11/22 Rx metoclopramide HCl 5 mg tablet 5 mg PO ACHS PRN Nausea #30 tabs 09/11/22 Rx metoprolol succinate 100 mg 100 mg PO BID #60 tabs 09/11/22 Rx tablet,extended release 24 hr naloxone 4 mg/actuation nasal spray 4 mg intranasal Q2M PRN Opioid 09/11/22 Rx Overdose #1 ea pantoprazole 40 mg PO BID #60 tabs 09/11/22 Rx promethazine 25 mg tablet 25 mg PO Q6H PRN Nausea #20 tabs 09/11/22 Rx trazodone 100 mg PO HS PRN Insomnia #30 tabs 09/11/22 Rx Allergies Allergy/AdvReac Type Severity Reaction Status Date / Time cefepime Allergy Severe Swelling Verified 09/09/22 01:25 of Lip/Tongue/Throat peanut Allergy Mild Rash Verified 09/09/22 08:47 Physical Examination Vital Signs Vital signs: Temp Pulse Resp BP Pulse Ox O2 Del Method 98.6 F 79 18 123/83 100 Room Air 09/13/22 08:00 09/13/22 08:00 09/13/22 08:00 09/13/22 08:00 09/13/22 08:00 09/13/22 08:00 General Appearance General appearance: chronically ill and fatigue EENT EENT: mucous membranes moist Respiratory Respiratory: clear Cardiovascular Cardiology: edema, regular rate and regular rhythm Gastrointestinal Gastrointestinal: no tenderness Integumentary Integumentary: no rash Neurologic Neurologic: no focal deficit and alert and oriented x3 Musculoskeletal Musculoskeletal: deformities Psychiatric Psychiatric: mood/affect appropriate and cooperative Results Lab Results 09/12/22 05:10 09/13/22 05:10 Lab results: Most recent lab results Calcium 8.0 mg/dL (8.6-10.4) L 09/13/22 05:10 Phosphorus 4.8 mg/dL (2.5-4.5) H 09/13/22 05:10 Magnesium 1.8 mg/dL (1.6-2.5) 09/13/22 05:10 A/P Assessment and plan (1) Acute renal failure superimposed on stage 3b chronic kidney disease: Assessment and plan: Rebekah Angulo is a 41-year-old female with type 1 diabetes mellitus, diabetic infections requiring lower extremity amputations, chronic kidney disease stage III, liver cirrhosis, history of substance use disorder presented to the ED on 09/08/22 with concerns for a right foot infection at the site of prior partial foot amputation. She had right foot partially amputated in [place] at the [facility]. The patient was then discharged to a custodial facility in [place], [place] and recently discharged to home. Renal function was at her baseline in ED. The patient was given vancomycin IV and Zosyn. Nephrology consultation was requested for acute kidney injury. Chronic kidney disease stage 3b with suspected acute kidney injury, mild hyponatremia, metabolic acidosis and fluid overload. There is no recent history of IV contrast administration or NSAID use. Intravascular volume depletion unlikely. Acute infectious (immune complex) glomerulonephritis, acute interstitial nephritis or acute toxic nephropathy due to medications (an tibiotics) considered, but unlikely. She lives in [place]. 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 No history of a kidney biopsy. She has diabetes mellitus type 1 for ~13 years. Chronic kidney disease stage 3b is likely diabetic nephropathy. Previous Work up: Urinalysis on 06/20/22: Yellow, Clear, pH 7.0, SG 1.022, protein >500, blood 0.03, leukocyte esterase negative, urine WBC. CT Abdomen and Pelvis without contrast on 06/28/22: Both kidneys are moderately enlarged: Both are 14 cm in length and there is moderate renal edema and perinephric stranding. Progress: Serum creatinine changed from 2.2 to 2.3 in the past 24 hours. Baseline serum creatinine: 1.2-1.7 in May 2022, 1.6 (eGFR 39) on 09/09/22. Urine output: 1300 ml reported in the past 24 hours. Metabolic acidosis. Hyponatremia, mild. Fluid overload. No uremic symptoms. Recommendations/Plan: Work up with urinalysis, urine eosinophil smear, total protein and creatinine. No hemodialysis need. Loop diuretics as needed. Sodium Bicarbonate will be avoided due to fluid overload. Avoid NSAIDs, nephrotoxic medications and IV contrast. Hold RAMONA/ARB. Monitor BMP and urine output. Status: Acute Time Spent With Patient Time: Total time spent is greater than 50% in coordination of care (as documented) at patient's floor/unit and/or counseling patient:
[2022-09-13 11:28] LABS: Appearance,Urine HAZY (Clear); Bacteria,Urine FEW /hpf (0); Bilirubin,Urine Negative (Negative); Color,Urine YELLOW; Culture Indicated,Urine No; Glucose,Urine (UA) 150 mg/dL (Negative); Ketones,Urine Negative (Negative); Leukocyte Esterase,Urine Negative /uL (Negative); Mucus,Urine FEW /hpf; Nitrate,Urine Negative (Negative); Protein,Urine >=500 mg/dL (Negative); Specific Gravity,Urine 1.014 (1.000-1.035); Urine Blood Negative (Negative); Urine Granular Cast 5 /lph (0-0); Urine Hyaline Cast 12 /lph (0-2); Urine RBC 4 /hpf (0-3); Urine Squamous Epithelial Cell 13 /hpf (0-4); Urine WBC 2 /hpf (0-4); Urobilinogen,Urine Negative
[2022-09-13 11:51] LABS: Amphetamine Screen,Urine None detected; Barbiturate Screen,Urine None detected; Benzodiazepines Screen,Urine None detected; Cannabinoid Screen,Urine None detected; Cocaine Screen,Urine None detected; Opiate Screen,Urine Suspect Positive; Oxycodone, Urine Screen Suspect Positive; Phencyclidine Screen,Urine None detected
[2022-09-13] MEDS: traZODone HCL 100 MG TABLET PO PRN (21:01)
[2022-09-13] MEDS: ATORVASTATIN 40 MG TABLET PO SCH (21:02)
[2022-09-13] MEDS: INSULIN GLARGINE, HUMAN 1 UNIT/0.01 ML SQ SCH (21:04)
[2022-09-14] MEDS: oxyCODONE IR 5 MG TABLET PO PRN ×2 (00:19→07:40)
[2022-09-14] MEDS: METHOCARBAMOL 500 MG TABLET PO PRN ×2 (00:20→11:30)
[2022-09-14] MEDS: HYDROmorphone 0.5 MG/0.5 ML SYRINGE IV PRN (04:05)
[2022-09-14] MEDS: 0.9 % SODIUM CHLORIDE 10 ML SYRINGE IV SCH (04:05)
[2022-09-14 07:07] LABS: ALT/SGPT 17 U/L (<40); AST/SGOT 21 U/L (<32); Albumin 2.4 gm/dL (3.2-5.2); Albumin/Globulin Ratio 0.8 (1.0-2.3); Alkaline Phosphatase 156 U/L (39-117); Bilirubin,Direct < 0.2 mg/dL (0-0.3); Bilirubin,Total < 0.2 mg/dL (0.1-1.0); Blood Urea Nitrogen 42 mg/dL (6-20); Calcium 8.2 mg/dL (8.6-10.4); Carbon Dioxide 19 mmol/L (22-30); Chloride 108 mmol/L (96-108); Globulin 3.2 gm/dL (2.2-3.7); Glomerular Filtration Rate 28; Glucose 50 mg/dL (70-105); Lactate Dehydrogenase 267 U/L (135-225); Phosphorous 4.9 mg/dL (2.5-4.5); Triglycerides 184 mg/dL (<150)
--- NOTE | 2022-09-14 07:35 | Nephrology Progress Note ---
SUBJECTIVE Subjective Patient information: Note initiated : 09/14/22 at 7:32 am Patient: Rebekah Angulo 41 y/o F admitted on 09/08/22. Chief Complaint: Leg pain Pertinent ROS: Weakness Edema Constitutional Vitals: Vital Signs Temp Pulse Resp BP Pulse Ox O2 Del Method 98.2 F 69 17 119/75 98 Room Air 09/14/22 03:48 09/14/22 03:48 09/14/22 03:48 09/14/22 03:48 09/14/22 03:48 09/14/22 03:48 Period Temp Pulse Resp BP Sys/Ding Pulse Ox O2 Del Method O2 Flow Rate Last 24 Hr 98.2 F-98.8 F 69-79 17-18 108-127/68-83 95-100 Room Air-Room Air Intake and Output 09/13/22 09/14/22 09/14/22 19:59 03:59 11:59 Intake Total 0 500 Output Total 1000 450 Balance -1000 50 Weight 179 lb 11.2 oz Intake & Output: Intake & Output 09/13/22 09/14/22 09/14/22 19:59 03:59 11:59 Intake Total 0 500 Output Total 1000 450 Balance -1000 50 Weight 179 lb 11.2 oz Intake: Oral 0 500 Output: Void Amount 1000 450 Other: Meal Dinner Percent of Meal Consumed 75% Urine Appearance Clear Clear Urine Color Yellow Yellow Pale Urine Odor Normal Normal Stool Size Large Stool Color Green Stool Consistency Normal for Patient # Voids 1 General appearance: cooperative and no acute distress Head Head exam: Present normal inspection Eye Eye exam: Present normal appearance ENT ENT exam: Present mucous membranes moist Respiratory Respiratory exam: Absent respiratory distress Cardiovascular Cardiovascular exam: Present normal rate and rhythm GI/Abdominal GI/Abdominal exam: Present soft; Absent tenderness Extremities Exam Extremities exam: Absent joint swelling or pedal edema Neurological Exam Neurological exam: Present alert and oriented X3 Psychiatric Psychiatric exam: Present normal affect and normal mood Skin Skin exam: Present warm; Absent rash A/P Assessment and plan (1) Acute renal failure superimposed on stage 3b chronic kidney disease: Assessment and plan: Rebekah Angulo is a 41-year-old female with type 1 diabetes mellitus, diabetic infections requiring lower extremity amputations, chronic kidney disease stage III, liver cirrhosis, history of substance use disorder presented to the ED on 09/08/22 with concerns for a right foot infection at the site of prior partial foot amputation. She had right foot partially amputated in [place] at the [facility]. The patient was then discharged to a care home facility in [place], [place] and recently discharged to home. Renal function was at her baseline in ED. The patient was given vancomycin IV and Zosyn. Nephrology consultation was requested for acute kidney injury. Chronic kidney disease stage 3b with suspected acute kidney injury, mild hyponatremia, metabolic acidosis and fluid overload. There is no recent history of IV contrast administration or NSAID use. Intravascular volume depletion unlikely. Acute infectious (immune complex) glomerulonephritis, acute in terstitial nephritis or acute toxic nephropathy due to medications (antibiotics) considered, but unlikely. She lives in [place]. 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 No history of a kidney biopsy. She has diabetes mellitus type 1 for ~13 years. Chronic kidney disease stage 3b is likely diabetic nephropathy. Work up: Urinalysis on 09/20/22: Yellow, Hazy, pH 5.0, SG 1.014, protein >500, blood 0.03, leukocyte esterase negative. Previous Work up: Urinalysis on 06/20/22: Yellow, Clear, pH 7.0, SG 1.022, protein >500, blood 0.03, leukocyte esterase negative. CT Abdomen and Pelvis without contrast on 06/28/22: Both kidneys are moderately enlarged: Both are 14 cm in length and there is moderate renal edema and perinephric stranding. Progress: Serum creatinine changed from 2.3 to 2.1 in the past 24 hours. Baseline serum creatinine: 1.2-1.7 in May 2022, 1.6 (eGFR 39) on 09/09/22. Urine output: 2850 ml reported in the past 24 hours. Metabolic acidosis, mild. Hyponatremia, mild. Fluid overload. No uremic symptoms. Recommendations/Plan: No hemodialysis need. Loop diuretics as needed. Sodium Bicarbonate avoided due to fluid overload. Planning to return to [place]. Status: Acute Time Spent With Patient Time: Total time spent is greater than 50% in coordination of care (as documented) at patient's floor/unit and/or counseling patient:
[2022-09-14] MEDS: PANTOPRAZOLE 40 MG TABLET PO SCH (07:39)
[2022-09-14] MEDS: INSULIN LISPRO 1 UNIT/0.01 ML UNIT SQ SCH ×2 (07:43→11:38)
--- NOTE | 2022-09-14 07:57 | Internal Med Progress Note ---
SUBJECTIVE Subjective Patient information: Note initiated : 09/14/22 at 7:56 am Service Date, if different from initiated Date: [] Patient: Rebekah Angulo 41 y/o F admitted on 09/08/22. Chief Complaint: [] Interval history: Interval history: Ms. Angulo is a 41-year-old female with a history of type 1 diabetes mellitus, diabetic infections requiring lower extremity amputations, chronic kidney disease stage III, history of substance use disorder presented to the ED with concerns for a right foot infection at the site of prior partial foot amputation. The patient says that she had her foot partially amputated in [place], [facility] it was at [facility]. The patient was then discharged to a assisted facility in [place], [place] and recently discharged to home. Recently there has been purulence and pain from a dehisced area at the surgical site on her right foot. In the emergency department, the patient was afebrile and vitals were normal except for moderate hypertension. There is no leukocytosis, hemoglobin was 9.5 which was higher than her baseline. Sodium level was 130, renal function was at her baseline. [id number] glucose check was initially 603 and improved to 290 in the ED. An x-ray of the right foot did not show any evidence of bone changes that would be concerning for osteomyelitis. Procalcitonin level was 0.13. CRP level was 1.1. The patient was given vancomycin IV and Zosyn. Hospital medicine asked to admit the patient. 09/10. Vital stable overnight. The patient is on a vancomycin IV and meropenem. Avoiding combination of vancomycin and Zosyn due to CKD and risk for acute kid dhaval injury. Right foot superficial wound cultures growing gram-negative bacilli. Blood cultures showing no growth to date. MRI right foot without contrast showed severe cellulitis in the midfoot and first and second metatarsal regions. There was increased intramedullary signal within the distal aspects of the first and second metatarsals concerning for osteomyelitis. Infectious disease consulted. 09/11. Vital stable overnight, afebrile. Satisfactory glycemic control. Infectious disease evaluated the patient yesterday, felt that the MRI scan results represented residual surgical changes. Wound culture grew Enterobacter cloacae sensitive levofloxacin and a gram-negative bacillus is still pending identification and antibiotic sensitivities. Infectious disease felt that if the gram-negative bacillus was sensitive to levofloxacin and the patient could discharge on oral levofloxacin. For now, the patient continues on meropenem until final culture results. Vancomycin IV discontinued. Dr. Harper saw the patient today, felt that wound cares were going well. The patient can follow-up at [facility] wound care clinic or at her hometown in [place] if she decides to leave the area after hospital discharge. 09/12 Patient complains of nausea and diarrhea overnight. hold colace. Mild chills. No fevers. BUN/creatinine bumped up today. We will hold home lisinopril. Peripheral edema noted. Patient volume status up also noted to have hypoalbuminemia. Will give Lasix x1 with albumin today. Monitor renal function and urine output. Decrease amlodipine to 5 mg daily for edema. 09/13 Patient complains of lower back pain paraspinal musculature. She is tender to palpation along the paraspinal musculature lower back, will use heat pad therapy. Patient's creatinine BUN jumped yesterday with no clear explanation. She does have 2+ pitting edema in the right lower extremity and was given Lasix with albumin x1 yesterday with good output and renal function same as yesterday. She did have a visitor the day before yesterday. Check UDS given her history. Nephrology consult. 09/14 Patient seems a feeling better today. She states that since being off the vancomycin she feels better as she was feeling itchy on it and generalized poor feeling. Patient seems to be doing well on Levaquin. Renal function starting to now downtrend mildly. Review of Systems: denies headache/fever/chills/vomiting/chest or abdominal pain/cough/dyspnea. Otherwise see above. PHYSICAL EXAM General: Alert, Awake, No acute Distress Eyes/N/T: EOMI, no scleral icterus, Head/Neck: neck supple, full ROM, CV: RRR, No murmurs, Pulm: Clear b/l, no wheezing/rhonchi/rales, no respiratory distress Abd: soft, nontender, +BS x4, Ext: no clubbing/cyanosis. LLE BKA, RLE 2+ edema, Right foot wound covered in clean bandage. Neuro: Alert, no focal deficits, moves all extremities, , sensations intact b/l upper/lower Psychiatric: Skin: warm/dry, normal color Constitutional Vitals: Vital Signs Temp Pulse Resp BP Pulse Ox O2 Del Method 98.2 F 69 17 119/75 98 Room Air 09/14/22 03:48 09/14/22 03:48 09/14/22 03:48 09/14/22 03:48 09/14/22 03:48 09/14/22 03:48 Period Temp Pulse Resp BP Sys/Ding Pulse Ox O2 Del Method O2 Flow Rate Last 24 Hr 98.2 F-98.8 F 69-79 17-18 108-127/68-83 95-100 Room Air-Room Air Intake and Output 09/13/22 09/14/22 09/14/22 19:59 03:59 11:59 Intake Total 0 500 Output Total 1000 450 Balance -1000 50 Weight 81.511 kg Intake & Output: Intake & Output 09/13/22 09/14/22 09/14/22 19:59 03:59 11:59 Intake Total 0 500 Output Total 1000 450 Balance -1000 50 Weight 81.511 kg Intake: Oral 0 500 Output: Void Amount 1000 450 Other: Meal Dinner Percent of Meal Consumed 75% Urine Appearance Clear Clear Urine Color Yellow Yellow Pale Urine Odor Normal Normal Stool Size Large Stool Color Green Stool Consistency Normal for Patient # Voids 1 OBJ DATA Labs 09/12/22 05:10 09/14/22 05:15 Labs: Abnormal Lab Results 09/14/22 09/13/22 09/13/22 05:15 10:00 10:00 RBC Hgb Hct MCHC Sodium Carbon Dioxide 19 L BUN 42 H Creatinine 2.1 H Glucose 50 L Calcium 8.2 L Phosphorus 4.9 H GGT 108 H Alkaline Phosphatase 156 H Lactate Dehydrogenase 267 H Total Protein 5.6 L Albumin 2.4 L Albumin/Globulin Ratio 0.8 L Triglycerides 184 H Urine Appearance Hazy A Urine Protein >=500 A Urine Glucose (UA) 150 A Urine RBC 4 H Ur Squamous Epith Cells 13 H Urine Bacteria Few A Hyaline Casts 12 H Granular Casts 5 H Urine Mucus Few A Urine Opiates Screen Suspect positive A Ur Oxycodone Screen Suspect positive A 09/13/22 09/12/22 09/12/22 05:10 05:16 05:10 RBC 2.85 L Hgb 8.0 L Hct 26.5 L MCHC 30.2 L Sodium 131 L 132 L Carbon Dioxide 19 L 17 L BUN 41 H 40 H Creatinine 2.3 H 2.2 H Glucose 61 L 214 H Calcium 8.0 L Phosphorus 4.8 H 4.7 H GGT 120 H 140 H Alkaline Phosphatase 173 H 208 H Lactate Dehydrogenase 294 H 298 H Total Protein Albumin 2.5 L 2.3 L Albumin/Globulin Ratio 0.7 L 0.6 L Triglycerides 166 H Urine Appearance Urine Protein Urine Glucose (UA) Urine RBC Ur Squamous Epith Cells Urine Bacteria Hyaline Casts Granular Casts Urine Mucus Urine Opiates Screen Ur Oxycodone Screen Meds: Medications Acetaminophen (Acetaminophen 325 Mg Tablet) 325 mg PO Q6HP PRN; Protocol PRN Reason: Per Pain Protocol/Fever > 101 Last Admin: 09/11/22 14:14 Dose: 325 mg Albuterol Sulfate (Albuterol Sulfate 2.5 Mg/3 Ml Nebulizer) 2.5 mg NEB Q2HP PRN PRN Reason: Shortness Of Breath Amlodipine Besylate (Amlodipine 5 Mg Tablet) 5 mg PO DAILY [facility] Last Admin: 09/13/22 09:13 Dose: 5 mg Aspirin (Aspirin 325 Mg Enteric Coated Tablet) 325 mg PO DAILY [facility] Last Admin: 09/13/22 09:14 Dose: 325 mg Atorvastatin Calcium (Atorvastatin 40 Mg Tablet) 80 mg PO HS [facility] Last Admin: 09/13/22 21:02 Dose: 80 mg Buspirone HCl (Buspirone 5 Mg Tablet) 10 mg PO BID [facility] Last Admin: 09/13/22 21:02 Dose: 10 mg Dextrose (Dextrose 50% 50 Ml Vial) 0 ml IV UD PRN PRN Reason: Per Sliding Scale Diagnostic Test (Pha) (Accu-Chek 1 Each Strip) 1 each FS ACHS [facility] Last Admin: 09/14/22 07:43 Dose: 1 each Diphenhydramine HCl (Diphenhydramine 50 Mg/Ml Vial) 25 mg IV Q4HP PRN PRN Reason: Itching Last Admin: 09/11/22 18:51 Dose: 25 mg Duloxetine HCl (Duloxetine 30 Mg Capsule) 30 mg PO DAILY [facility] Last Admin: 09/13/22 09:14 Dose: 30 mg Gabapentin (Gabapentin 300 Mg Capsule) 300 mg PO BID [facility] Last Admin: 09/13/22 21:02 Dose: 300 mg Glucose (Dextrose 31 Gm Oral.Susp) 15 gm PO PRN PRN PRN Reason: Hypoglycemia Heparin Sodium (Porcine) (Heparin 5,000 Unit/Ml Vial) 5,000 unit SQ Q12 [facility] Last Admin: 09/13/22 21:03 Dose: 5,000 unit Hydralazine HCl (Hydralazine 20 Mg/Ml Vial) 10 mg IV Q4-6HP PRN PRN Reason: Hypertension Last Admin: 09/09/22 18:21 Dose: 10 mg Hydralazine HCl (Hydralazine 20 Mg/Ml Vial) 0 mg IV Q2HP PRN PRN Reason: Hypertension Hydromorphone HCl (Hydromorphone 0.5 Mg/0.5 Ml Syringe) 0.5 mg IV Q3HP PRN; Protocol PRN Reason: Per Pain Protocol Last Admin: 09/14/22 04:05 Dose: 0.5 mg Hydroxyzine HCl (Hydroxyzine 25 Mg Tablet) 25 mg PO TIDP PRN PRN Reason: Allergic Symptoms Last Admin: 09/10/22 13:26 Dose: 25 mg Insulin Glargine (Insulin Glargine, Human 1 Unit/0.01 Ml) 20 unit SQ HS [facility] Last Admin: 09/13/22 21:04 Dose: 20 unit Insulin Human Lispro (Insulin Lispro 1 Unit/0.01 Ml Unit) 0 unit SQ ACHS [facility]; Protocol Last Admin: 09/14/22 07:43 Dose: Not Given Labetalol HCl (Labetalol 5 Mg/Ml Ml) 10 mg IV Q2HP PRN PRN Reason: Hypertension Lactulose (Lactulose 20 Gm/30 Ml Oral.Carey) 10 gm PO DAILYP PRN PRN Reason: Constipation Levofloxacin (Levofloxacin 750 Mg Tablet) 750 mg PO Q48H [facility] Last Admin: 09/12/22 11:48 Dose: 750 mg Methocarbamol (Methocarbamol 500 Mg Tablet) 500 mg PO TIDP PRN PRN Reason: Muscle Spasm Last Admin: 09/14/22 00:20 Dose: 500 mg Metoprolol Succinate (Metoprolol Succinate 50 Mg Tab.Xl.24h) 100 mg PO BID [facility] Last Admin: 09/13/22 21:02 Dose: 100 mg Morphine Sulfate (Morphine 15 Mg Tab.Sr.12h) 15 mg PO BID [facility]; Protocol Last Admin: 09/13/22 21:02 Dose: 15 mg Nicotine (Nicotine 14 Mg Patch) 14 mg TOPICAL DAILY@1000 [facility] Last Admin: 09/13/22 09:14 Dose: 14 mg Ondansetron HCl (Ondansetron 4 Mg/2 Ml Vial) 4 mg IV Q4HP PRN; Protocol PRN Reason: Nausea And Vomiting Last Admin: 09/13/22 00:15 Dose: 4 mg Oxycodone HCl (Oxycodone Ir 5 Mg Tablet) 10 mg PO Q6HP PRN; Protocol PRN Reason: Per Pain Protocol Last Admin: 09/14/22 07:40 Dose: 10 mg Pantoprazole Sodium (Pantoprazole 40 Mg Tablet) 40 mg PO BIDAC [facility] Last Admin: 09/14/22 07:39 Dose: 40 mg Gabapentin Enacarbil 300 Mg Tablet Extended Release 1 dose PO TID [facility] Last Admin: 09/13/22 21:06 Dose: Not Given Prochlorperazine (Prochlorperazine 10 Mg/2 Ml Vial) 10 mg IV Q4HP PRN PRN Reason: Nausea And Vomiting Last Admin: 09/12/22 07:53 Dose: 10 mg Senna (Sennosides 1 Tablet) 2 tab PO HSP PRN PRN Reason: Constipation Last Admin: 09/10/22 08:58 Dose: 2 tab Simethicone (Simethicone 80 Mg Tab.Chew) 80 mg PO QID [facility] Last Admin: 09/13/22 21:02 Dose: 80 mg Sodium Chloride (0.9 % Sodium Chloride 10 Ml Syringe) 10 ml IV Q8 [facility] Last Admin: 09/14/22 04:05 Dose: 10 ml Trazodone HCl (Trazodone Hcl 100 Mg Tablet) 100 mg PO HSP PRN PRN Reason: Insomnia Last Admin: 09/13/22 21:01 Dose: 100 mg A/P Narrative A/P Narrative: A: #Right diabetic foot infection at surgical incision wound dehiscence: -wound growing MSSA/Enterobacter/Klebsiella #DM1: A1c 10.0 #DIONE on CKD IIIb: -starting to downtrend now #Peripheral edema/Hypoalbuminemia #metabolic acidosis: 2/2 renal dz #Chronic anemia: stable #Hyponatremia/Hyperphos: #h/o Left BKA #HTN/HLD: #Chr pain, abd: *Substance abuse: per records fentanyl/meth. last used meth was April, denies IV. MJ use *GERD: *Anxiety: Plan: -ID following, transitioned to levoquin, total abx course of 14-days, f/u in ID clinic -Follow blood cultures: NGTD. -Monitor hemoglobin and renal function -Analgesics, avoid NSAIDs. -Added baclofen as needed for muscle spasms. -Lantus 20 units HS and SSI medium dose. -Continue home amlodipine(decreased to 5mg for edema)/toprol, aspirin/atorvastatin, buspirone/Cymbalta -renally dose gabapentin -hold ACEI for dione -Nephrology following -Referral to the newsroom intern for diabetes management -pt needs new scripts for all her home meds -ppx: Heparin SQ / home ppi CODE STATUS: Packaging Technician Spent With Patient Time: Total time spent is greater than 50% in coordination of care (as documented) at patient's floor/unit and/or counseling patient: Subsequent: Total time with patient: 35 - 49 minutes QUALITY Stroke Symptom Onset Unknown: No VTE Deep Vein Thrombosis/Pulmonary Embolism Present on Admission: No
--- NOTE | 2022-09-14 08:42 | Infectious Disease Prog Note ---
Telemedicine Intake Start Time: 08:25 End Time: 08:40 Consent for assessment and treatment to occur via virtual technology obtained from: Patient Location of Provider: Home SUBJECTIVE Subjective Patient information: Note initiated : 09/14/22 at 8:40 am Service Date, if different from initiated Date: [] Patient: Rebekah Angulo 41 y/o F admitted on 09/08/22. Chief Complaint: [] Interval history: Feels better, pain still present in the back No fevers or chills Foot is feeling much better and no itching. Received Levofloxacin dose 2 days ago without any side effects so far. Constitutional Vitals: Vital Signs Temp Pulse Resp BP Pulse Ox O2 Del Method 98.4 F 65 18 117/74 99 Room Air 09/14/22 08:00 09/14/22 08:00 09/14/22 08:00 09/14/22 08:00 09/14/22 08:00 09/14/22 08:00 Period Temp Pulse Resp BP Sys/Ding Pulse Ox O2 Del Method O2 Flow Rate Last 24 Hr 98.2 F-98.8 F 65-77 17-18 108-127/68-80 95-99 Room Air-Room Air Intake and Output 09/13/22 09/14/22 09/14/22 19:59 03:59 11:59 Intake Total 0 500 Output Total 1000 450 600 Balance -1000 50 -600 Weight 81.511 kg Intake & Output: Intake & Output 09/13/22 09/14/22 09/14/22 19:59 03:59 11:59 Intake Total 0 500 Output Total 1000 450 600 Balance -1000 50 -600 Weight 81.511 kg Intake: Oral 0 500 Output: Void Amount 1000 450 600 Other: Meal Dinner Percent of Meal Consumed 75% Urine Appearance Clear Clear Urine Color Yellow Yellow Yellow Pale Urine Odor Normal Normal Normal Stool Size Large Stool Color Green Stool Consistency Normal for Patient # Voids 1 Head Head exam: Present normal inspection Eye Eye exam: Present EOMI Neck Neck exam: Present normal inspection Respiratory Respiratory exam: Absent respiratory distress Skin Additional comments: Right foot, TMA site with open wound, no erythema, dry skin, base of wound pinkish and mild serous drainage. Dressing in Kerlix A/P Assessment and plan (1) Cellulitis of foot, right: Assessment and plan: Cultures with MSSA (not properly reported under micro, results to be scanned in chart), Enterobacter and Klebsiella. No further erythema, wound healing well Plan: Switched to Levofloxacin on 09/12, complete total 14 day course Wound care, moisturize dry skin to avoid cracks which can be inciting factor for cellulitis Recommend covering wound until wound closes Protective shoes Status: Acute Time Spent With Patient Time: Total time spent is greater than 50% in coordination of care (as documented) at patient's floor/unit and/or counseling patient: Subsequent: Total time with patient: Less than 25 minutes MEDS/ALLERGIES Home Medications and Allergies Home Medications Medication Instructions Recorded Confirmed Type aspirin-sodium bicarbonate-citric 324 mg PO QDAY 04/22/22 09/09/22 History acid 324 mg effervescent tablet Bacillus coagulans-inulin 1 1 cap PO DAILY 06/21/22 09/09/22 History billion cell-250 mg capsule acetaminophen 500 mg tablet 500 mg PO Q4HP PRN Pain 09/09/22 09/09/22 History simethicone 80 mg chewable tablet 80 mg PO QID 09/09/22 09/09/22 History albuterol sulfate 90 mcg/actuation 2 puff inhalation Q6H PRN 09/11/22 Rx aerosol inhaler Shortness Of Breath #1 g atorvastatin 80 mg tablet 80 mg PO QDAY #30 tabs 09/11/22 Rx buspirone 5 mg tablet 10 mg PO BID #120 tabs 09/11/22 Rx cholecalciferol (vitamin D3) 125 125 mcg PO QDAY #30 tabs 09/11/22 Rx mcg (5,000 unit) tablet duloxetine 30 mg capsule,delayed 30 mg PO QDAY #30 caps 09/11/22 Rx release sprinkle gabapentin 300 mg capsule 300 mg PO TID #90 caps 09/11/22 Rx hydrocodone 5 mg-acetaminophen 325 1 tab PO Q6H PRN Pain #20 tabs 09/11/22 Rx mg tablet insulin glargine 100 unit/mL (3 38 unit (0.38 mL) subcut QAM #15 mL 09/11/22 Rx mL) subcutaneous pen insulin lispro 100 unit/mL 7 unit (0.07 mL) subcut AC #15 mL 09/11/22 Rx subcutaneous pen lisinopril 10 mg tablet 10 mg PO QAM #30 tabs 09/11/22 Rx metoclopramide HCl 5 mg tablet 5 mg PO ACHS PRN Nausea #30 tabs 09/11/22 Rx metoprolol succinate 100 mg 100 mg PO BID #60 tabs 09/11/22 Rx tablet,extended release 24 hr naloxone 4 mg/actuation nasal spray 4 mg intranasal Q2M PRN Opioid 09/11/22 Rx Overdose #1 ea pantoprazole 40 mg PO BID #60 tabs 09/11/22 Rx promethazine 25 mg tablet 25 mg PO Q6H PRN Nausea #20 tabs 09/11/22 Rx trazodone 100 mg PO HS PRN Insomnia #30 tabs 09/11/22 Rx amlodipine 5 mg tablet (Norvasc) 5 mg PO QDAY #30 tabs 09/13/22 Rx Allergies Allergy/AdvReac Type Severity Reaction Status Date / Time cefepime Allergy Severe Swelling Verified 09/09/22 01:25 of Lip/Tongue/Throat peanut Allergy Mild Rash Verified 09/09/22 08:47
[2022-09-14 09:24] LABS: Creatinine, Spot Urine 43.1 mg/dL (28.0-217.0); Pro:Crea Ratio 6.73 (<0.20)
[2022-09-14] MEDS: SIMETHICONE 80 MG TAB.CHEW PO SCH ×2 (09:55→11:38)
[2022-09-14] MEDS: METOPROLOL SUCCINATE 50 MG TAB.XL.24H PO SCH (09:55)
[2022-09-14] MEDS: HEPARIN 5,000 UNIT/ML VIAL SQ SCH (09:55)
[2022-09-14] MEDS: LEVOFLOXACIN 750 MG TABLET PO SCH (09:55)
[2022-09-14] MEDS: morphine 15 MG TAB.SR.12H PO SCH (09:55)
[2022-09-14] MEDS: GABAPENTIN 300 MG CAPSULE PO SCH (09:55)
[2022-09-14] MEDS: ASPIRIN 325 MG ENTERIC COATED TABLET PO SCH (09:55)
[2022-09-14] MEDS: amLODIPine 5 MG TABLET PO SCH (09:55)
[2022-09-14] MEDS: busPIRone 5 MG TABLET PO SCH (09:55)
[2022-09-14] MEDS: GABAPENTIN ENACARBIL 300 MG PO SCH (09:56)
[2022-09-14] MEDS: NICOTINE 14 MG PATCH TOPICAL SCH (09:56)
[2022-09-14] MEDS: DULoxetine 30 MG CAPSULE PO SCH (10:12)
== END 2022-09-14 12:30 | disposition home or self-care (01) | DRG 863 ==
LOC: ED 15:39 → ICU 23:09 → MEDSUR 09-10 14:02
PROVIDERS: ADMIT Internal Medicine; ATTEND Internal Medicine